=== PATIENT | male | born 1955 | race American Indian/Alaskan Native ===

== ENCOUNTER 2017-02-11 20:41 | Inpatient (IN) | payer OTHER ==
[2017-02-11 21:23] LABS: Basophils % (Auto) 0.5 % (0.0-1.8); Hematocrit 32.5 % (35.5-45.6); Mean Corpuscular HGB Conc 34 % (32-34); Mean Corpuscular Hemoglobin 23 pg (28-32); Mean Corpuscular Volume 69 fl (84-94); Platelet Count 227 K/mm3 (140-440); Red Blood Count 4.74 M/mm3 (3.65-5.03); Red Cell Distribution Width 16.5 % (13.2-15.2); White Blood Count 9.2 K/mm3 (4.5-11.0)
[2017-02-11 21:36] LABS: Anion Gap 17 mmol/L; BUN/Creatinine Ratio 19; Blood Urea Nitrogen 26 mg/dL (9-20); Calcium 9.1 mg/dL (8.4-10.2); Carbon Dioxide 25 mmol/L (22-30); Chloride 100.9 mmol/L (98-107); Glucose 249 mg/dL (75-100); Potassium 3.8 mmol/L (3.6-5.0); Sodium 139 mmol/L (137-145)
[2017-02-12] MEDS ORDERED: ZOFRAN IV ONE (01:38)
[2017-02-12] MEDS ORDERED: NITRO-BID 2% TP ONE (01:38)
[2017-02-12] MEDS ORDERED: MORPHINE IV ONE (01:38)
[2017-02-12] MEDS ORDERED: ASPIRIN PO ONE (01:38)
--- NOTE | 2017-02-12 01:43 | Emergency Department Report ---
HPI - General Chief Complaint: Chest Pain Time Seen by Provider: 02/12/17 01:30 - HPI HPI: Room 4 The patient is a 61-year-old male presenting with a chief complaint of chest pain. The patient states his symptoms began this afternoon at approximately 13: 00 all at rest. The patient states she developed substernal left-sided chest tightness that has been intermittent. Patient denies shortness of breath, nausea/vomiting or diaphoresis. The patient currently gets his chest tightness score of 5/10. The patient states his last cardiac catheterization occurred 4- 5 years ago when he had cardiac stents placed Location: Chest Duration: Intermittent since 13:00 Quality: Tightness Severity: 5/10 Modifying factors: [see above] Context: [see above] Mode of transportation: [not driving] ED Past Medical Hx - Past Medical History Hx Hypertension: Yes Hx Heart Attack/AMI: Yes (X2) Hx Diabetes: Yes - Surgical History Hx Coronary Stent: Yes Additional Surgical History: 2 cardiac stents - Family History Family history: no significant - Social History Smoking Status: Former Smoker (none 5 years) Substance Use Type: None (denies illicit drug use) - Medications Home Medications: Home Medications Medication Instructions Recorded Confirmed Last Taken Type Amlodipine Besylate [Norvasc] 10 mg PO QDAY 07/12/13 09/22/15 07/11/13 19:30 History 10 mg Aspirin [Aspirin Enteric Coated] 325 mg PO QDAY 07/12/13 09/22/15 07/11/13 06: 00 History 325 mg Doxazosin [Cardura] 2 mg PO QHS 07/12/13 09/22/15 07/11/13 19:30 History 1 mg Losartan [Cozaar] 100 mg PO QDAY 07/12/13 09/22/15 07/10/13 History 50 mg Metoprolol [Lopressor TAB] 25 mg PO BID 07/12/13 09/22/15 07/11/13 19:30 History 25 mg Prasugrel [Effient] 10 mg PO QDAY 07/12/13 09/22/15 07/11/13 06:00 History 10 mg Simvastatin 40 mg PO QHS 07/06/15 09/22/15 Unknown History Ciprofloxacin HCl [Ciprofloxacin 500 mg PO Q12HR #20 tab 09/22/15 Unknown Rx TAB] HYDROcodone/APAP 5-325 [[place] 1 each PO Q6HR PRN #20 tablet 09/22/15 Unknown Rx 5/325] ED Review of Systems ROS: Stated complaint: CHEST PAIN Other details as noted in HPI Comment: All other systems reviewed and negative Constitutional: denies: chills, fever Eyes: denies: eye pain, eye discharge, vision change ENT: denies: ear pain, throat pain Respiratory: denies: cough, shortness of breath, wheezing Cardiovascular: chest pain Endocrine: no symptoms reported Gastrointestinal: denies: abdominal pain, nausea, diarrhea Genitourinary: denies: urgency, dysuria Musculoskeletal: denies: back pain, joint swelling, arthralgia Skin: denies: rash, lesions Neurological: denies: headache, weakness, paresthesias Psychiatric: denies: anxiety, depression Hematological/Lymphatic: denies: easy bleeding, easy bruising Physical Exam - Physical Exam Vital Signs: Vital Signs 02/11/17 02/12/17 20:47 00:49 Temperature 98.3 F 98.2 F Pulse Rate 78 71 Respiratory 14 Rate Blood Pressure 168/70 Blood Pressure 168/81 [Left] O2 Sat by Pulse 98 99 Oximetry Physical Exam: GENERAL: The patient is well-developed well-nourished male lying on stretcher not appearing to be in acute distress. [] HEENT: Normocephalic. Atraumatic. Extraocular motions are intact. Patient has moist mucous membranes. NECK: Supple. Trachea midline CHEST/LUNGS: Clear to auscultation. There is no respiratory distress noted. HEART/CARDIOVASCULAR: Regular. There is no tachycardia. There is no gallop rub or murmur. ABDOMEN: Abdomen is soft, nontender. Patient has normal bowel sounds. There is no abdominal distention. SKIN: There is no rash. There is no diaphoresis. NEURO: The patient is awake, alert, and oriented. The patient is cooperative. The patient has normal speech MUSCULOSKELETAL:There is no evidence of acute injury. ED Course Vital Signs 02/11/17 02/12/17 20:47 00:49 Temperature 98.3 F 98.2 F Pulse Rate 78 71 Respiratory 14 Rate Blood Pressure 168/70 Blood Pressure 168/81 [Left] O2 Sat by Pulse 98 99 Oximetry ED Medical Decision Making - Lab Data Result diagrams: 02/11/17 21:11 02/11/17 21:11 Laboratory Tests 02/11/17 02/11/17 02/12/17 21:11 21:11 00:28 WBC 9.2 RBC 4.74 Hgb 11.0 L Hct 32.5 L MCV 69 L MCH 23 L MCHC 34 RDW 16.5 H Plt Count 227 Lymph % (Auto) 26.2 [place] % (Auto) 7.6 H Eos % (Auto) 1.0 Baso % (Auto) 0.5 Lymph # 2.4 [place] # 0.7 Eos # 0.1 Baso # 0.0 Seg Neutrophils % 64.7 Seg Neutrophils # 6.0 Sodium 139 Potassium 3.8 Chloride 100.9 Carbon Dioxide 25 Anion Gap 17 BUN 26 H Creatinine 1.4 Estimated GFR > 60 BUN/Creatinine Ratio 19 Glucose 249 H Calcium 9.1 Troponin T < 0.010 < 0.010 - EKG Data -: EKG Interpreted by Me EKG shows normal: sinus rhythm Rate: normal - EKG Data When compared to previous EKG there are: no significant change Interpretation: unchanged when compared t (09/22/2015) - Radiology Data Radiology results: image reviewed (chest x-ray) interpreted by me: Chest x-ray-no focal infiltrates, no pneumothorax - Differential Diagnosis ACS, GERD, pericarditis Critical care attestation.: If time is entered above; I have spent that time in minutes in the direct care of this critically ill patient, excluding procedure time. ED Disposition Clinical Impression: Chest pain Disposition: 09 OP ADMIT IP TO THIS HOSP Is pt being admited?: Yes Does the pt Need Aspirin: Yes Condition: Fair Instructions: Chest Pain (ED) Referrals: PRIMARY CARE, [Primary Care Provider] - 3-5 Days Time of Disposition: 02:02 (hospitalist paged)
[2017-02-12] MEDS ORDERED: ZOFRAN IV PRN (04:04)
[2017-02-12] MEDS ORDERED: TYLENOL PO PRN (04:04)
[2017-02-12] MEDS ORDERED: MORPHINE IV PRN (04:04)
[2017-02-12] MEDS ORDERED: MILK OF MAGNESIA PO PRN (04:04)
[2017-02-12] MEDS ORDERED: DULCOLAX PR PRN (04:04)
--- NOTE | 2017-02-12 04:33 | History and Physical Report ---
History of Present Illness Date of examination: 02/12/17 Date of admission: 02/12/17 04:04 History of present illness: 61 -year-old man with history of diabetes type 2, coronary artery disease complains of chest that was started today. Pain is in the left lateral chest and shoulder, which he is unable to describe, intermittent in nature lasting for 10 minutes, intensity 5/10, no radiation. He cannot identify exacerbating or relieving factors. He denies nausea vomiting, shortness of breath, diaphoresis and palpitation Review Of Systems: Constitutional: no weight loss Ears, eyes, nose, mouth and throat: no nasal congestion, no nasal discharge, no sinus pressure, blurry vision, diplopia Neck: No neck pain or rigidity. Cardiovascular: no orthopnea, palpitations Respiratory: No shortness of breath, cough Gastrointestinal: abdominal pain, hematochezia Genitourinary : no dysuria, frequency , hematuria Musculoskeletal: no muscle ache Integumentary: no rash, no pruritis Neurological: no parathesias, focal weakness Endocrine: no cold or heat intolerance, no polyuria or polydipsia Hematologic/Lymphatic: no easy bruising, no easy bleeding, no gland swelling Allergic/Immunologic: no urticaria, no angioedema. PAST MEDICAL HISTORY:diabetes type 2, coronary artery disease PAST SURGICAL HISTORY: None SOCIAL HISTORY: Denies alcohol, tobacco, drugs FAMILY HISTORY: Hypertension Medications and Allergies Allergies Allergy/AdvReac Type Severity Reaction Status Date / Time No Known Allergies Allergy Verified 07/11/13 22:02 Home Medications Medication Instructions Recorded Confirmed Last Taken Type Amlodipine Besylate [Norvasc] 10 mg PO QPM 07/12/13 02/12/17 07/11/13 19:30 History 10 mg Aspirin [Aspirin Enteric Coated] 81 mg PO QDAY 07/12/13 02/12/17 07/11/13 06:00 History 325 mg Doxazosin [Cardura] 2 mg PO QHS 07/12/13 02/12/17 07/11/13 19:30 History 1 mg Losartan [Cozaar] 100 mg PO QDAY 07/12/13 02/12/17 07/10/13 History 50 mg Metoprolol [Lopressor TAB] 25 mg PO BID 07/12/13 02/12/17 07/11/13 19:30 History 25 mg Prasugrel [Effient] 10 mg PO QDAY 07/12/13 02/12/17 07/11/13 06:00 History 10 mg Simvastatin 40 mg PO QHS 07/06/15 02/12/17 Unknown History Active Meds: Active Medications Acetaminophen (Tylenol) 650 mg PO Q4H PRN PRN Reason: Pain MILD(1-3)/Fever >100.5/CUEVA Bisacodyl (Dulcolax) 10 mg [place] QDAY PRN PRN Reason: Constipation unrelieved by MOM Enoxaparin Sodium (Lovenox) 40 mg SUB-Q QDAY SOL Magnesium Hydroxide (Milk Of Magnesia) 30 ml PO Q4H PRN PRN Reason: Constipation Morphine Sulfate (Morphine) 2 mg IV Q4H PRN PRN Reason: Pain, Moderate (4-6) Ondansetron HCl (Zofran) 4 mg IV Q8H PRN PRN Reason: N/V unrelieved by Reglan Exam - Physical Exam Narrative exam: Gen. appearance: Patient lying in bed in no acute distress HEENT: Normocephalic/atraumatic, pupils equal round reactive to light, extra alkaline movement intact, no scleral icterus, no JVD or thyromegaly or nodule, neck is supple, mucous membrane moist, no erythema or exudate Heart: S1-S2, regular rate and rhythm Lungs: Clear to auscultation bilateral breathing comfortable Abdomen: Positive bowel sounds, nontender, nondistended, no organomegaly Extremities: No edema, cyanosis, clubbing Neuro:: Oriented 3 , cranial nerves II-12 intact, speech, motor intact Skin: No rash, nodules, warm dry - Constitutional Vitals: Temp Pulse Resp BP Pulse Ox 98.5 F 70 16 167/83 100 02/12/17 04:15 02/12/17 04:15 02/12/17 04:15 02/12/17 04:15 02/12/17 04:15 Results - Labs CBC & Chem 7: 02/13/17 04:58 02/13/17 04:58 - Imaging and Cardiology EKG: image reviewed Chest x-ray: image reviewed Assessment and Plan Assessment Unstable angina Diabetes type 2 uncontrolled Coronary artery disease Admit to medicine Check cardiac enzymes, lipid profile and obtain stress test Check fingersticks initiated insulin scale continue appropriate outpatient medications Start DVT prophylaxis Plan
[2017-02-12] MEDS ORDERED: D50W (25GM) Syringe IV PRN (04:35)
[2017-02-12 04:59] LABS: Creatine Kinase MB 2.7 ng/mL (0.0-4.0)
[2017-02-12 05:01] LABS: Creatine Kinase 92 units/L (55-170)
--- NOTE | 2017-02-12 07:21 | XRay Report ---
Single view chest: History: Chest pain. Findings: Normal cardiomediastinal silhouette. Trachea is midline. No consolidation, pneumothorax or pleural effusion. Impression: No acute cardiopulmonary findings.
[2017-02-12 08:26] LABS: Creatine Kinase MB 2.6 ng/mL (0.0-4.0)
[2017-02-12] MEDS ORDERED: LEXISCAN IV ONE ×2 (10:54→10:57)
--- NOTE | 2017-02-12 13:08 | Consultation ---
History of Present Illness Consult date: 02/12/17 Consult reason: chest pain History of present illness: This is a 61yr old male with a history of multivessel coronary artery disease who presented with complaints of chest pain. There was no reports of shortness of breath, dizziness or palpitations. No acute ischemic changes on his ECG. His most recent cardiac workup was a negative exercise treadmill test done 2 years ago. Patient was admitted for rule out ACS with a persantine stress thallium test today. Cardiology consultation was requested. Medications and Allergies Allergies Allergy/AdvReac Type Severity Reaction Status Date / Time No Known Allergies Allergy Verified 07/11/13 22:02 Home Medications Medication Instructions Recorded Confirmed Last Taken Type Amlodipine Besylate [Norvasc] 10 mg PO QPM 07/12/13 02/12/17 07/11/13 19:30 History 10 mg Aspirin [Aspirin Enteric Coated] 81 mg PO QDAY 07/12/13 02/12/17 07/11/13 06:00 History 325 mg Doxazosin [Cardura] 2 mg PO QHS 07/12/13 02/12/17 07/11/13 19:30 History 1 mg Losartan [Cozaar] 100 mg PO QDAY 07/12/13 02/12/17 07/10/13 History 50 mg Metoprolol [Lopressor TAB] 25 mg PO BID 07/12/13 02/12/17 07/11/13 19:30 History 25 mg Prasugrel [Effient] 10 mg PO QDAY 07/12/13 02/12/17 07/11/13 06:00 History 10 mg Simvastatin 40 mg PO QHS 07/06/15 02/12/17 Unknown History Active Meds: Active Medications Acetaminophen (Tylenol) 650 mg PO Q4H PRN PRN Reason: Pain MILD(1-3)/Fever >100.5/CUEVA Bisacodyl (Dulcolax) 10 mg SD QDAY PRN PRN Reason: Constipation unrelieved by MOM Dextrose (D50w (25gm) Syringe) 50 ml IV PRN PRN PRN Reason: Hypoglycemia Enoxaparin Sodium (Lovenox) 40 mg SUB-Q QDAY SOL Insulin Aspart (Novolog) 0 units SUB-Q ACHS SOL PRN Reason: Protocol Magnesium Hydroxide (Milk Of Magnesia) 30 ml PO Q4H PRN PRN Reason: Constipation Morphine Sulfate (Morphine) 2 mg IV Q4H PRN PRN Reason: Pain, Moderate (4-6) Ondansetron HCl (Zofran) 4 mg IV Q8H PRN PRN Reason: N/V unrelieved by Reglan Physical Examination Vital Signs Temp Pulse BP Pulse Ox 98.3 F 78 168/70 98 02/11/17 20:47 02/11/17 20:47 02/11/17 20:47 02/11/17 20:47 General appearance: no acute distress HEENT: Positive: PERRL Neck: Positive: trachea midline Cardiac: Positive: Reg Rate and Rhythm Results 02/11/17 21:11 02/11/17 21:11 Cardiac Enzymes 02/12/17 02/12/17 Range/Units 04:13 06:31 CK-MB (CK-2) 2.7 2.6 (0.0-4.0) ng/mL Assessment and Plan Chest pain Hx of multivessel CAD Hypertension Diabetes mellitus
[2017-02-12] MEDS: NOVOLOG SUB-Q SCH ×5 (14:27→21:15)
[2017-02-12] MEDS: LOVENOX SUB-Q SCH ×2 (14:27→14:33)
--- NOTE | 2017-02-12 16:28 | Event Note ---
Date: 02/12/17 patient seen and examined, in no acute distress. Believes this could be secondary to Excessive PT. Will monitor.
--- NOTE | 2017-02-13 01:31 | Treadmill Report ---
THALIUM STRESS REPORT LEFT VENTRICLE: Left ventricular chamber size is within normal. Perfusion study demonstrates homogeneous uptake of the tracer in all segments. No significant perfusion defects identified. Mild diaphragmatic attenuation artifact is noted. Gated analysis demonstrates normal left ventricular systolic function, ejection fraction 64%. CONCLUSION: Normal myocardial perfusion study. JOB# [id number] CA/NTS
[2017-02-13] MEDS ORDERED: APRESOLINE IV PRN (04:47)
[2017-02-13 05:35] LABS: Basophils % (Auto) 0.4 % (0.0-1.8); Eosinophils % (Auto) 0.9 % (0.0-4.3); Hematocrit 31.2 % (35.5-45.6); Hemoglobin 10.6 gm/dl (11.8-15.2); Mean Corpuscular HGB Conc 34 % (32-34); Platelet Count 202 K/mm3 (140-440); Red Blood Count 4.54 M/mm3 (3.65-5.03); Red Cell Distribution Width 16.5 % (13.2-15.2); White Blood Count 7.9 K/mm3 (4.5-11.0)
[2017-02-13 05:36] LABS: Mean Corpuscular Hemoglobin 23 pg (28-32); Mean Corpuscular Volume 69 fl (84-94)
[2017-02-13 05:42] LABS: Anion Gap 16 mmol/L; BUN/Creatinine Ratio 13; Blood Urea Nitrogen 16 mg/dL (9-20); Calcium 8.8 mg/dL (8.4-10.2); Carbon Dioxide 26 mmol/L (22-30); Chloride 103.7 mmol/L (98-107); Glucose 110 mg/dL (75-100); Potassium 3.7 mmol/L (3.6-5.0); Sodium 142 mmol/L (137-145)
[2017-02-13 06:46] VITALS: BP 146/82
--- NOTE | 2017-02-13 09:50 | Discharge Summary ---
Providers - Providers Date of Admission: 02/12/17 04:04 Attending physician: ABDULLAHI MONET MD 02/12/17 08:43 Consult to Physician [CONS] Routine Consulting Provider: CHELA LOO Reason For Exam: CHEST PAIN, CAD Place consult to:: [place] Notified:: YES Primary care physician: [employer] Hospitalization Reason for admission: chest pain Condition: Stable Hospital course: 61 -year-old man with history of diabetes type 2, coronary artery disease complains of chest that was started today. Pain is in the left lateral chest and shoulder, which he is unable to describe, intermittent in nature lasting for 10 minutes, intensity 5/10, no radiation. He cannot identify exacerbating or relieving factors. He denies nausea vomiting, shortness of breath, diaphoresis and palpitation on admission after stress test which came back negative the patient reported that he had just finished physical therapy today prior to this pain. Was seen by cardiology and this was echoed as possibly musculoskeletal chest pain. Patient does not have any stable and generally stable at this time for discharge. Discharge diagnoses Atypical chest pain-costochondritis Diabetes type 2 uncontrolled Coronary artery disease Disposition: DC-01 TO HOME OR SELFCARE Time spent for discharge: 35 MINS Core Measure Documentation - Palliative Care Palliative Care/ Comfort Measures: Not Applicable - Core Measures Any of the following diagnoses?: none - VTE Discharge Requirements Deep Vein Thrombosis/Pulmonary Embolism Present on Admission: No Exam - Physical Exam Narrative exam: VITAL SIGNS: Reviewed. GENERAL: The patient appeared well nourished and normally developed. Vital signs as documented. HEAD: No signs of head trauma. EYES: Pupils are equal. Extraocular motions intact. EARS: Hearing grossly intact. MOUTH: Oropharynx is normal. NECK: No adenopathy, no JVD. CHEST: Chest with clear breath sounds bilaterally. No wheezes, rales, or rhonchi. CARDIAC: Regular rate and rhythm. S1 and S2, without murmurs, gallops, or rubs. VASCULAR: No Edema. Peripheral pulses normal and equal in all extremities. ABDOMEN: Soft, without detectable tenderness. No sign of distention. No rebound or guarding, and no masses palpated. Bowel Sounds normal. MUSCULOSKELETAL: Good range of motion of all major joints. Extremities without clubbing, cyanosis or edema. NEUROLOGIC EXAM: Alert and oriented x 3. No focal sensory or strength deficits. Speech normal. Follows commands. PSYCHIATRIC: Mood normal. SKIN: No rash or lesions. - Constitutional Vitals: Temp Pulse Resp BP Pulse Ox 98.5 F 67 18 146/82 100 02/13/17 03:56 02/13/17 05:14 02/13/17 03:56 02/13/17 06:45 02/13/17 03:56 Plan Activity: advance as tolerated, fall precautions Diet: low fat Follow up with: [facility] [Provider Group] - 7 Days CHELA LOO MD [Staff Physician] - 7 Days PRIMARY CAREMD [Primary Care Provider] - 3-5 Days
[2017-02-13] MEDS: LOVENOX SUB-Q SCH (11:00)
--- NOTE | 2017-02-13 11:04 | Progress Note ---
Assessment and Plan Chest pain persantine thallium stress test was normal, no ischemia noted on myocardial perfusion imaging. Hx of multivessel CAD Hypertension Diabetes mellitus Continue medical therapy and risk factor modification for coronary artery disease. Stable cardiac tesfaye. Patient will follow up with [facility] as previously scheduled. Subjective Date of service: 02/13/17 Interval history: Patient denies chest pain. Objective Vital Signs Temp Pulse Resp BP BP Pulse Ox 02/13/17 10:30 99 02/13/17 06:45 146/82 02/13/17 05:14 67 187/94 02/13/17 03:56 98.5 F 67 18 187/94 100 02/13/17 00:26 98.7 F 62 18 166/74 96 02/12/17 21:01 98.5 F 60 18 165/84 98 02/12/17 20:28 20 98 02/12/17 19:45 63 02/12/17 16:57 98.4 F 67 18 173/83 98 02/12/17 14:35 99 02/12/17 12:17 62 02/12/17 11:40 97.5 F L 71 18 177/78 100 - Physical Examination General: No Apparent Distress HEENT: Positive: PERRL Neck: Positive: trachea midline Cardiac: Positive: Reg Rate and Rhythm - Labs and Meds CBC 02/13/17 Range/Units 04:58 WBC 7.9 (4.5-11.0) K/mm3 RBC 4.54 (3.65-5.03) M/mm3 Hgb 10.6 L (11.8-15.2) gm/dl Hct 31.2 L (35.5-45.6) % Plt Count 202 (140-440) K/mm3 Lymph # 1.7 (1.2-5.4) K/mm3 [place] # 0.6 (0.0-0.8) K/mm3 Eos # 0.1 (0.0-0.4) K/mm3 Baso # 0.0 (0.0-0.1) K/mm3 Comprehensive Metabolic Panel 02/13/17 Range/Units 04:58 Sodium 142 (137-145) mmol/L Potassium 3.7 (3.6-5.0) mmol/L Chloride 103.7 (98-107) mmol/L Carbon Dioxide 26 (22-30) mmol/L BUN 16 (9-20) mg/dL Creatinine 1.2 (0.8-1.5) mg/dL Glucose 110 H (75-100) mg/dL Calcium 8.8 (8.4-10.2) mg/dL - Imaging and Cardiology EKG: image reviewed
[2017-02-13] MEDS ORDERED: Fluarix Quad 2017-2018(36 MOS+) IM ONE (12:00)
== END 2017-02-13 11:35 | disposition home or self-care (01) | DRG 206 ==
LOC: ED 20:41 → 4A 02-12 04:04
PROVIDERS: ADMIT Internal Medicine; ATTEND Internal Medicine
PROC: 3E0234Z Introduction of Serum, Toxoid and Vaccine into Muscle, Percutaneous Approach (ICD-10-PCS; principal; 2017-02-12)
DX: M94.0 Chondrocostal junction syndrome [Tietze] (principal); I25.110 Atherosclerotic heart disease of native coronary artery with unstable angina pectoris; E11.9 Type 2 diabetes mellitus without complications; Z98.61 Coronary angioplasty status; Z79.82 Long term (current) use of aspirin; Z79.899 Other long term (current) drug therapy; Z87.891 Personal history of nicotine dependence; Z82.49 Family history of ischemic heart disease and other diseases of the circulatory system; Z23 Encounter for immunization
CPT/HCPCS: 36415; 71010; 78452; 80048; 82550; 82553; 82962; 84484; 85025; 90686; 93005; 93010; 93017; 96374; 96375; A9502; J0360; J1650; J1815; J2270; J2405; J2785

== ENCOUNTER 2019-04-13 11:43 | Inpatient (IN) | payer MEDICARE, OTHER ==
--- NOTE | 2019-04-13 11:52 | Emergency Department Report ---
Blank Doc - Documentation Documentation: 63-year-old male that presents with bilateral leg pain and swelling. HX of ca rdiac with stents. This initial assessment/diagnostic orders/clinical plan/treatment(s) is/are subject to change based on patient's health status, clinical progression and re- assessment by fellow clinical providers in the ED. Further treatment and workup at subsequent clinical providers discretion. Patient/guardians urged not to elope from the ED as their condition may be serious if not clinically assessed and managed. Initial orders include: 1- Patient sent to MAIN ED for further evaluation and treatment 2- labs 3- EKG 4- CXR
[2019-04-13 12:12] LABS: Basophils % (Auto) 0.4 % (0.0-1.8); Eosinophils # (Auto) 0.1 K/mm3 (0.0-0.4); Eosinophils % (Auto) 0.8 % (0.0-4.3); Hematocrit 35.1 % (35.5-45.6); Hemoglobin 11.6 gm/dl (11.8-15.2); Lymphocytes # (Auto) 1.6 K/mm3 (1.2-5.4); Lymphocytes % (Auto) 22.3 % (13.4-35.0); Mean Corpuscular HGB Conc 33 % (32-34); Mean Corpuscular Volume 75 fl (84-94); Monocytes # (Auto) 0.5 K/mm3 (0.0-0.8); Monocytes % (Auto) 6.8 % (0.0-7.3); Platelet Count 217 K/mm3 (140-440); Red Blood Count 4.68 M/mm3 (3.65-5.03); Red Cell Distribution Width 16.2 % (13.2-15.2)
[2019-04-13 12:22] LABS: INR 1.04 (0.87-1.13)
[2019-04-13 12:23] LABS: Partial Thromboplastin Time 26.6 Sec. (24.2-36.6)
[2019-04-13 12:37] LABS: Albumin 3.5 g/dL (3.9-5); Calcium 9.3 mg/dL (8.4-10.2)
--- NOTE | 2019-04-13 12:42 | XRay Report ---
CHEST 2 VIEWS INDICATION / CLINICAL INFORMATION: Chest Pain. COMPARISON: Chest x-ray on 02/12/2017. FINDINGS: SUPPORT DEVICES: None. HEART / MEDIASTINUM: No significant abnormality. LUNGS / PLEURA: No acute pulmonary or pleural abnormality. Small calcified granuloma in the left uppe r lobe. No pneumothorax. ADDITIONAL FINDINGS: No significant additional findings. IMPRESSION: 1. No acute findings. Signer Name: Issac Francis MD Signed: 04/13/2019 12:38 PM Workstation Name: [id number]
[2019-04-13] MEDS ORDERED: hydrALAZINE 20 MG/1 ML INJ IV ONE ×3 (12:45→15:29)
--- NOTE | 2019-04-13 13:45 | Emergency Department Report ---
HPI - General Chief Complaint: Extremity Problem,Nontraumatic Time Seen by Provider: 04/13/19 11:49 - HPI HPI: 63-year-old -[place] male presents to the emergency department with complaint of bilateral lower extremity swelling and uncontrolled blood pressure. Patient says that the swelling worsens or the day and his legs will get firm. He denies any chest pain, shortness of breath. He has a past medical history of diabetes, coronary artery disease with previous FL and cardiac stents 2, elevated cholesterol. 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 Huber hart, about 2 months ago, and had some blood pressure medications changed. Otherwise he says he has been compliant with the medications. He is a former smoker, having quit about 4-5 years ago. No recent travel, recent surgery or immobility. ED Past Medical Hx - Past Medical History Previous Medical History?: Yes Hx Hypertension: Yes Hx Heart Attack/AMI: Yes (X2) Hx Congestive Heart Failure: No Hx Diabetes: Yes Hx Deep Vein Thrombosis: No Hx Pulmonary Embolism: No Hx Liver Disease: No Hx Renal Disease: No Hx Sickle Cell Disease: No Hx Arthritis: No Hx Seizures: No Hx Kidney Stones: No Hx Asthma: No Hx COPD: No Hx Tuberculosis: No Hx Dementia: No Hx HIV: No Additional medical history: elevated cholesterol - Surgical History Past Surgical History?: Yes Hx Coronary Stent: Yes Hx Open Heart Surgery: No Hx Pacemaker: No Hx Internal Defibrillator: No Hx Cholecystectomy: No Hx Appendectomy: No Hx Breast Surgery: No Additional Surgical History: 2 cardiac stents - Social History Smoking Status: Never Smoker Substance Use Type: None - Medications Home Medications: Home Medications Medication Instructions Recorded Confirmed Last Taken Type Amlodipine Besylate [Norvasc] 10 mg PO QPM 07/12/13 02/12/17 07/11/13 19:30 History 10 mg Aspirin [Aspirin Enteric Coated] 81 mg PO QDAY 07/12/13 02/12/17 07/11/13 06:00 History 325 mg Doxazosin [Cardura] 2 mg PO QHS 07/12/13 02/12/17 07/11/13 19:30 History 1 mg Losartan [Cozaar] 100 mg PO QDAY 07/12/13 02/12/17 07/10/13 History 50 mg Metoprolol [Lopressor TAB] 25 mg PO BID 03/08/2202/12/17 07/11/13 19:30 History 25 mg Prasugrel [Effient] 10 mg PO QDAY 07/12/13 02/12/17 07/11/13 06:00 History 10 mg Simvastatin 40 mg PO QHS 07/06/15 02/12/17 Unknown History ED Review of Systems ROS: Stated complaint: BACK PAIN/LEGS SWOLLEN Other details as noted in HPI Comment: All other systems reviewed and negative Constitutional: denies: chills, fever Eyes: denies: eye pain, vision change ENT: denies: ear pain, throat pain Respiratory: denies: cough, shortness of breath Cardiovascular: edema. denies: chest pain, palpitations Gastrointestinal: denies: abdominal pain, vomiting Genitourinary: denies: dysuria, discharge Musculoskeletal: denies: joint swelling, arthralgia Skin: denies: rash, lesions Neurological: denies: headache, numbness, paresthesias Physical Exam - Physical Exam Vital Signs: Vital Signs 04/13/19 04/13/19 04/13/19 11:51 12:26 12:30 Temperature 97.6 F Pulse Rate 86 79 98 H Respiratory 18 17 17 Rate Blood Pressure 215/106 226/92 Blood Pressure [Left] O2 Sat by Pulse 100 99 99 Oximetry 04/13/19 04/13/19 04/13/19 12:34 12:46 12:51 Temperature Pulse Rate 78 70 69 Respiratory 20 21 Rate Blood Pressure 222/102 222/102 Blood Pressure 226/92 [Left] O2 Sat by Pulse 99 99 Oximetry 04/13/19 04/13/19 04/13/19 13:00 13:16 13:30 Temperature Pulse Rate 73 76 76 Respiratory 19 16 17 Rate Blood Pressure 200/79 191/80 191/80 Blood Pressure [Left] O2 Sat by Pulse 100 100 100 Oximetry Physical Exam: GENERAL: The patient is well-developed well-nourished. HENT: Normocephalic. Atraumatic. Patient has moist mucous membranes. EYES: Extraocular motions are intact. NECK: Supple. Trachea is midline. CHEST/LUNGS: Clear to auscultation. There is no respiratory distress noted. HEART/CARDIOVASCULAR: Regular. There is no tachycardia. There is no murmur. ABDOMEN: Abdomen is soft, nontender. Patient has normal bowel sounds. There is no abdominal distention. SKIN: Skin is warm and dry. There is some mild swelling to the bilateral feet and ankles. NEURO: The patient is awake, alert, and oriented. The patient is cooperative. The patient has no focal neurologic deficits. Normal speech. MUSCULOSKELETAL: There is no tenderness or deformity. There is no evidence of acute injury. ED Course Vital Signs 04/13/19 04/13/19 04/13/19 11:51 12:26 12:30 Temperature 97.6 F Pulse Rate 86 79 98 H Respiratory 18 17 17 Rate Blood Pressure 215/106 226/92 Blood Pressure [Left] O2 Sat by Pulse 100 99 99 Oximetry 04/13/19 04/13/19 04/13/19 12:34 12:46 12:51 Temperature Pulse Rate 78 70 69 Respiratory 20 21 Rate Blood Pressure 222/102 222/102 Blood Pressure 226/92 [Left] O2 Sat by Pulse 99 99 Oximetry 04/13/19 04/13/19 04/13/19 13:00 13:16 13:30 Temperature Pulse Rate 73 76 76 Respiratory 19 16 17 Rate Blood Pressure 200/79 191/80 191/80 Blood Pressure [Left] O2 Sat by Pulse 100 100 100 Oximetry ED Medical Decision Making - Lab Data Result diagrams: 04/13/19 12:00 04/13/19 12:00 - EKG Data -: EKG Interpreted by Me EKG shows normal: sinus rhythm (PACs), axis, intervals, QRS complexes (LVH), ST- T waves Rate: normal - EKG Data When compared to previous EKG there are: previous EKG unavailable Interpretation: LVH - Radiology Data Radiology results: image reviewed interpreted by me: Chest x-ray does not show any acute process. There are no pleural effusions, obvious pneumonia and there is no pneumothorax. - Medical Decision Making This patient presents to the emergency department with a complaint of uncontrolled blood pressure despite compliance, as well as bilateral lower extremity swelling. An EKG was done that does not show any signs of ST elevation FL or dysrhythmia. Chest x-ray does not show any pleural effusions or any other acute process. Patient's labs show acute renal failure with a GFR of 29. The last set of labs that we have here to compare with are from 2017 and he had normal kidney function at that time. Patient also has a slightly elevated and equivocal troponin level of 0.039. This may be related to his renal insufficiency as the patient is not currently having any chest or back pain, shortness of breath. A renal ultrasound has been ordered but not yet completed. The patient will be admitted to the hospital for further evaluation and treatment and was accepted for admission by the hospitalist, Dr. King. - Differential Diagnosis CHF, venous stasis, FL Critical Care Time: No Critical care attestation.: If time is entered above; I have spent that time in minutes in the direct care of this critically ill patient, excluding procedure time. ED Disposition Clinical Impression: Hypertensive urgency, Lower extremity edema, Elevated troponin Acute renal failure Qualifiers: Acute renal failure type: unspecified Qualified Code(s): N17.9 - Acute kidney failure, unspecified Disposition: DC-09 OP ADMIT IP TO THIS HOSP Is pt being admited?: Yes Condition: Fair Time of Disposition: 14:25
[2019-04-13 13:47] LABS: Chol/HDL Ratio 3.06 %
--- NOTE | 2019-04-13 15:08 | History and Physical Report ---
History of Present Illness Date of examination: 04/13/19 Date of admission: 04/13/2019 Chief complaint: bilateral leg edema History of present illness: Patient is 63-year-old male with past medical history of acute SD, diabetes and hypertension. He presents to with complaints of bilateral leg edema with painful gait and elevated blood pressure 3 days. Patient states he has had leg edema intermittently 1 year, but he was concerned about the discoloration to his right foot. Patient states that he is followed by medical records auditor Dr. Ngo and he was last seen in office 2 months ago with changes made to his antihypertensive medications. He denies chest pain or shortness of breath on assessment. Past History Past Medical History: acute SD, CAD, diabetes, hypertension Past Surgical History: PTCA (w/ 2 stents) Social history: smoking (quit 6 years ago), full code Family history: CAD, diabetes Medications and Allergies Allergies Allergy/AdvReac Type Severity Reaction Status Date / Time No Known Allergies Allergy Verified 07/11/13 22:02 Home Medications Medication Instructions Recorded Confirmed Last Taken Type Amlodipine Besylate [Norvasc] 10 mg PO QPM 07/12/13 04/13/19 07/11/13 19:30 History 10 mg Doxazosin [Cardura] 2 mg PO QHS 07/12/13 04/13/19 07/11/13 19:30 History 1 mg Losartan [Cozaar] 100 mg PO QDAY 07/12/13 04/13/19 07/10/13 History 50 mg Metoprolol [Lopressor TAB] 25 mg PO BID 07/12/13 04/13/19 07/11/13 19:30 History 25 mg Simvastatin 40 mg PO QHS 07/06/15 04/13/19 Unknown History Clopidogrel [Plavix] 75 mg PO QDAY 04/13/19 04/13/19 Unknown History NIFEdipine [Nifedipine ER] 90 mg PO QDAY 04/13/19 04/13/19 Unknown History Review of Systems Constitutional: no fever, no chills, no sweats Exam - Constitutional Vitals: Temp Pulse Resp BP Pulse Ox 97.6 F 76 17 191/80 100 04/13/19 11:51 04/13/19 13:30 04/13/19 13:30 04/13/19 13:30 04/13/19 13:30 Results - Labs CBC & Chem 7: 04/13/19 12:00 04/13/19 12:00 Labs: Laboratory Last Values WBC 7.0 K/mm3 (4.5-11.0) 04/13/19 12:00 RBC 4.68 M/mm3 (3.65-5.03) 04/13/19 12:00 Hgb 11.6 gm/dl (11.8-15.2) L 04/13/19 12:00 Hct 35.1 % (35.5-45.6) L 04/13/19 12:00 MCV 75 fl (84-94) L 04/13/19 12:00 MCH 25 pg (28-32) L 04/13/19 12:00 MCHC 33 % (32-34) 04/13/19 12:00 RDW 16.2 % (13.2-15.2) H 04/13/19 12:00 Plt Count 217 K/mm3 (140-440) 04/13/19 12:00 Lymph % (Auto) 22.3 % (13.4-35.0) 04/13/19 12:00 [place] % (Auto) 6.8 % (0.0-7.3) 04/13/19 12:00 Eos % (Auto) 0.8 % (0.0-4.3) 04/13/19 12:00 Baso % (Auto) 0.4 % (0.0-1.8) 04/13/19 12:00 Lymph # 1.6 K/mm3 (1.2-5.4) 04/13/19 12:00 [place] # 0.5 K/mm3 (0.0-0.8) 04/13/19 12:00 Eos # 0.1 K/mm3 (0.0-0.4) 04/13/19 12:00 Baso # 0.0 K/mm3 (0.0-0.1) 04/13/19 12:00 Seg Neutrophils % 69.7 % (40.0-70.0) 04/13/19 12:00 Seg Neutrophils # 4.9 K/mm3 (1.8-7.7) 04/13/19 12:00 PT 13.5 Sec. (12.2-14.9) 04/13/19 12:00 INR 1.04 (0.87-1.13) 04/13/19 12:00 APTT 26.6 Sec. (24.2-36.6) 04/13/19 12:00 Sodium 143 mmol/L (137-145) 04/13/19 12:00 Potassium 4.9 mmol/L (3.6-5.0) 04/13/19 12:00 Chloride 106.1 mmol/L (98-107) 04/13/19 12:00 Carbon Dioxide 23 mmol/L (22-30) 04/13/19 12:00 Anion Gap 19 mmol/L 04/13/19 12:00 BUN 36 mg/dL (9-20) H 04/13/19 12:00 Creatinine 2.7 mg/dL (0.8-1.5) H 04/13/19 12:00 Estimated GFR 29 ml/min 04/13/19 12:00 BUN/Creatinine Ratio 13 % 04/13/19 12:00 Glucose 292 mg/dL (75-100) H 04/13/19 12:00 Calcium 9.3 mg/dL (8.4-10.2) 04/13/19 12:00 Total Bilirubin 0.40 mg/dL (0.1-1.2) 04/13/19 12:00 AST 12 units/L (5-40) 04/13/19 12:00 ALT 8 units/L (7-56) 04/13/19 12:00 Alkaline Phosphatase 101 units/L (35-129) 04/13/19 12:00 Troponin T 0.039 ng/mL (0.00-0.029) H 04/13/19 12:00 NT-Pro-B Natriuret Pep 1384 pg/mL (0-900) H 04/13/19 12:00 Total Protein 6.9 g/dL (6.3-8.2) 04/13/19 12:00 Albumin 3.5 g/dL (3.9-5) L 04/13/19 12:00 Albumin/Globulin Ratio 1.0 % 04/13/19 12:00 Triglycerides 108 mg/dL (2-149) 04/13/19 12:00 Cholesterol 199 mg/dL (50-199) 04/13/19 12:00 LDL Cholesterol Direct 125 mg/dL (50-130) 04/13/19 12:00 HDL Cholesterol 65 mg/dL (40-59) H 04/13/19 12:00 Cholesterol/HDL Ratio 3.06 % 04/13/19 12:00 - Imaging and Cardiology EKG: report reviewed (sinus rhythm (PACs), QRS complexes (LVH), ) Chest x-ray: report reviewed (No acute findings.) Assessment and Plan Assessment and plan: LUIS -Monitor BMP -Consult nephrology -IVF Hypertensive urgency -Monitor BP -Resume home meds, BB increased Lower extremity edema -- diuretic -Strict I/O -daily weight Elevated troponin possibly rt to acute kidney injury - troponin x2 Diabetes type 2 uncontrolled -Blood sugar checks -Sliding scale adjustment -A1c Anemia secondary to chronic kidney disease -monitor cbc DVT Prophylaxis -SCDs while patient in bed -Lovenox Advance Directives: Yes VTE prophylaxis?: Chemical Plan of care discussed with patient/family: Yes
[2019-04-13] MEDS ORDERED: ACETAMINOPHEN 325 MG TAB PO PRN ×2 (16:12→16:16)
[2019-04-13] MEDS ORDERED: ONDANSETRON 4 MG/2 ML INJ IV PRN ×2 (16:12→16:16)
[2019-04-13] MEDS ORDERED: oxyCODONE /ACETAMINOPHEN 5-325MG TAB PO PRN (16:13)
[2019-04-13] MEDS ORDERED: NON-FORMULARY EACH (Nifedipine [Nifedipine Er] 90 MG) PO SCH (16:15)
[2019-04-13] MEDS ORDERED: HYDROmorphone 1 MG/1 ML INJ IV PRN (16:16)
[2019-04-13] MEDS ORDERED: D5W/0.9% NACL 1,000 ML IV SCH (17:00)
--- NOTE | 2019-04-13 17:39 | Ultrasound Report ---
ULTRASOUND RENAL INDICATION: Acute renal failure. COMPARISON: CT scan dated 09/22/2015. FINDINGS: RIGHT KIDNEY: Size: 11.7 cm. Echogenicity: Normal. Cortical thickness: Normal. Stones: Calcifications are noted. Some of these likely represent stones. Some may be vascular.. Hydronephrosis: None. Cyst or mass: None. LEFT KIDNEY: Size: 11.5 cm. Echogenicity: Normal. Cortical thickness: Normal. Stones: Nephrolithiasis and vascular calcifications are noted.. Hydronephrosis: None. Cyst or mass: Small cyst are noted in the left kidney. The largest measures approximately 1.4 cm.. Urinary Bladder: No significant abnormality. Free Fluid: None. Additional Findings: None. IMPRESSION 1. No acute sonographic abnormality of the kidneys. Nephrolithiasis and vascular calcifications are n oted bilaterally. Signer Name: Mamadou Reese MD Signed: 04/13/2019 5:35 PM Workstation Name: [id number]
[2019-04-13] MEDS: LOSARTAN 50 MG TAB PO SCH (19:39)
[2019-04-13] MEDS: NIFEdipine XL 90 MG TAB PO SCH (19:39)
[2019-04-13] MEDS: CLOPIDOGREL 75 MG TAB PO SCH (19:39)
[2019-04-13] MEDS ORDERED: NON-FORMULARY EACH (Simvastatin [Simvastatin] 40 MG) PO SCH (22:00)
[2019-04-13] MEDS ORDERED: METOPROLOL TARTRATE 25 MG TAB PO SCH (22:00)
[2019-04-13] MEDS: PRAVASTATIN 80 MG TAB PO SCH (22:36)
[2019-04-13] MEDS: DOXAZOSIN 1 MG TAB PO SCH (22:36)
[2019-04-13] MEDS: METOPROLOL TARTRATE 50 MG TAB PO SCH (22:36)
[2019-04-13] MEDS: FAMOTIDINE 20 MG TAB PO SCH (22:39)
[2019-04-13] MEDS: hydrALAZINE 20 MG/1 ML INJ IV PRN (23:45)
[2019-04-14] MEDS ORDERED: DEXTROSE 50% IN WATER (25GM) 50 ML SYRINGE IV PRN (01:26)
[2019-04-14 05:28] LABS: Basophils % (Auto) 0.5 % (0.0-1.8); Eosinophils # (Auto) 0.1 K/mm3 (0.0-0.4); Eosinophils % (Auto) 1.3 % (0.0-4.3); Hematocrit 32.9 % (35.5-45.6); Hemoglobin 11.1 gm/dl (11.8-15.2); Lymphocytes # (Auto) 1.5 K/mm3 (1.2-5.4); Lymphocytes % (Auto) 23.7 % (13.4-35.0); Mean Corpuscular HGB Conc 34 % (32-34); Mean Corpuscular Volume 75 fl (84-94); Monocytes # (Auto) 0.6 K/mm3 (0.0-0.8); Platelet Count 200 K/mm3 (140-440)
[2019-04-14 05:48] LABS: Calcium 8.7 mg/dL (8.4-10.2)
[2019-04-14] MEDS: INSULIN LISPRO 100 UNIT/ML SUB-Q SCH ×4 (07:30→22:39)
[2019-04-14] MEDS ORDERED: ASPIRIN 325 MG TAB PO ONE (08:00)
--- NOTE | 2019-04-14 08:11 | Cat Scan Report ---
CT HEAD WITHOUT CONTRAST INDICATION / CLINICAL INFORMATION: STROKE PROTOCOL, Altered Mental Status. TECHNIQUE: Axial imaging performed from the skull apex through the skull base without the use of cont rast. Sagittal and coronal reformatted images. All CT scans at this location are performed using CT dose reduction for ALARA by means of automated exposure control. COMPARISON: None available. FINDINGS: CEREBRAL PARENCHYMA: Moderate hypoattenuation is identified throughout the white matter of the cerebr al hemispheres and miesha consistent with chronic microvascular ischemic disease. No large acute territ orial infarct is detected on noncontrast CT. No mass, mass effect or large chronic infarct. HEMORRHAGE: None. EXTRA-AXIAL SPACES: Normal in size and morphology for the patient's age. VENTRICULAR SYSTEM: Normal in size and morphology for the patient's age. MIDLINE SHIFT OR HERNIATION: None. CEREBELLUM / BRAINSTEM: No significant abnormality. CALVARIUM: No significant abnormality. ORBITS: Normal as visualized. PARANASAL SINUSES / MASTOID AIR CELLS: 1 cm polyp versus mucous retention cyst is noted in the inferi or right maxillary sinus. The remaining sinuses are clear. SOFT TISSUES of HEAD: No significant abnormality. ADDITIONAL FINDINGS: None. IMPRESSION: No acute intracranial abnormality is detected on noncontrast CT. Nonspecific chronic white matter florence nges as described. These findings were relayed to the patient's nurse, Kenia Weston, at 0759 hours EST. A read back was performed. Signer Name: Juan Carlos Jacobo Jr, MD Signed: 04/14/2019 8:06 AM Workstation Name: [id number]
--- NOTE | 2019-04-14 08:11 | Consultation ---
History of Present Illness Consult date: 04/14/19 Past History Past Medical History: acute NC, CAD, diabetes, hypertension Past Surgical History: PTCA (w/ 2 stents) Social history: smoking (quit 6 years ago), full code Family history: CAD, diabetes Medications and Allergies Allergies Allergy/AdvReac Type Severity Reaction Status Date / Time No Known Allergies Allergy Verified 07/11/13 22:02 Home Medications Medication Instructions Recorded Confirmed Last Taken Type Amlodipine Besylate [Norvasc] 10 mg PO QPM 07/12/13 04/13/19 07/11/13 19:30 History 10 mg Doxazosin [Cardura] 2 mg PO QHS 07/12/13 04/13/19 07/11/13 19:30 History 1 mg Losartan [Cozaar] 100 mg PO QDAY 07/12/13 04/13/19 07/10/13 History 50 mg Metoprolol [Lopressor TAB] 25 mg PO BID 07/12/13 04/13/19 07/11/13 19:30 History 25 mg Simvastatin 40 mg PO QHS 07/06/15 04/13/19 Unknown History Clopidogrel [Plavix] 75 mg PO QDAY 04/13/19 04/13/19 Unknown History NIFEdipine [Nifedipine ER] 90 mg PO QDAY 04/13/19 04/13/19 Unknown History Active Meds: Active Medications Acetaminophen (Tylenol) 650 mg PO Q4H PRN PRN Reason: Pain MILD(1-3)/Fever >100.5/CUEVA Clopidogrel Bisulfate (Plavix) 75 mg PO QDAY [facility] Last Admin: 04/13/19 19:39 Dose: 75 mg Documented by: Dextrose (D50w (25gm) Syringe) 0 ml IV Q30MIN PRN; Protocol PRN Reason: Hypoglycemia Doxazosin Mesylate (Cardura) 2 mg PO QHS [facility] Last Admin: 04/13/19 22:36 Dose: 2 mg Documented by: Famotidine (Pepcid) 20 mg PO DAILY [facility] Last Admin: 04/13/19 22:39 Dose: 20 mg Documented by: Hydralazine HCl (Apresoline) 10 mg IV Q3HR PRN PRN Reason: Hypertension Last Admin: 04/13/19 23:45 Dose: 10 mg Documented by: Hydromorphone HCl (Dilaudid) 0.5 mg IV Q3H PRN PRN Reason: Pain , Severe (7-10) Sodium Chloride (Nacl 0.45% 1000 Ml) 1,000 mls @ 100 mls/hr IV DIRECT [facility] Insulin Glargine (Lantus) 10 units SUB-Q BID [facility] Insulin Human Lispro (Humalog) 0 unit SUB-Q ACHS [facility]; Protocol Losartan Potassium (Cozaar) 100 mg PO QDAY [facility] Last Admin: 04/13/19 19:39 Dose: 100 mg Documented by: Metoprolol Tartrate (Metoprolol) 50 mg PO BID [facility] Last Admin: 04/13/19 22:36 Dose: 50 mg Documented by: Nifedipine (Procardia Xl) 90 mg PO QDAY [facility] Last Admin: 04/13/19 19:39 Dose: 90 mg Documented by: Ondansetron HCl (Zofran) 4 mg IV Q8H PRN PRN Reason: Nausea And Vomiting Oxycodone/Acetaminophen (Percocet 5/325) 1 tab PO Q6H PRN PRN Reason: Pain, Moderate (4-6) Pravastatin Sodium (Pravachol) 80 mg PO QHS [facility] Last Admin: 04/13/19 22:36 Dose: 80 mg Documented by: Sodium Chloride (Sodium Chloride Flush Syringe 10 Ml) 10 ml IV BID [facility] Last Admin: 04/13/19 22:37 Dose: 10 ml Documented by: Sodium Chloride (Sodium Chloride Flush Syringe 10 Ml) 10 ml IV PRN PRN PRN Reason: LINE FLUSH Physical Examination - Vital Signs Vital Signs: Vital Signs Temp Pulse Resp BP Pulse Ox 97.6 F 86 18 215/106 100 04/13/19 11:51 04/13/19 11:51 04/13/19 11:51 04/13/19 11:51 04/13/19 11:51 - Assessment Assessment Interval: Baseline - Level of Consciousness 1a. Level of Consciousness: alert/keenly responsive - LOC Questions 1b. LOC Questions: aphasic - LOC Command 1c. LOC Commands: performs no tasks correctly - Best Gaze 2. Best Gaze: normal - Visual 3. Visual: no visual loss - Facial Palsy 4. Facial Palsy: normal symmetrical movement - Motor Arm 5a. Motor Arm Left: no drift 5b. Motor Arm Right: no drift - Motor Leg 6a. Motor Leg Left: some gravity effort 6b. Motor Leg Right: some gravity effort - Limb Ataxia 7. Limb Ataxia: absent - Sensory 8. Sensory: normal - Best Language 9. Best Language: severe aphasia - Dysarthria 10. Dysarthria: severe dysarthria - Extinction and Inattention 11. Extinction/Inattention: no abnormality - Scoring Total Score: 12 Stroke Severity: Moderate Stroke Results - Laboratory Findings CBC and BMP: 04/14/19 04:09 04/14/19 04:09 Abnormal Lab Findings: Abnormal Labs 04/13/19 04/13/19 04/13/19 12:00 12:00 19:07 Hgb 11.6 L Hct 35.1 L MCV 75 L MCH 25 L RDW 16.2 H [place] % (Auto) Chloride BUN 36 H Creatinine 2.7 H Glucose 292 H POC Glucose Hemoglobin A1c Troponin T 0.039 H 0.042 H NT-Pro-B Natriuret Pep 1384 H Total Protein Albumin 3.5 L HDL Cholesterol 65 H 04/13/19 04/13/19 04/13/19 19:07 19:07 22:36 Hgb Hct MCV MCH RDW [place] % (Auto) Chloride BUN Creatinine Glucose POC Glucose Hemoglobin A1c 10.1 H Troponin T 0.044 H 0.040 H NT-Pro-B Natriuret Pep Total Protein Albumin HDL Cholesterol 04/14/19 04/14/19 04/14/19 01:20 04:09 04:09 Hgb 11.1 L Hct 32.9 L MCV 75 L MCH 25 L RDW 16.0 H [place] % (Auto) 9.0 H Chloride 109.7 H BUN 33 H Creatinine 2.5 H Glucose 269 H POC Glucose 238 H Hemoglobin A1c Troponin T NT-Pro-B Natriuret Pep Total Protein 5.8 L Albumin 3.0 L HDL Cholesterol 04/14/19 07:05 Hgb Hct MCV MCH RDW [place] % (Auto) Chloride BUN Creatinine Glucose POC Glucose 314 H Hemoglobin A1c Troponin T NT-Pro-B Natriuret Pep Total Protein Albumin HDL Cholesterol Assessment and Plan [facility] Date of Service: 04/14/2019 07:51:38 Impression: RO Acute Ischemic Stroke Comments: 63 year old male with altered mental status. Concern for possible stroke given acute change vs worsening of a metabolic encephalopathy. Mechanism of Stroke: Not Clear Metrics: Last Known Well: 04/14/2019 03:00:00 [employer] Notification Time: 04/14/2019 07:50:31 Stamp Time: 04/14/2019 07:51:38 Time First Login Attempt: 04/14/2019 07:53:00 Video Start Time: 04/14/2019 07:53:00 Symptoms: Altered mental status NIHSS Start Assessment Time: 04/14/2019 07:56:38 Patient is not a candidate for tPA. Patient was not deemed candidate for tPA thrombolytics because of Last Well Known Above 4.5 Hours. Video End Time: 04/14/2019 08:05:28 CT head showed no acute hemorrhage or acute core infarct. Advanced imaging was not obtained as the presentation was not suggestive of Large Vessel Occlusive Disease. Our recommendations are outlined below. Recommendations: Activate Stroke Protocol Admission/Order Set Stroke/Telemetry Floor Neuro Checks Bedside Swallow Eval DVT Prophylaxis IV Fluids, Normal Saline Head of Bed Below 30 Degrees Euglycemia and Avoid Hyperthermia (PRN Acetaminophen) Antiplatelet Therapy Recommended Recommended Scan: MRI Head Without Contrast MRA Head and Neck Without Contrast When Available - Stroke Protocol Echocardiogram - Transthoracic Echocardiogram Lipid Panel to Be Obtained, if Not Done in the Last Three Months Therapies: Physical Therapy, Occupational Therapy, Speech Therapy Assessment When A pplicable Dysphaghia Screen: Swallow Evaluation, Bedside NPO Until Swallow Evaluation DVT prophylaxis: Choice of Primary Team Disposition: Follow up with Teleneurology Follow up Sign Out: Discussed with Rapid Response Team History of Present Illness: Patient is a 63 year old Male. Inpatient stroke alert was called for symptoms of Altered mental status 63 year old male who is admitted to the hospital because of lower extremity swelling and hypertension. He was last seen normal at 3am and was awake and alert and oriented. Then around 7am when staff checked on him he was not in bed. They found him in the bathroom with stool all over and confused. Patient was awake and alert but unable to answer any questions. All his responses were garbled. There was no obvious focal weakness on exam. CT head showed no acute hemorrhage or acute core infarct. Examination: BP(134/74), Blood Glucose(314) 1A: Level of Consciousness - Alert; keenly responsive + 0 1B: Ask Month and Age - Aphasic + 2 1C: Blink Eyes & Squeeze Hands - Performs 0 Tasks + 2 2: Test Horizontal Extraocular Movements - Normal + 0 3: Test Visual Cardona - No Visual Loss + 0 4: Test Facial Palsy (Use Grimace if Obtunded) - Normal symmetry + 0 5A: Test Left Arm Motor Drift - No Drift for 10 Seconds + 0 5B: Test Right Arm Motor Drift - No Drift for 10 Seconds + 0 6A: Test Left Leg Motor Drift - Drift, hits bed + 2 6B: Test Right Leg Motor Drift - Drift, hits bed + 2 7: Test Limb Ataxia (FNF/Heel-García) - No Ataxia + 0 8: Test Sensation - Normal; No sensory loss + 0 9: Test Language/Aphasia - Severe aphasia +2 10: Test Dysarthria - Mute/Anarthric + 2 11: Test Extinction/Inattention - No abnormality + 0 NIHSS Score: 12 Patient was informed the Neurology Consult would happen via TeleHealth consult b y way of interactive audio and video telecommunications and consented to receiving care in this manner. Due to the immediate potential for life-threatening deterioration due to underlying acute neurologic illness, I spent 35 minutes providing critical care. This time includes time for face to face visit via telemedicine, review of medical records, imaging studies and discussion of findings with providers, the patient and/or family. Dr Ebony Rios [facility] Case [id number]
[2019-04-14] MEDS ORDERED: SODIUM CHLORIDE 0.9% 500 ML 500 ML IV ONE (09:00)
[2019-04-14] MEDS ORDERED: ASPIRIN 325 MG TAB PO SCH (10:00)
[2019-04-14] MEDS: NIFEdipine XL 90 MG TAB PO SCH (11:00)
[2019-04-14] MEDS: CLOPIDOGREL 75 MG TAB PO SCH (11:00)
[2019-04-14] MEDS: LOSARTAN 50 MG TAB PO SCH (11:00)
[2019-04-14] MEDS: METOPROLOL TARTRATE 50 MG TAB PO SCH ×2 (11:00→22:43)
[2019-04-14] MEDS: FAMOTIDINE 20 MG TAB PO SCH (11:00)
[2019-04-14] MEDS: INSULIN GLARGINE 100 UNITS/ML SUB-Q SCH ×2 (11:30→23:09)
--- NOTE | 2019-04-14 11:38 | Progress Note ---
Assessment and Plan Assessment and plan: Aphasia, r/o acute stroke -on stroke protocol -CT head aneg -MRI head, MRA head/neck, echo pending -Neurology consulted LUIS, probably vasomotor nephropathy -On IVF, will monitor cr level -Renal US neg for hydronephrosis -nephrology consulted Hypertensive urgency -BP improved -on PRN IV hydralazine Elevated troponin -probably demand ischemia due to acute kidney injury -troponin levels trended down -echo pending Diabetes type 2 with hyperglycemia -Insulin regimen adjusted, will monitor BG -A1c: 10.1 AOCD -H/H stable HLD -cont statin DVT Prophylaxis -SCDs while patient in bed -Lovenox Disposition: For discharge when medically stable Time spent: 40 mins History Interval history: I was notified by the patient's nurse that early this morning the patient became nonverbal and was unable to follow commands. Hospitalist Physical - Constitutional Vitals: Temp Pulse Resp BP Pulse Ox 97.6 F 67 16 132/62 97 04/14/19 04:33 04/14/19 04:33 04/14/19 04:33 04/14/19 04:33 04/14/19 04:33 General appearance: Present: no acute distress - EENT Eyes: Present: PERRL, EOM intact ENT: hearing intact, clear oral mucosa - Neck Neck: Present: supple - Respiratory Respiratory effort: normal Respiratory: bilateral: CTA - Cardiovascular Rhythm: regular Heart Sounds: Present: S1 & S2 - Extremities Extremities: No edema - Abdominal General gastrointestinal: soft, non-tender, normal bowel sounds - Integumentary Integumentary: Present: warm, dry - Psychiatric Psychiatric: other (unable to assess due to AMS) - Neurologic Neurologic: moves all extremities (with generalized weakness), other (unable to verbalized and follow commands) Results - Labs CBC & Chem 7: 04/14/19 04:09 04/14/19 04:09 Labs: Laboratory Last Values WBC 6.5 K/mm3 (4.5-11.0) 04/14/19 04:09 RBC 4.40 M/mm3 (3.65-5.03) 04/14/19 04:09 Hgb 11.1 gm/dl (11.8-15.2) L 04/14/19 04:09 Hct 32.9 % (35.5-45.6) L 04/14/19 04:09 MCV 75 fl (84-94) L 04/14/19 04:09 MCH 25 pg (28-32) L 04/14/19 04:09 MCHC 34 % (32-34) 04/14/19 04:09 RDW 16.0 % (13.2-15.2) H 04/14/19 04:09 Plt Count 200 K/mm3 (140-440) 04/14/19 04:09 Lymph % (Auto) 23.7 % (13.4-35.0) 04/14/19 04:09 [place] % (Auto) 9.0 % (0.0-7.3) H 04/14/19 04:09 Eos % (Auto) 1.3 % (0.0-4.3) 04/14/19 04:09 Baso % (Auto) 0.5 % (0.0-1.8) 04/14/19 04:09 Lymph # 1.5 K/mm3 (1.2-5.4) 04/14/19 04:09 [place] # 0.6 K/mm3 (0.0-0.8) 04/14/19 04:09 Eos # 0.1 K/mm3 (0.0-0.4) 04/14/19 04:09 Baso # 0.0 K/mm3 (0.0-0.1) 04/14/19 04:09 Seg Neutrophils % 65.5 % (40.0-70.0) 04/14/19 04:09 Seg Neutrophils # 4.2 K/mm3 (1.8-7.7) 04/14/19 04:09 PT 13.5 Sec. (12.2-14.9) 04/13/19 12:00 INR 1.04 (0.87-1.13) 04/13/19 12:00 APTT 26.6 Sec. (24.2-36.6) 04/13/19 12:00 Sodium 143 mmol/L (137-145) 04/14/19 04:09 Potassium 4.0 mmol/L (3.6-5.0) 04/14/19 04:09 Chloride 109.7 mmol/L (98-107) H 04/14/19 04:09 Carbon Dioxide 24 mmol/L (22-30) 04/14/19 04:09 Anion Gap 13 mmol/L 04/14/19 04:09 BUN 33 mg/dL (9-20) H 04/14/19 04:09 Creatinine 2.5 mg/dL (0.8-1.5) H 04/14/19 04:09 Estimated GFR 32 ml/min 04/14/19 04:09 BUN/Creatinine Ratio 13 % 04/14/19 04:09 Glucose 269 mg/dL (75-100) H 04/14/19 04:09 POC Glucose 320 (70-105) H 04/14/19 08:17 Hemoglobin A1c 10.1 % (4-6) H 04/13/19 19:07 Calcium 8.7 mg/dL (8.4-10.2) 04/14/19 04:09 Total Bilirubin 0.30 mg/dL (0.1-1.2) 04/14/19 04:09 AST 11 units/L (5-40) 04/14/19 04:09 ALT 7 units/L (7-56) 04/14/19 04:09 Alkaline Phosphatase 88 units/L (35-129) 04/14/19 04:09 Troponin T 0.035 ng/mL (0.00-0.029) H 04/14/19 09:21 NT-Pro-B Natriuret Pep 1384 pg/mL (0-900) H 04/13/19 12:00 Total Protein 5.8 g/dL (6.3-8.2) L 04/14/19 04:09 Albumin 3.0 g/dL (3.9-5) L 04/14/19 04:09 Albumin/Globulin Ratio 1.1 % 04/14/19 04:09 Triglycerides 108 mg/dL (2-149) 04/13/19 12:00 Cholesterol 199 mg/dL (50-199) 04/13/19 12:00 LDL Cholesterol Direct 125 mg/dL (50-130) 04/13/19 12:00 HDL Cholesterol 65 mg/dL (40-59) H 04/13/19 12:00 Cholesterol/HDL Ratio 3.06 % 04/13/19 12:00 Active Medications - Current Medications Current Medications: Generic Name Dose Route Start Last Admin Trade Name Freq PRN Reason Stop Dose Admin Acetaminophen 650 mg 04/13/19 16:16 Tylenol PO Q4H PRN Pain MILD(1-3)/Fever >100.5/CUEVA Aspirin 81 mg 04/15/19 10:00 Baby Aspirin PO QDAY SOL Clopidogrel Bisulfate 75 mg 04/13/19 17:00 04/13/19 19:39 Plavix PO 75 mg QDAY SOL Administration Dextrose 0 ml 04/14/19 01:26 D50w (25gm) Syringe IV Q30MIN PRN Hypoglycemia Protocol Doxazosin Mesylate 2 mg 04/13/19 22:00 04/13/19 22:36 Cardura PO 2 mg QHS SOL Administration Famotidine 20 mg 04/13/19 22:00 04/13/19 22:39 Pepcid PO 20 mg DAILY SOL Administration Hydralazine HCl 10 mg 04/13/19 15:40 04/13/19 23:45 Apresoline IV 10 mg Q3HR PRN Administration Hypertension Hydromorphone HCl 0.5 mg 04/13/19 16:16 Dilaudid IV Q3H PRN Pain , Severe (7-10) Sodium Chloride 1,000 mls @ 100 mls/hr 04/14/19 02:00 Nacl 0.45% 1000 Ml IV DIRECT [facility] Insulin Glargine 10 units 04/14/19 10:00 Lantus SUB-Q BID [facility] Insulin Human Lispro 0 unit 04/14/19 07:30 Humalog SUB-Q ACHS [facility] Protocol Losartan Potassium 100 mg 04/13/19 17:00 04/13/19 19:39 Cozaar PO 100 mg QDAY [facility] Administration Metoprolol Tartrate 50 mg 04/13/19 22:00 04/13/19 22:36 Metoprolol PO 50 mg BID SOL Administration Nifedipine 90 mg 04/13/19 17:00 04/13/19 19:39 Procardia Xl PO 90 mg QDAY [facility] Administration Ondansetron HCl 4 mg 04/13/19 16:16 Zofran IV Q8H PRN Nausea And Vomiting Oxycodone/Acetaminophen 1 tab 04/13/19 16:13 Percocet 5/325 PO Q6H PRN Pain, Moderate (4-6) Pravastatin Sodium 80 mg 04/13/19 22:00 04/13/19 22:36 Pravachol PO 80 mg QHS SOL Administration Sodium Chloride 10 ml 04/13/19 22:00 04/13/19 22:37 Sodium Chloride Flush Syringe 10 Ml IV 10 ml BID SOL Administration Sodium Chloride 10 ml 04/14/19 09:00 Sodium Chloride Flush Syringe 10 Ml IV PRN PRN LINE FLUSH
[2019-04-14] MEDS ORDERED: FLU VACC QUAD 2019-20 (3 YR UP)/PF 60 MCG/0.5 ML SYRINGE IM ONE (12:00)
--- NOTE | 2019-04-14 14:48 | Consultation ---
History of Present Illness Consult date: 04/14/19 Reason for Consult: confusion? aphasia History of present illness: Pt. is 63 ys old male admitted yesterday afternoon due to legs swelling and un steady gait as per son , early this am when nurses camre to check on him they found him in the bathroom locked him self in seems to be confused and with urinary and stool on the floor ??? his blood pressure was up to 201/62 I called his son who lives with him according to him dad is getting more con fused over the last months he mumbles and is slightly unsteady with slow walking and tendency to fall actually he fell several times at home with no LOCs , he takes his medications by him self In hospital Ct brain is unremarkable Bun/Cr. 33/2.5 he is with hx of HTN,[place],legs swelling, s/p PICA X 2 stent , Hx of DM A1C #10.1 LDL#pending Troponin#0.035 Past History Past Medical History: acute [place], CAD, diabetes, hypertension Past Surgical History: PTCA (w/ 2 stents) Social history: smoking (quit 6 years ago), full code Family history: CAD, diabetes Medications and Allergies Allergies Allergy/AdvReac Type Severity Reaction Status Date / Time No Known Allergies Allergy Verified 07/11/13 22:02 Home Medications Medication Instructions Recorded Confirmed Last Taken Type Amlodipine Besylate [Norvasc] 10 mg PO QPM 07/12/13 04/13/19 07/11/13 19:30 History 10 mg Doxazosin [Cardura] 2 mg PO QHS 07/12/13 04/13/19 07/11/13 19:30 History 1 mg Losartan [Cozaar] 100 mg PO QDAY 07/12/13 04/13/19 07/10/13 History 50 mg Metoprolol [Lopressor TAB] 25 mg PO BID 07/12/13 04/13/19 07/11/13 19:30 History 25 mg Simvastatin 40 mg PO QHS 07/06/15 04/13/19 Unknown History Clopidogrel [Plavix] 75 mg PO QDAY 04/13/19 04/13/19 Unknown History NIFEdipine [Nifedipine ER] 90 mg PO QDAY 04/13/19 04/13/19 Unknown History Active Meds: Active Medications Acetaminophen (Tylenol) 650 mg PO Q4H PRN PRN Reason: Pain MILD(1-3)/Fever >100.5/CUEVA Aspirin (Baby Aspirin) 81 mg PO QDAY [facility] Clopidogrel Bisulfate (Plavix) 75 mg PO QDAY [facility] Last Admin: 04/13/19 19:39 Dose: 75 mg Documented by: Dextrose (D50w (25gm) Syringe) 0 ml IV Q30MIN PRN; Protocol PRN Reason: Hypoglycemia Doxazosin Mesylate (Cardura) 2 mg PO QHS [facility] Last Admin: 04/13/19 22:36 Dose: 2 mg Documented by: Famotidine (Pepcid) 20 mg PO DAILY [facility] Last Admin: 04/13/19 22:39 Dose: 20 mg Documented by: Hydralazine HCl (Apresoline) 10 mg IV Q3HR PRN PRN Reason: Hypertension Last Admin: 04/13/19 23:45 Dose: 10 mg Documented by: Hydromorphone HCl (Dilaudid) 0.5 mg IV Q3H PRN PRN Reason: Pain , Severe (7-10) Sodium Chloride (Nacl 0.45% 1000 Ml) 1,000 mls @ 100 mls/hr IV DIRECT [facility] Insulin Glargine (Lantus) 10 units SUB-Q BID [facility] Insulin Human Lispro (Humalog) 0 unit SUB-Q ACHS [facility]; Protocol Last Admin: 04/14/19 11:45 Dose: 8 unit Documented by: Losartan Potassium (Cozaar) 100 mg PO QDAY [facility] Last Admin: 04/13/19 19:39 Dose: 100 mg Documented by: Metoprolol Tartrate (Metoprolol) 50 mg PO BID [facility] Last Admin: 04/13/19 22:36 Dose: 50 mg Documented by: Nifedipine (Procardia Xl) 90 mg PO QDAY [facility] Last Admin: 04/13/19 19:39 Dose: 90 mg Documented by: Ondansetron HCl (Zofran) 4 mg IV Q8H PRN PRN Reason: Nausea And Vomiting Oxycodone/Acetaminophen (Percocet 5/325) 1 tab PO Q6H PRN PRN Reason: Pain, Moderate (4-6) Pravastatin Sodium (Pravachol) 80 mg PO QHS [facility] Last Admin: 04/13/19 22:36 Dose: 80 mg Documented by: Sodium Chloride (Sodium Chloride Flush Syringe 10 Ml) 10 ml IV BID [facility] Last Admin: 04/13/19 22:37 Dose: 10 ml Documented by: Sodium Chloride (Sodium Chloride Flush Syringe 10 Ml) 10 ml IV PRN PRN PRN Reason: LINE FLUSH Review of Systems ROS unobtainable: due to endotracheal tube, due to mental status Physical Examination - Vital Signs Vital Signs: Vital Signs Temp Pulse Resp BP Pulse Ox 97.6 F 86 18 215/106 100 04/13/19 11:51 04/13/19 11:51 04/13/19 11:51 04/13/19 11:51 04/13/19 11:51 - Constitutional General appearance: uncomfortable - Respiratory Respiratory: Present: chest non-tender, lungs clear, normal breath sounds, rhonchi - Cardiovascular Cardiovascular: Present: regular rate, normal S1, normal S2 Extremities: Present: non-pitting edema - Gastrointestinal Gastrointestinal: Present: normoactive bowel sounds - Integumentary Integumentary: Present: normal - Neurologic Cranial nerve examination: PERRL, EOMI Speech examination: other (mumble he seems to understand able to answear simple questions only) Sensorimotor examination: intact Detailed motor examination: other (move all limbs with increse rigidity more in lower ext. with brisk reflexes in Knees ) Reflex and gait examination: intact Reflexes: 3+: ankle, knee - Psychiatric Psychiatric: Present: agitated - Level of Consciousness 1a. Level of Consciousness: alert/keenly responsive - LOC Questions 1b. LOC Questions: aphasic - LOC Command 1c. LOC Commands: performs tasks correctly - Best Gaze 2. Best Gaze: normal - Visual 3. Visual: no visual loss - Facial Palsy 4. Facial Palsy: normal symmetrical movement - Motor Arm 5a. Motor Arm Left: no drift - Motor Leg 6a. Motor Leg Left: no drift 6b. Motor Leg Right: no drift - Limb Ataxia 7. Limb Ataxia: absent - Sensory 8. Sensory: normal - Best Language 9. Best Language: no aphasia - Dysarthria 10. Dysarthria: normal - Extinction and Inattention 11. Extinction/Inattention: no abnormality Results - Laboratory Findings CBC and BMP: 04/14/19 04:09 04/14/19 04:09 Abnormal Lab Findings: Abnormal Labs 04/13/19 04/13/19 04/13/19 12:00 12:00 19:07 Hgb 11.6 L Hct 35.1 L MCV 75 L MCH 25 L RDW 16.2 H [place] % (Auto) Chloride BUN 36 H Creatinine 2.7 H Glucose 292 H POC Glucose Hemoglobin A1c Troponin T 0.039 H 0.042 H NT-Pro-B Natriuret Pep 1384 H Total Protein Albumin 3.5 L HDL Cholesterol 65 H 04/13/19 04/13/19 04/13/19 19:07 19:07 22:36 Hgb Hct MCV MCH RDW [place] % (Auto) Chloride BUN Creatinine Glucose POC Glucose Hemoglobin A1c 10.1 H Troponin T 0.044 H 0.040 H NT-Pro-B Natriuret Pep Total Protein Albumin HDL Cholesterol 04/14/19 04/14/19 04/14/19 01:20 04:09 04:09 Hgb 11.1 L Hct 32.9 L MCV 75 L MCH 25 L RDW 16.0 H [place] % (Auto) 9.0 H Chloride 109.7 H BUN 33 H Creatinine 2.5 H Glucose 269 H POC Glucose 238 H Hemoglobin A1c Troponin T NT-Pro-B Natriuret Pep Total Protein 5.8 L Albumin 3.0 L HDL Cholesterol 04/14/19 04/14/19 04/14/19 07:05 08:17 09:21 Hgb Hct MCV MCH RDW [place] % (Auto) Chloride BUN Creatinine Glucose POC Glucose 314 H 320 H Hemoglobin A1c Troponin T 0.035 H NT-Pro-B Natriuret Pep Total Protein Albumin HDL Cholesterol 04/14/19 11:48 Hgb Hct MCV MCH RDW [place] % (Auto) Chloride BUN Creatinine Glucose POC Glucose 362 H Hemoglobin A1c Troponin T NT-Pro-B Natriuret Pep Total Protein Albumin HDL Cholesterol Assessment and Plan Impression 1- This is 63 ys old male admitted for evaluation of legs swelling and unsteady gait and difficulty walking noted by son according to family pt. is mumbling and unsteady with increase fall over the last few months with at time difficulty in bowel and bladder control , he is with shuffling/ slow gait and or memory difficulty ?? with the possibilty of underlying dementia ? NPH(normal pressure hydrocephalus ) can not be excluded 2- Renal insuff. bun/cr. 33/2.5 3- Hx of [place],CVD,HTN,DM PICAX 2 stent 4- poorly controlled HTN , and DM 5- Brisk reflexes on exam with the possibility od underlying cervical mylopathy can not be excluded, or b12 def. 6- elevated cardiac enzymes 7- Confusion possibly multifactorial ? dehydration ? infection ? toxi metabolic etiology. PLAN 1- Iv hydration cautiously with follow up on cardiac enzymes and BUN/Cr. 2- Check B12 and folate 3- [id number] mg Iv daily X 3 days 4- Need MRI brain and Cervical spine mostly will need sedation for the procedure 5- Moniter Bp. 6- Speech /Pt therapy evaluation 7- DVT precaution will follow along
[2019-04-14 15:03] LABS: Hepatitis B Surface Antigen Non-Reactive (Negative); Hepatitis C Virus Antibody Non-Reactive (NonReactive)
[2019-04-14] MEDS ORDERED: LORazepam 2 MG/ML VIAL IV SCH (16:41)
--- NOTE | 2019-04-14 17:26 | Consultation ---
History of Present Illness - Reason for Consult Consult date: 04/14/19 acute renal failure Requesting physician: MELISSA PALM - History of Present Illness This is a 63 yo M with past medical history of hypertension, T2DM, MD, who presents to [facility] with c/o b/l leg edema causing pain upon walking along with uncontrolled HTN. In ER patient was found to have altered mental status, code stroke was called. Neurology was consulted, initial CT head showed no acute findings, awaiting MRI/A. Labs showed elevated BUN/Cr at 36/2.7mg/dl for which renal consult is requested. Renal US showed no acute sonographic abnormality of b/l kidneys. Previous Cr was 1.2-1.4mg/dl in 2017. Past History Past Medical History: acute MD, CAD, diabetes, hypertension Past Surgical History: PTCA (w/ 2 stents) Social history: smoking (quit 6 years ago), full code Family history: CAD, diabetes Medications and Allergies Allergies Allergy/AdvReac Type Severity Reaction Status Date / Time No Known Allergies Allergy Verified 07/11/13 22:02 Home Medications Medication Instructions Recorded Confirmed Last Taken Type Amlodipine Besylate [Norvasc] 10 mg PO QPM 07/12/13 04/13/19 07/11/13 19:30 History 10 mg Doxazosin [Cardura] 2 mg PO QHS 07/12/13 04/13/19 07/11/13 19:30 History 1 mg Losartan [Cozaar] 100 mg PO QDAY 07/12/13 04/13/19 07/10/13 History 50 mg Metoprolol [Lopressor TAB] 25 mg PO BID 07/12/13 04/13/19 07/11/13 19:30 History 25 mg Simvastatin 40 mg PO QHS 07/06/15 04/13/19 Unknown History Clopidogrel [Plavix] 75 mg PO QDAY 04/13/19 04/13/19 Unknown History NIFEdipine [Nifedipine ER] 90 mg PO QDAY 04/13/19 04/13/19 Unknown History Active Meds: Active Medications Acetaminophen (Tylenol) 650 mg PO Q4H PRN PRN Reason: Pain MILD(1-3)/Fever >100.5/CUEVA Aspirin (Baby Aspirin) 81 mg PO QDAY [facility] Clopidogrel Bisulfate (Plavix) 75 mg PO QDAY [facility] Last Admin: 04/13/19 19:39 Dose: 75 mg Documented by: Dextrose (D50w (25gm) Syringe) 0 ml IV Q30MIN PRN; Protocol PRN Reason: Hypoglycemia Doxazosin Mesylate (Cardura) 2 mg PO QHS [facility] Last Admin: 04/13/19 22:36 Dose: 2 mg Documented by: Famotidine (Pepcid) 20 mg PO DAILY [facility] Last Admin: 04/13/19 22:39 Dose: 20 mg Documented by: Hydralazine HCl (Apresoline) 10 mg IV Q3HR PRN PRN Reason: Hypertension Last Admin: 04/13/19 23:45 Dose: 10 mg Documented by: Hydromorphone HCl (Dilaudid) 0.5 mg IV Q3H PRN PRN Reason: Pain , Severe (7-10) Sodium Chloride (Nacl 0.45% 1000 Ml) 1,000 mls @ 100 mls/hr IV DIRECT [facility] Thiamine HCl 100 mg/ Sodium (Chloride) 51 mls @ 100 mls/hr IV QDAY [facility] Stop: 04/16/19 23:59 Insulin Glargine (Lantus) 10 units SUB-Q BID [facility] Insulin Human Lispro (Humalog) 0 unit SUB-Q ACHS [facility]; Protocol Last Admin: 04/14/19 11:45 Dose: 8 unit Documented by: Lorazepam (Ativan) 1 mg IV [employer] [facility] Stop: 04/15/19 16:40 Losartan Potassium (Cozaar) 100 mg PO QDAY [facility] Last Admin: 04/13/19 19:39 Dose: 100 mg Documented by: Metoprolol Tartrate (Metoprolol) 50 mg PO BID [facility] Last Admin: 04/13/19 22:36 Dose: 50 mg Documented by: Nifedipine (Procardia Xl) 90 mg PO QDAY [facility] Last Admin: 04/13/19 19:39 Dose: 90 mg Documented by: Ondansetron HCl (Zofran) 4 mg IV Q8H PRN PRN Reason: Nausea And Vomiting Oxycodone/Acetaminophen (Percocet 5/325) 1 tab PO Q6H PRN PRN Reason: Pain, Moderate (4-6) Pravastatin Sodium (Pravachol) 80 mg PO QHS [facility] Last Admin: 04/13/19 22:36 Dose: 80 mg Documented by: Sodium Chloride (Sodium Chloride Flush Syringe 10 Ml) 10 ml IV BID [facility] Last Admin: 04/13/19 22:37 Dose: 10 ml Documented by: Sodium Chloride (Sodium Chloride Flush Syringe 10 Ml) 10 ml IV PRN PRN PRN Reason: LINE FLUSH Review of Systems ROS unobtainable: due to mental status Exam - Vital Signs Vital signs: Vital Signs Temp Pulse Resp BP Pulse Ox 97.6 F 86 18 215/106 100 04/13/19 11:51 04/13/19 11:51 04/13/19 11:51 04/13/19 11:51 04/13/19 11:51 - General Appearance General appearance: well-developed, well-nourished, appears stated age EENT: ATNC, PERRL, mucous membranes moist Neck: Present: neck supple Respiratory: Clear to Ascultation Heart: regular, S1S2 Gastrointestinal: Present: normoactive bowel sounds Integumentary: no rash, other (no edema ) Neurologic: confused, disoriented, aphasia Results - Lab Results 04/14/19 04:09 04/14/19 04:09 Most recent lab results Calcium 8.7 mg/dL (8.4-10.2) 04/14/19 04:09 Assessment and Plan - Patient Problems (1) Acute renal failure Current Visit: Yes Status: Acute Qualifiers: Acute renal failure type: unspecified Qualified Code(s): N17.9 - Acute kidney failure, unspecified Plan to address problem: LUIS is likely secondary to malignant hypertension , superimposed on CKD/hypertensive nephrosclerosis. check UA, urine lytes, urine protein/cr ratio. Renal US reviewed. BP control with IV hydralazine to target BP around 160s/80s. Avoid nephrotoxins, NSAIDS, IV contrast. will monitor lytes/renal parameters and make further recommendations. (2) Hypertensive urgency Current Visit: Yes Status: Acute Plan to address problem: BP control with IV hydralazine to target BP 160/80s within 24hrs (3) Hypertensive chronic kidney disease with stage 1 through stage 4 chronic kidney disease, or unspecified chronic kidney disease Current Visit: Yes Status: Acute Plan to address problem: (4) Type 2 diabetes mellitus with hyperglycemia Current Visit: Yes Status: Acute Plan to address problem: Diabetes management as per primary attending (5) Altered mental status Current Visit: Yes Status: Acute Plan to address problem: follow neurology recommendations
[2019-04-14] MEDS: SODIUM CHLORIDE 0.45% 1000 ML 1,000 ML IV SCH (18:55)
[2019-04-14] MEDS: THIAMINE 100 MG in SODIUM CHLORIDE 0.9% 50 ML IV SCH (18:55)
[2019-04-14] MEDS ORDERED: INSULIN GLARGINE 100 UNITS/ML SUB-Q SCH (22:00)
[2019-04-14] MEDS: PRAVASTATIN 80 MG TAB PO SCH (22:37)
[2019-04-14] MEDS: DOXAZOSIN 1 MG TAB PO SCH (22:38)
[2019-04-15 02:33] LABS: Creatinine,Urine 94.7 mg/dL (0.1-20.0)
[2019-04-15 05:13] LABS: Calcium 8.9 mg/dL (8.4-10.2)
[2019-04-15] MEDS: SODIUM CHLORIDE 0.45% 1000 ML 1,000 ML IV SCH (05:27)
[2019-04-15] MEDS: hydrALAZINE 20 MG/1 ML INJ IV PRN ×2 (08:07→16:23)
[2019-04-15] MEDS: INSULIN LISPRO 100 UNIT/ML SUB-Q SCH ×4 (08:08→21:55)
[2019-04-15] MEDS ORDERED: SODIUM CHLORIDE 0.45% 500 ML IV SCH (09:00)
[2019-04-15] MEDS ORDERED: ASPIRIN 325 MG TAB PO SCH (10:00)
--- NOTE | 2019-04-15 10:16 | Progress Note ---
Assessment and Plan Impression 1- This is 63 ys old male admitted for evaluation of legs swelling and unsteady gait and difficulty walking noted by son according to family pt. is mumbling and unsteady with increase fall over the last few months with at time difficulty in bowel and bladder control , he is with shuffling/ slow gait and or memory difficulty ?? with the possibilty of underlying dementia ? NPH(normal pressure hydrocephalus ) can not be excluded 2- Renal insuff. bun/cr. 33/2.5 today 36/2.6 3- Hx of MN,CVD,HTN,DM PICAX 2 stent 4- poorly controlled HTN , and DM 5- Brisk reflexes on exam with the possibility od underlying cervical mylopathy can not be excluded, or b12 def. 6- elevated cardiac enzymes 7- Confusion possibly multifactorial ? dehydration ? infection ? toxi metabolic etiology. PLAN 1- Iv hydration cautiously with follow up on cardiac enzymes and BUN/Cr. 2- Check B12 and folate 3- [id number] mg Iv daily X 3 days 4- Need MRI brain and Cervical spine mostly will need sedation for the procedure 5- Monitor Bp. 6- Speech /Pt therapy evaluation 7- DVT precaution will follow along Subjective Date of service: 04/15/19 Principal diagnosis: confusion and shuffling gait X 2-3 months ? Objective - Vital Sign Vital Signs - 12hr 04/14/19 04/14/19 04/14/19 22:38 22:43 23:00 Temperature Pulse Rate 111 H 111 H 114 H Pulse Rate [ Apical] Respiratory 15 Rate Blood Pressure 160/85 160/85 160/85 O2 Sat by Pulse 99 Oximetry 04/14/19 04/14/19 04/14/19 23:10 23:20 23:30 Temperature Pulse Rate 108 H 105 H 104 H Pulse Rate [ Apical] Respiratory 16 18 14 Rate Blood Pressure 209/170 209/170 209/170 O2 Sat by Pulse 99 100 100 Oximetry 04/14/19 04/14/19 04/15/19 23:40 23:50 00:00 Temperature 100.0 F H Pulse Rate 96 H 94 H 90 Pulse Rate [ 84 Apical] Respiratory 19 15 21 Rate Blood Pressure 209/170 179/79 179/79 O2 Sat by Pulse 100 100 100 Oximetry 04/15/19 04/15/19 04/15/19 00:10 00:20 00:30 Temperature Pulse Rate 84 80 77 Pulse Rate [ Apical] Respiratory 21 21 21 Rate Blood Pressure 209/170 178/78 178/78 O2 Sat by Pulse 100 100 100 Oximetry 04/15/19 04/15/19 04/15/19 00:40 00:50 01:00 Temperature Pulse Rate 74 75 74 Pulse Rate [ Apical] Respiratory 20 23 22 Rate Blood Pressure 178/78 178/78 161/76 O2 Sat by Pulse 100 100 100 Oximetry 04/15/19 04/15/19 04/15/19 01:10 01:20 01:30 Temperature Pulse Rate 74 74 73 Pulse Rate [ Apical] Respiratory 21 24 22 Rate Blood Pressure 161/76 161/76 161/76 O2 Sat by Pulse 100 100 100 Oximetry 04/15/19 04/15/19 04/15/19 01:40 01:50 02:00 Temperature Pulse Rate 73 73 72 Pulse Rate [ Apical] Respiratory 18 18 19 Rate Blood Pressure 161/76 161/76 165/74 O2 Sat by Pulse 100 100 98 Oximetry 04/15/19 04/15/19 04/15/19 02:10 02:20 02:30 Temperature Pulse Rate 73 73 73 Pulse Rate [ Apical] Respiratory 25 H 21 18 Rate Blood Pressure 165/74 165/74 161/76 O2 Sat by Pulse 100 98 99 Oximetry 04/15/19 04/15/19 04/15/19 02:40 02:50 03:00 Temperature Pulse Rate 72 75 76 Pulse Rate [ Apical] Respiratory 24 17 22 Rate Blood Pressure 161/76 161/76 161/76 O2 Sat by Pulse 92 86 Oximetry 04/15/19 04/15/19 04/15/19 03:10 03:20 03:30 Temperature Pulse Rate 77 77 79 Pulse Rate [ Apical] Respiratory 22 18 12 Rate Blood Pressure 156/69 156/69 156/69 O2 Sat by Pulse 69 L 98 97 Oximetry 04/15/19 04/15/19 04/15/19 03:40 03:50 04:00 Temperature 99.0 F 99.0 F Pulse Rate 77 80 76 Pulse Rate [ 75 Apical] Respiratory 15 16 18 Rate Blood Pressure 156/69 156/69 156/69 O2 Sat by Pulse 98 97 98 Oximetry 04/15/19 04/15/19 04/15/19 04:10 04:20 04:30 Temperature Pulse Rate 74 82 87 Pulse Rate [ Apical] Respiratory 20 19 29 H Rate Blood Pressure 167/72 167/72 167/72 O2 Sat by Pulse 97 98 100 Oximetry 04/15/19 04/15/19 04/15/19 04:40 04:50 05:00 Temperature Pulse Rate 81 73 76 Pulse Rate [ Apical] Respiratory 18 17 18 Rate Blood Pressure 167/72 167/72 167/72 O2 Sat by Pulse 98 99 98 Oximetry 04/15/19 04/15/19 04/15/19 05:10 05:20 05:30 Temperature Pulse Rate 75 75 77 Pulse Rate [ Apical] Respiratory 16 17 17 Rate Blood Pressure 167/72 167/72 167/72 O2 Sat by Pulse 99 98 98 Oximetry 04/15/19 04/15/19 04/15/19 05:40 05:50 06:00 Temperature Pulse Rate 77 76 77 Pulse Rate [ Apical] Respiratory 17 17 16 Rate Blood Pressure 167/72 167/72 167/72 O2 Sat by Pulse 98 98 98 Oximetry 04/15/19 04/15/19 04/15/19 06:10 06:20 06:30 Temperature Pulse Rate 76 76 76 Pulse Rate [ Apical] Respiratory 17 17 18 Rate Blood Pressure 148/72 148/72 148/72 O2 Sat by Pulse 98 98 99 Oximetry 04/15/19 04/15/19 04/15/19 06:40 06:50 07:00 Temperature Pulse Rate 77 77 77 Pulse Rate [ Apical] Respiratory 17 18 18 Rate Blood Pressure 148/72 148/72 171/80 O2 Sat by Pulse 98 98 96 Oximetry 04/15/19 04/15/19 07:10 08:07 Temperature Pulse Rate 78 74 Pulse Rate [ Apical] Respiratory 18 Rate Blood Pressure 148/72 174/76 O2 Sat by Pulse 98 Oximetry - General Apperance Constitutional: other (asleep was given ativan this am for MRI ) - EENT EENT: PERRL - Respiratory Respiratory: chest non-tender, lungs clear, rhonchi - Cardiovascular Cardiovascular: regular rate, normal S1, normal S2 Extremities: no peripheral edema bilat - Gastrointestinal Gastrointestinal: normoactive bowel sounds - Integumentary Integumentary: normal - Neurologic Cranial nerve examination: PERRL, EOMI, other (pupils constricted reactive to light , possible left facial droop slight ) Detailed motor examination: other (move limbs , reflexes are brisk L>R , no clonus , planter is down.) - Laboratory Findings CBC and BMP: 04/14/19 04:09 04/15/19 04:03 Abnormal Lab Findings: Abnormal Labs 04/13/19 04/13/19 04/13/19 12:00 12:00 19:07 Hgb 11.6 L Hct 35.1 L MCV 75 L MCH 25 L RDW 16.2 H [place] % (Auto) Sodium Chloride Carbon Dioxide BUN 36 H Creatinine 2.7 H Glucose 292 H POC Glucose Hemoglobin A1c Troponin T 0.039 H 0.042 H NT-Pro-B Natriuret Pep 1384 H Total Protein Albumin 3.5 L HDL Cholesterol 65 H Urine Creatinine Urine Total Protein 04/13/19 04/13/19 04/13/19 19:07 19:07 22:36 Hgb Hct MCV MCH RDW [place] % (Auto) Sodium Chloride Carbon Dioxide BUN Creatinine Glucose POC Glucose Hemoglobin A1c 10.1 H Troponin T 0.044 H 0.040 H NT-Pro-B Natriuret Pep Total Protein Albumin HDL Cholesterol Urine Creatinine Urine Total Protein 04/14/19 04/14/19 04/14/19 01:20 04:09 04:09 Hgb 11.1 L Hct 32.9 L MCV 75 L MCH 25 L RDW 16.0 H [place] % (Auto) 9.0 H Sodium Chloride 109.7 H Carbon Dioxide BUN 33 H Creatinine 2.5 H Glucose 269 H POC Glucose 238 H Hemoglobin A1c Troponin T NT-Pro-B Natriuret Pep Total Protein 5.8 L Albumin 3.0 L HDL Cholesterol Urine Creatinine Urine Total Protein 04/14/19 04/14/19 04/14/19 07:05 08:17 09:21 Hgb Hct MCV MCH RDW [place] % (Auto) Sodium Chloride Carbon Dioxide BUN Creatinine Glucose POC Glucose 314 H 320 H Hemoglobin A1c Troponin T 0.035 H NT-Pro-B Natriuret Pep Total Protein Albumin HDL Cholesterol Urine Creatinine Urine Total Protein 04/14/19 04/14/19 04/14/19 11:48 17:13 18:41 Hgb Hct MCV MCH RDW [place] % (Auto) Sodium Chloride Carbon Dioxide BUN Creatinine Glucose POC Glucose 362 H 182 H 157 H Hemoglobin A1c Troponin T NT-Pro-B Natriuret Pep Total Protein Albumin HDL Cholesterol Urine Creatinine Urine Total Protein 04/14/19 04/15/19 04/15/19 22:46 01:40 04:03 Hgb Hct MCV MCH RDW [place] % (Auto) Sodium 146 H Chloride 108.8 H Carbon Dioxide 20 L BUN 36 H Creatinine 2.6 H Glucose 184 H POC Glucose 147 H Hemoglobin A1c Troponin T NT-Pro-B Natriuret Pep Total Protein Albumin HDL Cholesterol Urine Creatinine 94.7 H Urine Total Protein 374 H 04/15/19 08:13 Hgb Hct MCV MCH RDW [place] % (Auto) Sodium Chloride Carbon Dioxide BUN Creatinine Glucose POC Glucose 148 H Hemoglobin A1c Troponin T NT-Pro-B Natriuret Pep Total Protein Albumin HDL Cholesterol Urine Creatinine Urine Total Protein
[2019-04-15] MEDS: INSULIN GLARGINE 100 UNITS/ML SUB-Q SCH ×2 (10:43→21:55)
[2019-04-15] MEDS: ASPIRIN 81 MG TAB CHEW PO SCH (10:44)
[2019-04-15] MEDS: FAMOTIDINE 20 MG TAB PO SCH (10:45)
[2019-04-15] MEDS: LOSARTAN 50 MG TAB PO SCH (10:45)
[2019-04-15] MEDS: METOPROLOL TARTRATE 50 MG TAB PO SCH (10:45)
[2019-04-15] MEDS: NIFEdipine XL 90 MG TAB PO SCH (10:45)
[2019-04-15] MEDS: THIAMINE 100 MG in SODIUM CHLORIDE 0.9% 50 ML IV SCH (10:45)
[2019-04-15] MEDS: CLOPIDOGREL 75 MG TAB PO SCH (10:45)
--- NOTE | 2019-04-15 13:17 | Progress Note ---
Assessment and Plan - Patient Problems (1) Acute renal failure Current Visit: Yes Status: Acute Qualifiers: Acute renal failure type: unspecified Qualified Code(s): N17.9 - Acute kidney failure, unspecified Plan to address problem: LUIS is likely secondary to malignant hypertension , superimposed on CKD/hypertensive nephrosclerosis. check UA, urine lytes; urine protein/cr ratio was measured to b 3.9g/g raising suspicion for chronic diabetic nephropathy . Renal US reviewed. BP control with IV hydralazine to target normotension. Avoid nephrotoxins, NSAIDS, IV contrast. will monitor lytes/renal parameters and make further recommendations. (2) Hypertensive urgency Current Visit: Yes Status: Acute Plan to address problem: BP control with IV hydralazine to target normotension (3) Hypertensive chronic kidney disease with stage 1 through stage 4 chronic kidney disease, or unspecified chronic kidney disease Current Visit: Yes Status: Acute Plan to address problem: (4) Type 2 diabetes mellitus with hyperglycemia Current Visit: Yes Status: Acute Plan to address problem: Diabetes management as per primary attending (5) Altered mental status Current Visit: Yes Status: Acute Plan to address problem: follow neurology recommendations Subjective Date of service: 04/15/19 Principal diagnosis: confusion and shuffling gait X 2-3 months ? Interval history: pt somnolent, confused, disoriented Objective - Vital Signs Vital signs: Vital Signs - 12hr 04/15/19 04/15/19 04/15/19 01:20 01:30 01:40 Temperature Pulse Rate 74 73 73 Pulse Rate [ Apical] Respiratory 24 22 18 Rate Blood Pressure 161/76 161/76 161/76 O2 Sat by Pulse 100 100 100 Oximetry 04/15/19 04/15/19 04/15/19 01:50 02:00 02:10 Temperature Pulse Rate 73 72 73 Pulse Rate [ Apical] Respiratory 18 19 25 H Rate Blood Pressure 161/76 165/74 165/74 O2 Sat by Pulse 100 98 100 Oximetry 04/15/19 04/15/19 04/15/19 02:20 02:30 02:40 Temperature Pulse Rate 73 73 72 Pulse Rate [ Apical] Respiratory 21 18 24 Rate Blood Pressure 165/74 161/76 161/76 O2 Sat by Pulse 98 99 Oximetry 04/15/19 04/15/19 04/15/19 02:50 03:00 03:10 Temperature Pulse Rate 75 76 77 Pulse Rate [ Apical] Respiratory 17 22 22 Rate Blood Pressure 161/76 161/76 156/69 O2 Sat by Pulse 92 86 69 L Oximetry 04/15/19 04/15/19 04/15/19 03:20 03:30 03:40 Temperature Pulse Rate 77 79 77 Pulse Rate [ Apical] Respiratory 18 12 15 Rate Blood Pressure 156/69 156/69 156/69 O2 Sat by Pulse 98 97 98 Oximetry 04/15/19 04/15/19 04/15/19 03:50 04:00 04:10 Temperature 99.0 F 99.0 F Pulse Rate 80 76 74 Pulse Rate [ 75 Apical] Respiratory 16 18 20 Rate Blood Pressure 156/69 156/69 167/72 O2 Sat by Pulse 97 98 97 Oximetry 04/15/19 04/15/19 04/15/19 04:20 04:30 04:40 Temperature Pulse Rate 82 87 81 Pulse Rate [ Apical] Respiratory 19 29 H 18 Rate Blood Pressure 167/72 167/72 167/72 O2 Sat by Pulse 98 100 98 Oximetry 04/15/19 04/15/19 04/15/19 04:50 05:00 05:10 Temperature Pulse Rate 73 76 75 Pulse Rate [ Apical] Respiratory 17 18 16 Rate Blood Pressure 167/72 167/72 167/72 O2 Sat by Pulse 99 98 99 Oximetry 04/15/19 04/15/19 04/15/19 05:20 05:30 05:40 Temperature Pulse Rate 75 77 77 Pulse Rate [ Apical] Respiratory 17 17 17 Rate Blood Pressure 167/72 167/72 167/72 O2 Sat by Pulse 98 98 98 Oximetry 04/15/19 04/15/19 04/15/19 05:50 06:00 06:10 Temperature Pulse Rate 76 77 76 Pulse Rate [ Apical] Respiratory 17 16 17 Rate Blood Pressure 167/72 167/72 148/72 O2 Sat by Pulse 98 98 98 Oximetry 04/15/19 04/15/19 04/15/19 06:20 06:30 06:40 Temperature Pulse Rate 76 76 77 Pulse Rate [ Apical] Respiratory 17 18 17 Rate Blood Pressure 148/72 148/72 148/72 O2 Sat by Pulse 98 99 98 Oximetry 04/15/19 04/15/19 04/15/19 06:50 07:00 07:10 Temperature Pulse Rate 77 77 78 Pulse Rate [ Apical] Respiratory 18 18 18 Rate Blood Pressure 148/72 171/80 148/72 O2 Sat by Pulse 98 96 98 Oximetry 04/15/19 04/15/19 04/15/19 07:20 07:31 07:41 Temperature Pulse Rate 78 78 77 Pulse Rate [ Apical] Respiratory 17 17 17 Rate Blood Pressure 171/80 171/80 O2 Sat by Pulse 98 98 98 Oximetry 04/15/19 04/15/19 04/15/19 07:50 08:00 08:07 Temperature 98.7 F Pulse Rate 82 75 74 Pulse Rate [ Apical] Respiratory 17 11 L Rate Blood Pressure 181/76 174/76 174/76 O2 Sat by Pulse 96 98 Oximetry 04/15/19 04/15/19 04/15/19 08:11 08:21 08:31 Temperature Pulse Rate 86 76 81 Pulse Rate [ Apical] Respiratory 18 17 Rate Blood Pressure 174/76 153/66 153/66 O2 Sat by Pulse 98 99 99 Oximetry 04/15/19 04/15/19 04/15/19 08:41 08:51 09:00 Temperature Pulse Rate 82 80 83 Pulse Rate [ Apical] Respiratory 20 19 19 Rate Blood Pressure 153/66 153/66 150/64 O2 Sat by Pulse 99 99 98 Oximetry 04/15/19 04/15/19 04/15/19 09:11 09:39 09:41 Temperature Pulse Rate 82 86 91 H Pulse Rate [ Apical] Respiratory 18 14 18 Rate Blood Pressure 150/64 150/64 150/64 O2 Sat by Pulse 99 99 99 Oximetry 04/15/19 04/15/19 04/15/19 09:51 10:00 10:11 Temperature Pulse Rate 85 82 87 Pulse Rate [ Apical] Respiratory 20 20 19 Rate Blood Pressure 156/62 151/65 151/65 O2 Sat by Pulse 99 97 99 Oximetry 04/15/19 04/15/19 04/15/19 10:21 10:31 10:41 Temperature Pulse Rate 83 85 80 Pulse Rate [ Apical] Respiratory 20 22 19 Rate Blood Pressure 150/64 150/64 150/64 O2 Sat by Pulse 99 98 99 Oximetry 04/15/19 04/15/19 04/15/19 10:45 10:51 11:01 Temperature Pulse Rate 82 85 91 H Pulse Rate [ Apical] Respiratory 17 20 Rate Blood Pressure 151/65 150/64 165/66 O2 Sat by Pulse 99 98 Oximetry 04/15/19 04/15/19 04/15/19 11:11 11:20 11:31 Temperature Pulse Rate 86 88 86 Pulse Rate [ Apical] Respiratory 18 19 18 Rate Blood Pressure 165/66 167/91 167/91 O2 Sat by Pulse 98 96 99 Oximetry 04/15/19 11:41 Temperature Pulse Rate 84 Pulse Rate [ Apical] Respiratory 18 Rate Blood Pressure 167/91 O2 Sat by Pulse 99 Oximetry - General Appearance General appearance: well-developed, well-nourished, appears stated age EENT: ATNC, PERRL, mucous membranes moist Neck: no JVD Respiratory: Present: Clear to Ascultation Cardiology: regular, S1S2 Gastrointestinal: normoactive bowel sounds Integumentary: no rash, other (no edema ) Neurologic: no focal deficit, CN 3-12 intact - Lab 04/14/19 04:09 04/15/19 04:03 Most recent lab results Calcium 8.9 mg/dL (8.4-10.2) 04/15/19 04:03 Urine Creatinine 94.7 mg/dL (0.1-20.0) H 04/15/19 01:40 Urine Sodium 72 mmol/L 04/15/19 01:40 Urine Total Protein 374 mg/dL (5-11.8) H 04/15/19 01:40 Medications & Allergies - Medications Allergies/Adverse Reactions: Allergies No Known Allergies Allergy (Verified 07/11/13 22:02) Home Medications: Home Medications Medication Instructions Recorded Confirmed Last Taken Type Amlodipine Besylate [Norvasc] 10 mg PO QPM 07/12/13 04/13/19 07/11/13 19:30 History 10 mg Doxazosin [Cardura] 2 mg PO QHS 07/12/13 04/13/19 07/11/13 19:30 History 1 mg Losartan [Cozaar] 100 mg PO QDAY 07/12/13 04/13/19 07/10/13 History 50 mg Metoprolol [Lopressor TAB] 25 mg PO BID 07/12/13 04/13/19 07/11/13 19:30 History 25 mg Simvastatin 40 mg PO QHS 07/06/15 04/13/19 Unknown History Clopidogrel [Plavix] 75 mg PO QDAY 04/13/19 04/13/19 Unknown History NIFEdipine [Nifedipine ER] 90 mg PO QDAY 04/13/19 04/13/19 Unknown History Active Medications: Generic Name Dose Route Start Last Admin Trade Name Freq PRN Reason Stop Dose Admin Acetaminophen 650 mg 04/13/19 16:16 Tylenol PO Q4H PRN Pain MILD(1-3)/Fever >100.5/CUEVA Aspirin 81 mg 04/15/19 10:00 04/15/19 10:44 Baby Aspirin PO Not Given QDAY [facility] Clopidogrel Bisulfate 75 mg 04/13/19 17:00 04/15/19 10:45 Plavix PO Not Given QDAY [facility] Dextrose 0 ml 04/14/19 01:26 D50w (25gm) Syringe IV Q30MIN PRN Hypoglycemia Protocol Doxazosin Mesylate 2 mg 04/13/19 22:00 04/14/19 22:38 Cardura PO 2 mg QHS SOL Administration Famotidine 20 mg 04/13/19 22:00 04/15/19 10:45 Pepcid PO Not Given DAILY [facility] Hydralazine HCl 10 mg 04/13/19 15:40 04/15/19 08:07 Apresoline IV 10 mg Q3HR PRN Administration Hypertension Hydromorphone HCl 0.5 mg 04/13/19 16:16 Dilaudid IV Q3H PRN Pain , Severe (7-10) Thiamine HCl 100 mg/ Sodium 51 mls @ 100 mls/hr 04/14/19 16:00 04/15/19 10:45 Chloride IV 04/16/19 23:59 100 mls/hr QDAY SOL Administration Sodium Chloride 500 mls @ 100 mls/hr 04/15/19 09:00 Nacl 0.45% IV DIRECT [facility] Insulin Glargine 10 units 04/14/19 10:00 04/15/19 10:43 Lantus SUB-Q 10 units BID SOL Administration Insulin Human Lispro 0 unit 04/14/19 07:30 04/15/19 08:08 Humalog SUB-Q Not Given ACHS [facility] Protocol Lorazepam 1 mg 04/14/19 16:41 04/15/19 09:17 Ativan IV 04/15/19 16:40 1 mg [facility] SOL Administration Losartan Potassium 100 mg 04/13/19 17:00 04/15/19 10:45 Cozaar PO Not Given QDAY SOL Metoprolol Tartrate 50 mg 04/13/19 22:00 04/15/19 10:45 Metoprolol PO Not Given BID SOL Nifedipine 90 mg 04/13/19 17:00 04/15/19 10:45 Procardia Xl PO Not Given QDAY SOL Ondansetron HCl 4 mg 04/13/19 16:16 Zofran IV Q8H PRN Nausea And Vomiting Oxycodone/Acetaminophen 1 tab 04/13/19 16:13 Percocet 5/325 PO Q6H PRN Pain, Moderate (4-6) Pravastatin Sodium 80 mg 04/13/19 22:00 04/14/19 22:37 Pravachol PO 80 mg QHS SOL Administration Sodium Chloride 10 ml 04/13/19 22:00 04/15/19 10:44 Sodium Chloride Flush Syringe 10 Ml IV 10 ml BID SOL Administration Sodium Chloride 10 ml 04/14/19 09:00 Sodium Chloride Flush Syringe 10 Ml IV PRN PRN LINE FLUSH
--- NOTE | 2019-04-15 14:09 | Progress Note ---
Assessment and Plan Assessment and plan: Aphasia, r/o acute stroke -on stroke protocol -CT head neg -MRI head and cervical spine pending -Echo showed EF of 55-60% with patent foramen ovale -Neurology following LUIS -probably vasomotor nephropathy due to hypertensive urgency -On IVF, will monitor cr level -Renal US neg for hydronephrosis -nephrology following Hypertensive urgency -BP uncontrolled -Continue Cardura, nifedipine and Cozaar. Will increase metoprolol dose to 100 mg twice a day -on PRN IV hydralazine -Monitor blood pressure and adjust meds as needed Hypernatremia -IV fluid changed to half normal saline -We'll monitor sodium level Elevated troponin -probably demand ischemia due to acute kidney injury -troponin levels trended down -echo showed EF of 55-60% without wall motion abnormalities DM type 2 with hyperglycemia -BG improved -Continue current insulin regimen, will monitor BG -A1c: 10.1 AOCD -H/H stable HLD -cont statin DVT Prophylaxis -SCDs while patient in bed -Lovenox Disposition: For discharge when medically stable Time spent: 35 mins History Interval history: Patient more awake today and responsive. He is oriented 1 to person only. No overnight issues reported Hospitalist Physical - Constitutional Vitals: Temp Pulse Resp BP Pulse Ox 98.7 F 84 18 167/91 99 04/15/19 08:00 04/15/19 11:41 04/15/19 11:41 04/15/19 11:41 04/15/19 11:41 General appearance: Present: no acute distress - EENT Eyes: Present: PERRL, EOM intact ENT: hearing intact, clear oral mucosa - Neck Neck: Present: supple - Respiratory Respiratory effort: normal Respiratory: bilateral: CTA - Cardiovascular Rhythm: regular Heart Sounds: Present: S1 & S2 - Extremities Extremities: No edema - Abdominal General gastrointestinal: soft, non-tender, normal bowel sounds - Integumentary Integumentary: Present: warm, dry - Psychiatric Psychiatric: other (unable to assess due to AMS) - Neurologic Neurologic: moves all extremities Results - Labs CBC & Chem 7: 04/14/19 04:09 04/15/19 04:03 Labs: Laboratory Last Values WBC 6.5 K/mm3 (4.5-11.0) 04/14/19 04:09 RBC 4.40 M/mm3 (3.65-5.03) 04/14/19 04:09 Hgb 11.1 gm/dl (11.8-15.2) L 04/14/19 04:09 Hct 32.9 % (35.5-45.6) L 04/14/19 04:09 MCV 75 fl (84-94) L 04/14/19 04:09 MCH 25 pg (28-32) L 04/14/19 04:09 MCHC 34 % (32-34) 04/14/19 04:09 RDW 16.0 % (13.2-15.2) H 04/14/19 04:09 Plt Count 200 K/mm3 (140-440) 04/14/19 04:09 Lymph % (Auto) 23.7 % (13.4-35.0) 04/14/19 04:09 [place] % (Auto) 9.0 % (0.0-7.3) H 04/14/19 04:09 Eos % (Auto) 1.3 % (0.0-4.3) 04/14/19 04:09 Baso % (Auto) 0.5 % (0.0-1.8) 04/14/19 04:09 Lymph # 1.5 K/mm3 (1.2-5.4) 04/14/19 04:09 [place] # 0.6 K/mm3 (0.0-0.8) 04/14/19 04:09 Eos # 0.1 K/mm3 (0.0-0.4) 04/14/19 04:09 Baso # 0.0 K/mm3 (0.0-0.1) 04/14/19 04:09 Seg Neutrophils % 65.5 % (40.0-70.0) 04/14/19 04:09 Seg Neutrophils # 4.2 K/mm3 (1.8-7.7) 04/14/19 04:09 PT 13.5 Sec. (12.2-14.9) 04/13/19 12:00 INR 1.04 (0.87-1.13) 04/13/19 12:00 APTT 26.6 Sec. (24.2-36.6) 04/13/19 12:00 Sodium 146 mmol/L (137-145) H 04/15/19 04:03 Potassium 4.0 mmol/L (3.6-5.0) 04/15/19 04:03 Chloride 108.8 mmol/L (98-107) H 04/15/19 04:03 Carbon Dioxide 20 mmol/L (22-30) L 04/15/19 04:03 Anion Gap 21 mmol/L 04/15/19 04:03 BUN 36 mg/dL (9-20) H 04/15/19 04:03 Creatinine 2.6 mg/dL (0.8-1.5) H 04/15/19 04:03 Estimated GFR 30 ml/min 04/15/19 04:03 BUN/Creatinine Ratio 14 % 04/15/19 04:03 Glucose 184 mg/dL (75-100) H 04/15/19 04:03 POC Glucose 148 (70-105) H 04/15/19 08:13 Hemoglobin A1c 10.1 % (4-6) H 04/13/19 19:07 Calcium 8.9 mg/dL (8.4-10.2) 04/15/19 04:03 Total Bilirubin 0.30 mg/dL (0.1-1.2) 04/14/19 04:09 AST 11 units/L (5-40) 04/14/19 04:09 ALT 7 units/L (7-56) 04/14/19 04:09 Alkaline Phosphatase 88 units/L (35-129) 04/14/19 04:09 Troponin T 0.035 ng/mL (0.00-0.029) H 04/14/19 09:21 NT-Pro-B Natriuret Pep 1384 pg/mL (0-900) H 04/13/19 12:00 Total Protein 5.8 g/dL (6.3-8.2) L 04/14/19 04:09 Albumin 3.0 g/dL (3.9-5) L 04/14/19 04:09 Albumin/Globulin Ratio 1.1 % 04/14/19 04:09 Triglycerides 108 mg/dL (2-149) 04/13/19 12:00 Cholesterol 199 mg/dL (50-199) 04/13/19 12:00 LDL Cholesterol Direct 125 mg/dL (50-130) 04/13/19 12:00 HDL Cholesterol 65 mg/dL (40-59) H 04/13/19 12:00 Cholesterol/HDL Ratio 3.06 % 04/13/19 12:00 Vitamin B12 804.1 pg/mL (211-911) 04/14/19 15:52 Folate 10.73 ng/mL (7.3-26.0) 04/14/19 15:52 Urine Creatinine 94.7 mg/dL (0.1-20.0) H 04/15/19 01:40 Urine Sodium 72 mmol/L 04/15/19 01:40 Urine Total Protein 374 mg/dL (5-11.8) H 04/15/19 01:40 Hepatitis A IgM Ab Non-reactive (NonReactive) 04/14/19 12:52 Hep Bs Antigen Non-reactive (Negative) 04/14/19 12:52 Hep B Core IgM Ab Non-reactive (NonReactive) 04/14/19 12:52 Hepatitis C Antibody Non-reactive (NonReactive) 04/14/19 12:52 Active Medications - Current Medications Current Medications: Generic Name Dose Route Start Last Admin Trade Name Freq PRN Reason Stop Dose Admin Acetaminophen 650 mg 04/13/19 16:16 Tylenol PO Q4H PRN Pain MILD(1-3)/Fever >100.5/CUEVA Aspirin 81 mg 04/15/19 10:00 04/15/19 10:44 Baby Aspirin PO Not Given QDAY [facility] Clopidogrel Bisulfate 75 mg 04/13/19 17:00 04/15/19 10:45 Plavix PO Not Given QDAY [facility] Dextrose 0 ml 04/14/19 01:26 D50w (25gm) Syringe IV Q30MIN PRN Hypoglycemia Protocol Doxazosin Mesylate 2 mg 04/13/19 22:00 04/14/19 22:38 Cardura PO 2 mg QHS SOL Administration Famotidine 20 mg 04/13/19 22:00 04/15/19 10:45 Pepcid PO Not Given DAILY SOL Hydralazine HCl 10 mg 04/13/19 15:40 04/15/19 08:07 Apresoline IV 10 mg Q3HR PRN Administration Hypertension Hydromorphone HCl 0.5 mg 04/13/19 16:16 Dilaudid IV Q3H PRN Pain , Severe (7-10) Thiamine HCl 100 mg/ Sodium 51 mls @ 100 mls/hr 04/14/19 16:00 04/15/19 10:45 Chloride IV 04/16/19 23:59 100 mls/hr QDAY SOL Administration Sodium Chloride 500 mls @ 100 mls/hr 04/15/19 09:00 Nacl 0.45% IV DIRECT SOL Insulin Glargine 10 units 04/14/19 10:00 04/15/19 10:43 Lantus SUB-Q 10 units BID SOL Administration Insulin Human Lispro 0 unit 04/14/19 07:30 04/15/19 08:08 Humalog SUB-Q Not Given ACHS [facility] Protocol Lorazepam 1 mg 04/14/19 16:41 04/15/19 09:17 Ativan IV 04/15/19 16:40 1 mg [employer] [facility] Administration Losartan Potassium 100 mg 04/13/19 17:00 04/15/19 10:45 Cozaar PO Not Given QDAY [facility] Metoprolol Tartrate 50 mg 04/13/19 22:00 04/15/19 10:45 Metoprolol PO Not Given BID [facility] Nifedipine 90 mg 04/13/19 17:00 04/15/19 10:45 Procardia Xl PO Not Given QDAY [facility] Ondansetron HCl 4 mg 04/13/19 16:16 Zofran IV Q8H PRN Nausea And Vomiting Oxycodone/Acetaminophen 1 tab 04/13/19 16:13 Percocet 5/325 PO Q6H PRN Pain, Moderate (4-6) Pravastatin Sodium 80 mg 04/13/19 22:00 04/14/19 22:37 Pravachol PO 80 mg QHS SOL Administration Sodium Chloride 10 ml 04/13/19 22:00 04/15/19 10:44 Sodium Chloride Flush Syringe 10 Ml IV 10 ml BID SOL Administration Sodium Chloride 10 ml 04/14/19 09:00 Sodium Chloride Flush Syringe 10 Ml IV PRN PRN LINE FLUSH
[2019-04-15] MEDS ORDERED: METOPROLOL TARTRATE 50 MG TAB PO SCH (14:11)
[2019-04-15] MEDS: PRAVASTATIN 80 MG TAB PO SCH (21:50)
[2019-04-15] MEDS: DOXAZOSIN 1 MG TAB PO SCH (21:50)
[2019-04-15] MEDS: METOPROLOL TARTRATE 100 MG TAB PO SCH (21:51)
[2019-04-16 06:07] LABS: Calcium 8.8 mg/dL (8.4-10.2)
[2019-04-16] MEDS: METOPROLOL TARTRATE 100 MG TAB PO SCH ×3 (07:49→22:04)
[2019-04-16] MEDS: INSULIN LISPRO 100 UNIT/ML SUB-Q SCH ×4 (08:00→22:03)
[2019-04-16] MEDS ORDERED: D5W/0.45% NACL/KCL 20 MEQ 20 MEQ/1,000 ML BAG IV SCH (10:00)
[2019-04-16] MEDS: LOSARTAN 50 MG TAB PO SCH (10:51)
[2019-04-16] MEDS: NIFEdipine XL 90 MG TAB PO SCH (10:51)
[2019-04-16] MEDS: ASPIRIN 81 MG TAB CHEW PO SCH (10:51)
[2019-04-16] MEDS: FAMOTIDINE 20 MG TAB PO SCH (10:51)
[2019-04-16] MEDS: CLOPIDOGREL 75 MG TAB PO SCH (10:51)
[2019-04-16] MEDS ORDERED: POTASSIUM CHLORIDE ER 20 MEQ TAB PO ONE (14:20)
--- NOTE | 2019-04-16 14:26 | Progress Note ---
Assessment and Plan Assessment and plan: Pt is a 63 y/o AAM admitted for LUIS and hypertensive urgency. On 04/14, code stroke was called bs he was noted to be non-verbal and confused. Head CT scan done was neg. Speech impediment/Aphasia, r/o acute stroke -cont asa, plavix and statin -CT head neg -MRI head and cervical spine cancelled per radiology bs nurse unavailable, may re-order on Thursday -Echo showed EF of 55-60% with patent foramen ovale -Neurology following LUIS -probably vasomotor nephropathy due to hypertensive urgency -On IVF, will monitor cr level -Renal US neg for hydronephrosis -nephrology following Acute metabolic encephalopathy -improving -head CT scan neg Hypertensive urgency -BP still uncontrolled -Continue Cozaar and metoprolol. will change nifedipine to amlodipine 10 mg and increase dose of cardura to 4 mg. -on PRN IV hydralazine and labetalol -Monitor blood pressure and adjust meds as needed Hypernatremia -probably 2/2 dehydration -cont IVF (1/2NS) -We'll monitor sodium level Elevated troponin -probably demand ischemia due to acute kidney injury -troponin levels trended down -echo showed EF of 55-60% without wall motion abnormalities DM type 2 with hyperglycemia, now hypoglycemia -BG stable -Continue SSI and hypoglycemic protocol -will monitor BG -A1c: 10.1 Hypokalemia -repleted, will monitor level -will check mg level AOCD -H/H stable HLD -cont statin DVT Prophylaxis -[facility]: For discharge when medically stable History Interval history: Pt is more awake today and oriented x3. He denied chest pain or sob Hospitalist Physical - Constitutional Vitals: Temp Pulse Resp BP Pulse Ox 98.4 F 101 H 20 191/68 95 04/16/19 04:41 04/15/19 23:46 04/15/19 23:46 04/15/19 23:46 04/15/19 23:46 General appearance: Present: no acute distress - EENT Eyes: Present: PERRL, EOM intact ENT: hearing intact, clear oral mucosa - Neck Neck: Present: supple - Respiratory Respiratory effort: normal Respiratory: bilateral: CTA - Cardiovascular Rhythm: regular Heart Sounds: Present: S1 & S2 - Extremities Extremities: No edema - Abdominal General gastrointestinal: soft, non-tender, normal bowel sounds - Integumentary Integumentary: Present: warm, dry - Psychiatric Psychiatric: cooperative - Neurologic Neurologic: moves all extremities Results - Labs CBC & Chem 7: 04/14/19 04:09 04/16/19 05:31 Labs: Laboratory Last Values WBC 6.5 K/mm3 (4.5-11.0) 04/14/19 04:09 RBC 4.40 M/mm3 (3.65-5.03) 04/14/19 04:09 Hgb 11.1 gm/dl (11.8-15.2) L 04/14/19 04:09 Hct 32.9 % (35.5-45.6) L 04/14/19 04:09 MCV 75 fl (84-94) L 04/14/19 04:09 MCH 25 pg (28-32) L 04/14/19 04:09 MCHC 34 % (32-34) 04/14/19 04:09 RDW 16.0 % (13.2-15.2) H 04/14/19 04:09 Plt Count 200 K/mm3 (140-440) 04/14/19 04:09 Lymph % (Auto) 23.7 % (13.4-35.0) 04/14/19 04:09 [place] % (Auto) 9.0 % (0.0-7.3) H 04/14/19 04:09 Eos % (Auto) 1.3 % (0.0-4.3) 04/14/19 04:09 Baso % (Auto) 0.5 % (0.0-1.8) 04/14/19 04:09 Lymph # 1.5 K/mm3 (1.2-5.4) 04/14/19 04:09 [place] # 0.6 K/mm3 (0.0-0.8) 04/14/19 04:09 Eos # 0.1 K/mm3 (0.0-0.4) 04/14/19 04:09 Baso # 0.0 K/mm3 (0.0-0.1) 04/14/19 04:09 Seg Neutrophils % 65.5 % (40.0-70.0) 04/14/19 04:09 Seg Neutrophils # 4.2 K/mm3 (1.8-7.7) 04/14/19 04:09 PT 13.5 Sec. (12.2-14.9) 04/13/19 12:00 INR 1.04 (0.87-1.13) 04/13/19 12:00 APTT 26.6 Sec. (24.2-36.6) 04/13/19 12:00 Sodium 147 mmol/L (137-145) H 04/16/19 05:31 Potassium 3.5 mmol/L (3.6-5.0) L 04/16/19 05:31 Chloride 113.4 mmol/L (98-107) H 04/16/19 05:31 Carbon Dioxide 22 mmol/L (22-30) 04/16/19 05:31 Anion Gap 15 mmol/L 04/16/19 05:31 BUN 35 mg/dL (9-20) H 04/16/19 05:31 Creatinine 2.8 mg/dL (0.8-1.5) H 04/16/19 05:31 Estimated GFR 28 ml/min 04/16/19 05:31 BUN/Creatinine Ratio 13 % 04/16/19 05:31 Glucose 66 mg/dL (75-100) L 04/16/19 05:31 POC Glucose 123 (70-105) H 04/16/19 12:49 Hemoglobin A1c 10.1 % (4-6) H 04/13/19 19:07 Calcium 8.8 mg/dL (8.4-10.2) 04/16/19 05:31 Total Bilirubin 0.30 mg/dL (0.1-1.2) 04/14/19 04:09 AST 11 units/L (5-40) 04/14/19 04:09 ALT 7 units/L (7-56) 04/14/19 04:09 Alkaline Phosphatase 88 units/L (35-129) 04/14/19 04:09 Troponin T 0.035 ng/mL (0.00-0.029) H 04/14/19 09:21 NT-Pro-B Natriuret Pep 1384 pg/mL (0-900) H 04/13/19 12:00 Total Protein 5.8 g/dL (6.3-8.2) L 04/14/19 04:09 Albumin 3.0 g/dL (3.9-5) L 04/14/19 04:09 Albumin/Globulin Ratio 1.1 % 04/14/19 04:09 Triglycerides 108 mg/dL (2-149) 04/13/19 12:00 Cholesterol 199 mg/dL (50-199) 04/13/19 12:00 LDL Cholesterol Direct 125 mg/dL (50-130) 04/13/19 12:00 HDL Cholesterol 65 mg/dL (40-59) H 04/13/19 12:00 Cholesterol/HDL Ratio 3.06 % 04/13/19 12:00 Vitamin B12 804.1 pg/mL (211-911) 04/14/19 15:52 Folate 10.73 ng/mL (7.3-26.0) 04/14/19 15:52 Urine Creatinine 94.7 mg/dL (0.1-20.0) H 04/15/19 01:40 Urine Sodium 72 mmol/L 04/15/19 01:40 Urine Total Protein 374 mg/dL (5-11.8) H 04/15/19 01:40 Hepatitis A IgM Ab Non-reactive (NonReactive) 04/14/19 12:52 Hep Bs Antigen Non-reactive (Negative) 04/14/19 12:52 Hep B Core IgM Ab Non-reactive (NonReactive) 04/14/19 12:52 Hepatitis C Antibody Non-reactive (NonReactive) 04/14/19 12:52 Active Medications - Current Medications Current Medications: Generic Name Dose Route Start Last Admin Trade Name Freq PRN Reason Stop Dose Admin Acetaminophen 650 mg 04/13/19 16:16 Tylenol PO Q4H PRN Pain MILD(1-3)/Fever >100.5/CUEVA Aspirin 81 mg 04/15/19 10:00 04/16/19 10:51 Baby Aspirin PO 81 mg QDAY SOL Administration Clopidogrel Bisulfate 75 mg 04/13/19 17:00 04/16/19 10:51 Plavix PO 75 mg QDAY SOL Administration Dextrose 0 ml 04/14/19 01:26 04/15/19 16:23 D50w (25gm) Syringe IV 10 ml Q30MIN PRN Administration Hypoglycemia Protocol Doxazosin Mesylate 2 mg 04/13/19 22:00 04/15/19 21:50 Cardura PO 2 mg QHS SOL Administration Famotidine 20 mg 04/13/19 22:00 04/16/19 10:51 Pepcid PO 20 mg DAILY SOL Administration Hydralazine HCl 10 mg 04/13/19 15:40 04/15/19 16:23 Apresoline IV 10 mg Q3HR PRN Administration Hypertension Hydromorphone HCl 0.5 mg 04/13/19 16:16 Dilaudid IV Q3H PRN Pain , Severe (7-10) Thiamine HCl 100 mg/ Sodium 51 mls @ 100 mls/hr 04/14/19 16:00 04/15/19 10:45 Chloride IV 04/16/19 23:59 100 mls/hr QDAY SOL Administration Sodium Chloride 500 mls @ 125 mls/hr 04/16/19 15:00 Nacl 0.45% IV DIRECT SOL Insulin Human Lispro 0 unit 04/14/19 07:30 04/16/19 13:05 Humalog SUB-Q Not Given ACHS [facility] Protocol Labetalol HCl 10 mg 04/16/19 09:23 Labetalol IV Q4H PRN Blood Pressure Losartan Potassium 100 mg 04/13/19 17:00 04/16/19 10:51 Cozaar PO 100 mg QDAY SOL Administration Metoprolol Tartrate 100 mg 04/15/19 15:00 04/16/19 10:51 Metoprolol PO 100 mg BID SOL Administration Nifedipine 90 mg 04/13/19 17:00 04/16/19 10:51 Procardia Xl PO 90 mg QDAY SOL Administration Ondansetron HCl 4 mg 04/13/19 16:16 Zofran IV Q8H PRN Nausea And Vomiting Oxycodone/Acetaminophen 1 tab 04/13/19 16:13 Percocet 5/325 PO Q6H PRN Pain, Moderate (4-6) Potassium Chloride 40 meq 04/16/19 14:20 K-Dur PO 04/16/19 14:21 ONCE ONE Pravastatin Sodium 80 mg 04/13/19 22:00 04/15/19 21:50 Pravachol PO 80 mg QHS SOL Administration Sodium Chloride 10 ml 04/13/19 22:00 04/16/19 10:51 Sodium Chloride Flush Syringe 10 Ml IV 10 ml BID SOL Administration Sodium Chloride 10 ml 04/14/19 09:00 Sodium Chloride Flush Syringe 10 Ml IV PRN PRN LINE FLUSH
[2019-04-16] MEDS ORDERED: hydrALAZINE 100 MG TAB PO SCH (14:31)
[2019-04-16] MEDS: hydrALAZINE 20 MG/1 ML INJ IV PRN (14:49)
[2019-04-16] MEDS ORDERED: SODIUM CHLORIDE 0.45% 500 ML IV SCH (15:00)
[2019-04-16] MEDS: amLODIPine 10 MG TAB PO SCH (15:05)
[2019-04-16] MEDS: DOXAZOSIN 1 MG TAB PO SCH (15:08)
[2019-04-16] MEDS: THIAMINE 100 MG in SODIUM CHLORIDE 0.9% 50 ML IV SCH (15:14)
--- NOTE | 2019-04-16 15:42 | Progress Note ---
Assessment and Plan - Patient Problems (1) Acute renal failure Current Visit: Yes Status: Acute Qualifiers: Acute renal failure type: unspecified Qualified Code(s): N17.9 - Acute kidney failure, unspecified Plan to address problem: LUIS is likely secondary to malignant hypertension , superimposed on CKD/hypertensive nephrosclerosis. check UA, urine lytes; urine protein/cr ratio was measured to b 3.9g/g raising suspicion for chronic diabetic nephropathy . Renal US reviewed. BP control with IV hydralazine to target normotension. Avoid nephrotoxins, NSAIDS, IV contrast. will monitor lytes/renal parameters and make further recommendations. (2) Hypertensive urgency Current Visit: Yes Status: Acute Plan to address problem: BP control with IV hydralazine to target normotension (3) Hypertensive chronic kidney disease with stage 1 through stage 4 chronic kidney disease, or unspecified chronic kidney disease Current Visit: Yes Status: Acute Plan to address problem: (4) Type 2 diabetes mellitus with hyperglycemia Current Visit: Yes Status: Acute Plan to address problem: Diabetes management as per primary attending (5) Altered mental status Current Visit: Yes Status: Acute Plan to address problem: follow neurology recommendations (6) Hypernatremia Current Visit: Yes Status: Acute Plan to address problem: cont IVF with 1/2 NS Subjective Date of service: 04/16/19 Principal diagnosis: confusion and shuffling gait X 2-3 months ? Interval history: pt awake, alert, in no acute distress Objective - Vital Signs Vital signs: Vital Signs - 12hr 04/16/19 04/16/19 04/16/19 04:36 04:41 08:52 Temperature 98.4 F 98.2 F Pulse Rate 88 Respiratory 18 18 Rate Blood Pressure 167/71 187/75 O2 Sat by Pulse 99 Oximetry 04/16/19 13:51 Temperature Pulse Rate 70 Respiratory Rate Blood Pressure 190/88 O2 Sat by Pulse 96 Oximetry - General Appearance General appearance: well-developed, well-nourished, appears stated age EENT: ATNC, PERRL, mucous membranes moist Neck: no JVD Respiratory: Present: Clear to Ascultation Cardiology: regular, S1S2 Gastrointestinal: normal Integumentary: no rash Neurologic: no focal deficit, alert and oriented x3, CN 3-12 intact Psychiatric: mood/affect appropriate, cooperative - Lab 04/14/19 04:09 04/16/19 05:31 Most recent lab results Calcium 8.8 mg/dL (8.4-10.2) 04/16/19 05:31 Urine Creatinine 94.7 mg/dL (0.1-20.0) H 04/15/19 01:40 Urine Sodium 72 mmol/L 04/15/19 01:40 Urine Total Protein 374 mg/dL (5-11.8) H 04/15/19 01:40 Medications & Allergies - Medications Allergies/Adverse Reactions: Allergies No Known Allergies Allergy (Verified 07/11/13 22:02) Home Medications: Home Medications Medication Instructions Recorded Confirmed Last Taken Type Amlodipine Besylate [Norvasc] 10 mg PO QPM 07/12/13 04/13/19 07/11/13 19:30 H istory 10 mg Doxazosin [Cardura] 2 mg PO QHS 07/12/13 04/13/19 07/11/13 19:30 History 1 mg Losartan [Cozaar] 100 mg PO QDAY 07/12/13 04/13/19 07/10/13 History 50 mg Metoprolol [Lopressor TAB] 25 mg PO BID 07/12/13 04/13/19 07/11/13 19:30 History 25 mg Simvastatin 40 mg PO QHS 07/06/15 04/13/19 Unknown History Clopidogrel [Plavix] 75 mg PO QDAY 04/13/19 04/13/19 Unknown History NIFEdipine [Nifedipine ER] 90 mg PO QDAY 04/13/19 04/13/19 Unknown History Active Medications: Generic Name Dose Route Start Last Admin Trade Name Freq PRN Reason Stop Dose Admin Acetaminophen 650 mg 04/13/19 16:16 Tylenol PO Q4H PRN Pain MILD(1-3)/Fever >100.5/CUEVA Amlodipine Besylate 10 mg 04/16/19 15:00 04/16/19 15:05 Amlodipine PO 10 mg QDAY SOL Administration Aspirin 81 mg 04/15/19 10:00 04/16/19 10:51 Baby Aspirin PO 81 mg QDAY SOL Administration Clopidogrel Bisulfate 75 mg 04/13/19 17:00 04/16/19 10:51 Plavix PO 75 mg QDAY SOL Administration Dextrose 0 ml 04/14/19 01:26 04/15/19 16:23 D50w (25gm) Syringe IV 10 ml Q30MIN PRN Administration Hypoglycemia Protocol Doxazosin Mesylate 4 mg 04/16/19 15:00 04/16/19 15:08 Cardura PO 4 mg DAILY SOL Administration Famotidine 20 mg 04/13/19 22:00 04/16/19 10:51 Pepcid PO 20 mg DAILY SOL Administration Hydralazine HCl 10 mg 04/13/19 15:40 04/16/19 14:49 Apresoline IV 10 mg Q3HR PRN Administration Hypertension Thiamine HCl 100 mg/ Sodium 51 mls @ 100 mls/hr 04/14/19 16:00 04/16/19 15:14 Chloride IV 04/16/19 23:59 100 mls/hr QDAY SOL Administration Sodium Chloride 500 mls @ 125 mls/hr 04/16/19 15:00 04/16/19 15:05 Nacl 0.45% IV 125 mls/hr DIRECT SOL Administration Insulin Human Lispro 0 unit 04/14/19 07:30 04/16/19 13:05 Humalog SUB-Q Not Given ACHS SOL Protocol Labetalol HCl 10 mg 04/16/19 09:23 Labetalol IV Q4H PRN Blood Pressure Losartan Potassium 100 mg 04/13/19 17:00 04/16/19 10:51 Cozaar PO 100 mg QDAY SOL Administration Metoprolol Tartrate 100 mg 04/15/19 15:00 04/16/19 10:51 Metoprolol PO 100 mg BID SOL Administration Ondansetron HCl 4 mg 04/13/19 16:16 Zofran IV Q8H PRN Nausea And Vomiting Oxycodone/Acetaminophen 1 tab 04/13/19 16:13 Percocet 5/325 PO Q6H PRN Pain, Moderate (4-6) Pravastatin Sodium 80 mg 04/13/19 22:00 04/15/19 21:50 Pravachol PO 80 mg QHS SOL Administration Sodium Chloride 10 ml 04/13/19 22:00 04/16/19 10:51 Sodium Chloride Flush Syringe 10 Ml IV 10 ml BID SOL Administration Sodium Chloride 10 ml 04/14/19 09:00 Sodium Chloride Flush Syringe 10 Ml IV PRN PRN LINE FLUSH
[2019-04-16] MEDS ORDERED: SODIUM CHLORIDE 0.45% 1000 ML IV SOLN IV SCH (16:00)
[2019-04-16] MEDS: SODIUM CHLORIDE 0.45% 1000 ML 1,000 ML IV SCH (17:23)
[2019-04-16] MEDS: PRAVASTATIN 80 MG TAB PO SCH (22:03)
[2019-04-17] MEDS: SODIUM CHLORIDE 0.45% 1000 ML 1,000 ML IV SCH ×4 (02:14→23:09)
--- NOTE | 2019-04-17 09:25 | Progress Note ---
Assessment and Plan Assessment and plan: Pt is a 63 y/o AAM admitted for LUIS and hypertensive urgency. On 04/14, code stroke was called bs he was noted to be non-verbal and confused. Head CT scan done was neg. Speech impediment/Aphasia, r/o acute stroke -cont asa, plavix and statin -CT head neg -MRI head and cervical spine cancelled per radiology bs nurse unavailable, may re-order on Thursday -Echo showed EF of 55-60% with patent foramen ovale -Neurology following LUIS -probably vasomotor nephropathy due to hypertensive urgency -On IVF, will monitor cr level -Renal US neg for hydronephrosis -nephrology following Acute metabolic encephalopathy -improving -head CT scan neg Hypertensive urgency -BP still uncontrolled -Continue Cozaar and metoprolol. will change nifedipine to amlodipine 10 mg and increase dose of cardura to 4 mg. -on PRN IV hydralazine and labetalol -Monitor blood pressure and adjust meds as needed Hypernatremia -probably 2/2 dehydration -cont IVF (1/2NS) -We'll monitor sodium level Elevated troponin -probably demand ischemia due to acute kidney injury -troponin levels trended down -echo showed EF of 55-60% without wall motion abnormalities DM type 2 with hyperglycemia, now hypoglycemia -BG stable -Continue SSI and hypoglycemic protocol -will monitor BG -A1c: 10.1 Hypokalemia -repleted, will monitor level -will check mg level AOCD -H/H stable HLD -cont statin DVT Prophylaxis -SCDs while patient in bed -Lovenox Unable to contact his children/family members to discuss disposition. Appar ently the patient lives alone, and cannot take care of himself. Hospitalist Physical - Constitutional Vitals: Temp Pulse Resp BP Pulse Ox 98.5 F 75 18 130/61 97 04/17/19 05:18 04/17/19 05:16 04/17/19 05:16 04/17/19 05:16 04/17/19 05:16 General appearance: Present: no acute distress Results - Labs CBC & Chem 7: 04/14/19 04:09 04/18/19 03:40 Labs: Laboratory Last Values WBC 6.5 K/mm3 (4.5-11.0) 04/14/19 04:09 RBC 4.40 M/mm3 (3.65-5.03) 04/14/19 04:09 Hgb 11.1 gm/dl (11.8-15.2) L 04/14/19 04:09 Hct 32.9 % (35.5-45.6) L 04/14/19 04:09 MCV 75 fl (84-94) L 04/14/19 04:09 MCH 25 pg (28-32) L 04/14/19 04:09 MCHC 34 % (32-34) 04/14/19 04:09 RDW 16.0 % (13.2-15.2) H 04/14/19 04:09 Plt Count 200 K/mm3 (140-440) 04/14/19 04:09 Lymph % (Auto) 23.7 % (13.4-35.0) 04/14/19 04:09 [place] % (Auto) 9.0 % (0.0-7.3) H 04/14/19 04:09 Eos % (Auto) 1.3 % (0.0-4.3) 04/14/19 04:09 Baso % (Auto) 0.5 % (0.0-1.8) 04/14/19 04:09 Lymph # 1.5 K/mm3 (1.2-5.4) 04/14/19 04:09 [place] # 0.6 K/mm3 (0.0-0.8) 04/14/19 04:09 Eos # 0.1 K/mm3 (0.0-0.4) 04/14/19 04:09 Baso # 0.0 K/mm3 (0.0-0.1) 04/14/19 04:09 Seg Neutrophils % 65.5 % (40.0-70.0) 04/14/19 04:09 Seg Neutrophils # 4.2 K/mm3 (1.8-7.7) 04/14/19 04:09 PT 13.5 Sec. (12.2-14.9) 04/13/19 12:00 INR 1.04 (0.87-1.13) 04/13/19 12:00 APTT 26.6 Sec. (24.2-36.6) 04/13/19 12:00 Sodium 147 mmol/L (137-145) H 04/16/19 05:31 Potassium 3.5 mmol/L (3.6-5.0) L 04/16/19 05:31 Chloride 113.4 mmol/L (98-107) H 04/16/19 05:31 Carbon Dioxide 22 mmol/L (22-30) 04/16/19 05:31 Anion Gap 15 mmol/L 04/16/19 05:31 BUN 35 mg/dL (9-20) H 04/16/19 05:31 Creatinine 2.8 mg/dL (0.8-1.5) H 04/16/19 05:31 Estimated GFR 28 ml/min 04/16/19 05:31 BUN/Creatinine Ratio 13 % 04/16/19 05:31 Glucose 66 mg/dL (75-100) L 04/16/19 05:31 POC Glucose 128 (70-105) H 04/17/19 08:29 Hemoglobin A1c 10.1 % (4-6) H 04/13/19 19:07 Calcium 8.8 mg/dL (8.4-10.2) 04/16/19 05:31 Total Bilirubin 0.30 mg/dL (0.1-1.2) 04/14/19 04:09 AST 11 units/L (5-40) 04/14/19 04:09 ALT 7 units/L (7-56) 04/14/19 04:09 Alkaline Phosphatase 88 units/L (35-129) 04/14/19 04:09 Troponin T 0.035 ng/mL (0.00-0.029) H 04/14/19 09:21 NT-Pro-B Natriuret Pep 1384 pg/mL (0-900) H 04/13/19 12:00 Total Protein 5.8 g/dL (6.3-8.2) L 04/14/19 04:09 Albumin 3.0 g/dL (3.9-5) L 04/14/19 04:09 Albumin/Globulin Ratio 1.1 % 04/14/19 04:09 Triglycerides 108 mg/dL (2-149) 04/13/19 12:00 Cholesterol 199 mg/dL (50-199) 04/13/19 12:00 LDL Cholesterol Direct 125 mg/dL (50-130) 04/13/19 12:00 HDL Cholesterol 65 mg/dL (40-59) H 04/13/19 12:00 Cholesterol/HDL Ratio 3.06 % 04/13/19 12:00 Vitamin B12 804.1 pg/mL (211-911) 04/14/19 15:52 Folate 10.73 ng/mL (7.3-26.0) 04/14/19 15:52 Urine Creatinine 94.7 mg/dL (0.1-20.0) H 04/15/19 01:40 Urine Sodium 72 mmol/L 04/15/19 01:40 Urine Total Protein 374 mg/dL (5-11.8) H 04/15/19 01:40 Hepatitis A IgM Ab Non-reactive (NonReactive) 04/14/19 12:52 Hep Bs Antigen Non-reactive (Negative) 04/14/19 12:52 Hep B Core IgM Ab Non-reactive (NonReactive) 04/14/19 12:52 Hepatitis C Antibody Non-reactive (NonReactive) 04/14/19 12:52 Active Medications - Current Medications Current Medications: Generic Name Dose Route Start Last Admin Trade Name Freq PRN Reason Stop Dose Admin Acetaminophen 650 mg 04/13/19 16:16 Tylenol PO Q4H PRN Pain MILD(1-3)/Fever >100.5/CUEVA Amlodipine Besylate 10 mg 04/16/19 15:00 04/16/19 15:05 Amlodipine PO 10 mg QDAY SOL Administration Aspirin 81 mg 04/15/19 10:00 04/16/19 10:51 Baby Aspirin PO 81 mg QDAY SOL Administration Clopidogrel Bisulfate 75 mg 04/13/19 17:00 04/16/19 10:51 Plavix PO 75 mg QDAY SOL Administration Dextrose 0 ml 04/14/19 01:26 04/15/19 16:23 D50w (25gm) Syringe IV 10 ml Q30MIN PRN Administration Hypoglycemia Protocol Doxazosin Mesylate 4 mg 04/16/19 15:00 04/16/19 15:08 Cardura PO 4 mg DAILY SOL Administration Famotidine 20 mg 04/13/19 22:00 04/16/19 10:51 Pepcid PO 20 mg DAILY SOL Administration Hydralazine HCl 10 mg 04/13/19 15:40 04/16/19 14:49 Apresoline IV 10 mg Q3HR PRN Administration Hypertension Sodium Chloride 1,000 mls @ 125 mls/hr 04/16/19 16:00 04/17/19 02:14 Nacl 0.45% 1000 Ml IV 125 mls/hr DIRECT SOL Administration Insulin Human Lispro 0 unit 04/14/19 07:30 04/16/19 22:03 Humalog SUB-Q 4 unit ACHS SOL Administration Protocol Labetalol HCl 10 mg 04/16/19 09:23 Labetalol IV Q4H PRN Blood Pressure Losartan Potassium 100 mg 04/13/19 17:00 04/16/19 10:51 Cozaar PO 100 mg QDAY SOL Administration Metoprolol Tartrate 100 mg 04/15/19 15:00 04/16/19 22:04 Metoprolol PO 100 mg BID SOL Administration Ondansetron HCl 4 mg 04/13/19 16:16 Zofran IV Q8H PRN Nausea And Vomiting Oxycodone/Acetaminophen 1 tab 04/13/19 16:13 Percocet 5/325 PO Q6H PRN Pain, Moderate (4-6) Pravastatin Sodium 80 mg 04/13/19 22:00 04/16/19 22:03 Pravachol PO 80 mg QHS SOL Administration Sodium Chloride 10 ml 04/13/19 22:00 04/16/19 22:04 Sodium Chloride Flush Syringe 10 Ml IV 10 ml BID SOL Administration Sodium Chloride 10 ml 04/14/19 09:00 Sodium Chloride Flush Syringe 10 Ml IV PRN PRN LINE FLUSH
[2019-04-17 09:47] LABS: Calcium 8.3 mg/dL (8.4-10.2)
[2019-04-17] MEDS: METOPROLOL TARTRATE 100 MG TAB PO SCH ×2 (10:17→23:10)
[2019-04-17] MEDS: ASPIRIN 81 MG TAB CHEW PO SCH (10:17)
[2019-04-17] MEDS: CLOPIDOGREL 75 MG TAB PO SCH (10:17)
[2019-04-17] MEDS: amLODIPine 10 MG TAB PO SCH (10:18)
[2019-04-17] MEDS: DOXAZOSIN 1 MG TAB PO SCH (10:23)
[2019-04-17] MEDS: FOLIC ACID 1 MG TAB PO SCH (10:23)
[2019-04-17] MEDS: LOSARTAN 50 MG TAB PO SCH (10:23)
[2019-04-17] MEDS: FAMOTIDINE 20 MG TAB PO SCH (10:24)
[2019-04-17] MEDS: THIAMINE 100 MG TAB PO SCH (10:25)
[2019-04-17] MEDS: INSULIN LISPRO 100 UNIT/ML SUB-Q SCH ×4 (10:31→23:14)
--- NOTE | 2019-04-17 16:10 | Progress Note ---
Assessment and Plan - Patient Problems (1) Acute renal failure Current Visit: Yes Status: Acute Qualifiers: Acute renal failure type: unspecified Qualified Code(s): N17.9 - Acute kidney failure, unspecified Plan to address problem: LUIS is likely secondary to malignant hypertension , superimposed on CKD/hypertensive nephrosclerosis. urine protein/cr ratio was measured to b 3.9g/g raising suspicion for chronic diabetic nephropathy in the setting of uncontrolled T2DM (A1C > 10). check UA, if significant hematuria seen will consider further acute GN w/u. Renal US reviewed no e/o hydro or other sonographic abnormalities seen. BP control with IV hydralazine to target normotension. Avoid nephrotoxins, NSAIDS, IV contrast. will monitor lytes/renal parameters and make further recommendations. (2) Hypertensive urgency Current Visit: Yes Status: Acute Plan to address problem: BP improved, monitor on current meds (3) Hypertensive chronic kidney disease with stage 1 through stage 4 chronic kidney disease, or unspecified chronic kidney disease Current Visit: Yes Status: Acute Plan to address problem: (4) Type 2 diabetes mellitus with hyperglycemia Current Visit: Yes Status: Acute Plan to address problem: Diabetes management as per primary attending (5) Altered mental status Current Visit: Yes Status: Acute (6) Hypernatremia Current Visit: Yes Status: Acute Plan to address problem: improved on IVF with 1/2 NS Subjective Date of service: 04/17/19 Principal diagnosis: confusion and shuffling gait X 2-3 months ? Interval history: pt awake, alert, denies CP, SOB, palpitations, n/v/d, in no acute respiratory distress Objective - Vital Signs Vital signs: Vital Signs - 12hr 04/17/19 04/17/19 04/17/19 05:16 05:18 08:20 Temperature 98.5 F 97.8 F Pulse Rate 75 72 Respiratory 18 18 Rate Blood Pressure 130/61 159/116 O2 Sat by Pulse 97 96 Oximetry 04/17/19 10:00 Temperature Pulse Rate 79 Respiratory Rate Blood Pressure O2 Sat by Pulse Oximetry - General Appearance General appearance: well-developed, well-nourished, appears stated age EENT: ATNC, PERRL, mucous membranes moist Neck: no JVD Respiratory: Present: Clear to Ascultation Cardiology: regular, S1S2 Gastrointestinal: normoactive bowel sounds Integumentary: no rash, other (no edema ) Neurologic: no focal deficit, alert and oriented x3, strength 5/5, CN 3-12 intact Psychiatric: mood/affect appropriate, cooperative - Lab 04/14/19 04:09 04/17/19 08:36 Most recent lab results Calcium 8.3 mg/dL (8.4-10.2) L 04/17/19 08:36 Magnesium 1.80 mg/dL (1.7-2.3) 04/17/19 08:36 Urine Creatinine 94.7 mg/dL (0.1-20.0) H 04/15/19 01:40 Urine Sodium 72 mmol/L 04/15/19 01:40 Urine Total Protein 374 mg/dL (5-11.8) H 04/15/19 01:40 Medications & Allergies - Medications Allergies/Adverse Reactions: Allergies No Known Allergies Allergy (Verified 07/11/13 22:02) Home Medications: Home Medications Medication Instructions Recorded Confirmed Last Taken Type Amlodipine Besylate [Norvasc] 10 mg PO QPM 07/12/13 04/13/19 07/11/13 19:30 History 10 mg Doxazosin [Cardura] 2 mg PO QHS 07/12/13 04/13/19 07/11/13 19:30 History 1 mg Losartan [Cozaar] 100 mg PO QDAY 07/12/13 04/13/19 07/10/13 History 50 mg Metoprolol [Lopressor TAB] 25 mg PO BID 07/12/13 04/13/19 07/11/13 19:30 History 25 mg Simvastatin 40 mg PO QHS 07/06/15 04/13/19 Unknown History Clopidogrel [Plavix] 75 mg PO QDAY 04/13/19 04/13/19 Unknown History NIFEdipine [Nifedipine ER] 90 mg PO QDAY 04/13/19 04/13/19 Unknown History Active Medications: Generic Name Dose Route Start Last Admin Trade Name Freq PRN Reason Stop Dose Admin Acetaminophen 650 mg 04/13/19 16:16 Tylenol PO Q4H PRN Pain MILD(1-3)/Fever >100.5/CUEVA Amlodipine Besylate 10 mg 04/16/19 15:00 04/17/19 10:18 Amlodipine PO 10 mg QDAY SOL Administration Aspirin 81 mg 04/15/19 10:00 04/17/19 10:17 Baby Aspirin PO 81 mg QDAY SOL Administration Clopidogrel Bisulfate 75 mg 04/13/19 17:00 04/17/19 10:17 Plavix PO 75 mg QDAY SOL Administration Dextrose 0 ml 04/14/19 01:26 04/15/19 16:23 D50w (25gm) Syringe IV 10 ml Q30MIN PRN Administration Hypoglycemia Protocol Doxazosin Mesylate 4 mg 04/16/19 15:00 04/17/19 10:23 Cardura PO 4 mg DAILY SOL Administration Famotidine 20 mg 04/13/19 22:00 04/17/19 10:24 Pepcid PO 20 mg DAILY SOL Administration Folic Acid 1 mg 04/17/19 10:00 04/17/19 10:23 Folvite PO 1 mg QDAY SOL Administration Hydralazine HCl 10 mg 04/13/19 15:40 04/16/19 14:49 Apresoline IV 10 mg Q3HR PRN Administration Hypertension Sodium Chloride 1,000 mls @ 125 mls/hr 04/16/19 16:00 04/17/19 10:30 Nacl 0.45% 1000 Ml IV 125 mls/hr DIRECT SOL Administration Insulin Human Lispro 0 unit 04/14/19 07:30 04/17/19 12:25 Humalog SUB-Q Not Given ACHS SOL Protocol Labetalol HCl 10 mg 04/16/19 09:23 Labetalol IV Q4H PRN Blood Pressure Losartan Potassium 100 mg 04/13/19 17:00 04/17/19 10:23 Cozaar PO 100 mg QDAY SOL Administration Metoprolol Tartrate 100 mg 04/15/19 15:00 04/17/19 10:17 Metoprolol PO 100 mg BID SOL Administration Ondansetron HCl 4 mg 04/13/19 16:16 Zofran IV Q8H PRN Nausea And Vomiting Oxycodone/Acetaminophen 1 tab 04/13/19 16:13 Percocet 5/325 PO Q6H PRN Pain, Moderate (4-6) Pravastatin Sodium 80 mg 04/13/19 22:00 04/16/19 22:03 Pravachol PO 80 mg QHS SOL Administration Sodium Chloride 10 ml 04/13/19 22:00 04/17/19 10:24 Sodium Chloride Flush Syringe 10 Ml IV 10 ml BID SOL Administration Sodium Chloride 10 ml 04/14/19 09:00 Sodium Chloride Flush Syringe 10 Ml IV PRN PRN LINE FLUSH Thiamine HCl 100 mg 04/17/19 10:00 04/17/19 10:25 Vitamin B-1 PO 100 mg QDAY SOL Administration
[2019-04-17 18:50] LABS: Bacteria,Urine 1+ /HPF (Negative); Bilirubin,Urine NEG (Negative); Blood,Urine SM (Negative); Color,Urine Yellow (Yellow); Mucus,Urine FEW /HPF; Urobilinogen,Urine < 2.0 mg/dL (<2.0)
[2019-04-17] MEDS: PRAVASTATIN 80 MG TAB PO SCH (23:10)
[2019-04-18 04:36] LABS: Calcium 8.1 mg/dL (8.4-10.2)
[2019-04-18] MEDS: SODIUM CHLORIDE 0.45% 1000 ML 1,000 ML IV SCH ×2 (06:37→22:03)
[2019-04-18] MEDS: INSULIN LISPRO 100 UNIT/ML SUB-Q SCH ×4 (08:25→22:10)
--- NOTE | 2019-04-18 08:34 | Progress Note ---
Assessment and Plan - Patient Problems (1) Acute renal failure Current Visit: Yes Status: Acute Qualifiers: Acute renal failure type: unspecified Qualified Code(s): N17.9 - Acute kidney failure, unspecified Plan to address problem: UA noted with microscopic hematuria. Will also had workup for GN etiologies including complement levels and ANCA vasculitis studies. However is likely that he has chronic kidney disease secondary likely to hypertension diabetes. Overall renal function remains stable at this time. We'll continue to monitor closely (2) Hypertensive chronic kidney disease with stage 1 through stage 4 chronic kidney disease, or unspecified chronic kidney disease Current Visit: Yes Status: Chronic Plan to address problem: Blood pressure is becoming better managed. Would consider to wean down on his half normal saline to avoid extra sodium loading in this patient with signifi cant hypertensive kidney disease. (3) Hypernatremia Current Visit: Yes Status: Acute Plan to address problem: Improved with current hydration. Would suggest to decrease rate of IV fluids given his hypertension. (4) Type 2 diabetes mellitus with hyperglycemia Current Visit: Yes Status: Acute Plan to address problem: Management per primary team. (5) Altered mental status Current Visit: Yes Status: Acute Plan to address problem: Patient is alert this morning and answering questions. We'll continue to monitor closely Subjective Principal diagnosis: confusion and shuffling gait X 2-3 months ? Interval history: No acute issues or changes overnight. Labs reviewed and renal function remain stable. Blood pressure is better controlled then initial admission. Objective - Vital Signs Vital signs: Vital Signs - 12hr 04/17/19 04/18/19 04/18/19 23:10 01:17 01:36 Temperature 98.3 F Pulse Rate 75 73 Respiratory 20 Rate Blood Pressure 134/71 149/61 O2 Sat by Pulse 93 Oximetry 04/18/19 04/18/19 07:45 07:46 Temperature Pulse Rate 75 72 Respiratory 18 Rate Blood Pressure 154/87 O2 Sat by Pulse 100 97 Oximetry - General Appearance General appearance: well-developed, well-nourished, appears stated age EENT: ATNC, PERRL Neck: no JVD, no thyromegaly Respiratory: Present: Clear to Ascultation, Normal Exam Cardiology: regular, S1S2 Gastrointestinal: normal, normoactive bowel sounds Integumentary: no rash, warm and dry Neurologic: no focal deficit Musculoskeletal: deferred Psychiatric: cooperative - Lab 04/14/19 04:09 04/18/19 03:40 Most recent lab results Calcium 8.1 mg/dL (8.4-10.2) L 04/18/19 03:40 Magnesium 1.80 mg/dL (1.7-2.3) 04/17/19 08:36 Urine Creatinine 94.7 mg/dL (0.1-20.0) H 04/15/19 01:40 Urine Sodium 72 mmol/L 04/15/19 01:40 Urine Total Protein 374 mg/dL (5-11.8) H 04/15/19 01:40 - Allied health notes Allied health notes reviewed: nursing Medications & Allergies - Medications Allergies/Adverse Reactions: Allergies No Known Allergies Allergy (Verified 07/11/13 22:02) Home Medications: Home Medications Medication Instructions Recorded Confirmed Last Taken Type Amlodipine Besylate [Norvasc] 10 mg PO QPM 07/12/13 04/13/19 07/11/13 19:30 History 10 mg Doxazosin [Cardura] 2 mg PO QHS 07/12/13 04/13/19 07/11/13 19:30 History 1 mg Losartan [Cozaar] 100 mg PO QDAY 07/12/13 04/13/19 07/10/13 History 50 mg Metoprolol [Lopressor TAB] 25 mg PO BID 07/12/13 04/13/19 07/11/13 19:30 History 25 mg Simvastatin 40 mg PO QHS 07/06/15 04/13/19 Unknown History Clopidogrel [Plavix] 75 mg PO QDAY 04/13/19 04/13/19 Unknown History NIFEdipine [Nifedipine ER] 90 mg PO QDAY 04/13/19 04/13/19 Unknown History Active Medications: Generic Name Dose Route Start Last Admin Trade Name Freq PRN Reason Stop Dose Admin Acetaminophen 650 mg 04/13/19 16:16 Tylenol PO Q4H PRN Pain MILD(1-3)/Fever >100.5/CUEVA Amlodipine Besylate 10 mg 04/16/19 15:00 04/17/19 10:18 Amlodipine PO 10 mg QDAY SOL Administration Aspirin 81 mg 04/15/19 10:00 04/17/19 10:17 Baby Aspirin PO 81 mg QDAY SOL Administration Clopidogrel Bisulfate 75 mg 04/13/19 17:00 04/17/19 10:17 Plavix PO 75 mg QDAY SOL Administration Dextrose 0 ml 04/14/19 01:26 04/15/19 16:23 D50w (25gm) Syringe IV 10 ml Q30MIN PRN Administration Hypoglycemia Protocol Doxazosin Mesylate 4 mg 04/16/19 15:00 04/17/19 10:23 Cardura PO 4 mg DAILY SOL Administration Famotidine 20 mg 04/13/19 22:00 04/17/19 10:24 Pepcid PO 20 mg DAILY SOL Administration Folic Acid 1 mg 04/17/19 10:00 04/17/19 10:23 Folvite PO 1 mg QDAY SOL Administration Hydralazine HCl 10 mg 04/13/19 15:40 04/16/19 14:49 Apresoline IV 10 mg Q3HR PRN Administration Hypertension Sodium Chloride 1,000 mls @ 125 mls/hr 04/16/19 16:00 04/18/19 06:37 Nacl 0.45% 1000 Ml IV 125 mls/hr DIRECT SOL Administration Insulin Human Lispro 0 unit 04/14/19 07:30 04/17/19 23:14 Humalog SUB-Q Not Given ACHS SOL Protocol Labetalol HCl 10 mg 04/16/19 09:23 Labetalol IV Q4H PRN Blood Pressure Losartan Potassium 100 mg 04/13/19 17:00 04/17/19 10:23 Cozaar PO 100 mg QDAY SOL Administration Metoprolol Tartrate 100 mg 04/15/19 15:00 04/17/19 23:10 Metoprolol PO 100 mg BID SOL Administration Ondansetron HCl 4 mg 04/13/19 16:16 Zofran IV Q8H PRN Nausea And Vomiting Oxycodone/Acetaminophen 1 tab 04/13/19 16:13 Percocet 5/325 PO Q6H PRN Pain, Moderate (4-6) Pravastatin Sodium 80 mg 04/13/19 22:00 04/17/19 23:10 Pravachol PO 80 mg QHS SOL Administration Sodium Chloride 10 ml 04/13/19 22:00 04/17/19 23:13 Sodium Chloride Flush Syringe 10 Ml IV 10 ml BID SOL Administration Sodium Chloride 10 ml 04/14/19 09:00 Sodium Chloride Flush Syringe 10 Ml IV PRN PRN LINE FLUSH Thiamine HCl 100 mg 04/17/19 10:00 04/17/19 10:25 Vitamin B-1 PO 100 mg QDAY SOL Administration
[2019-04-18] MEDS: CLOPIDOGREL 75 MG TAB PO SCH ×2 (09:28→09:30)
[2019-04-18] MEDS: FAMOTIDINE 20 MG TAB PO SCH ×2 (09:28→09:30)
[2019-04-18] MEDS: DOXAZOSIN 1 MG TAB PO SCH ×2 (09:28→09:30)
[2019-04-18] MEDS: LOSARTAN 50 MG TAB PO SCH ×2 (09:28→09:30)
[2019-04-18] MEDS: THIAMINE 100 MG TAB PO SCH ×2 (09:28→09:30)
[2019-04-18] MEDS: METOPROLOL TARTRATE 100 MG TAB PO SCH ×3 (09:29→22:03)
[2019-04-18] MEDS: ASPIRIN 81 MG TAB CHEW PO SCH ×2 (09:29→09:30)
[2019-04-18] MEDS: FOLIC ACID 1 MG TAB PO SCH ×2 (09:29→09:30)
[2019-04-18] MEDS: amLODIPine 10 MG TAB PO SCH ×2 (09:29→09:30)
--- NOTE | 2019-04-18 10:52 | Progress Note ---
Assessment and Plan Assessment and plan: Pt is a 63 y/o AAM admitted for LUIS and hypertensive urgency. On 04/14, code stroke was called bs he was noted to be non-verbal and confused. Head CT scan done was neg. ataxia/Aphasia, r/o acute stroke -cont asa, plavix and statin -CT head neg -MRI head and cervical spine pending r/o cva or NPH per neurology -Echo neg for foramen ovale contratry to what was previously documented -Neurology following LUIS vs ckd -probably vasomotor nephropathy upon ckd -On IVF -Renal US neg for hydronephrosis -nephrology following, cr stable Acute metabolic encephalopathy -improving -head CT scan neg, still need to r/o NPH Hypertensive urgency improving cont BP meds Hypernatremia resolved w IVF Elevated troponin -probably demand ischemia due to acute kidney injury -troponin levels trended down -echo showed EF of 55-60% without wall motion abnormalities, neg for PFO DM type 2 with hyperglycemia, now hypoglycemia -Continue SSI and hypoglycemic protocol -A1c: 10.1 Hypokalemia -repleted, will monitor level -will check mg level AOCD -H/H stable HLD -cont statin DVT Prophylaxis -SCDs while patient in bed -[facility] The Previously listed phone number for his children was incorrect. Staff have now reached his children. Unfortunately the children do not know the father's full medical history, and we are unable to fill out the MRI safety sheets. Neurology consulted, to see if other modalities would be as effective Hospitalist Physical - Constitutional Vitals: Temp Pulse Resp BP Pulse Ox 98.3 F 75 18 154/87 97 04/18/19 01:17 04/18/19 09:29 04/18/19 07:45 04/18/19 09:29 04/18/19 07:46 General appearance: Present: no acute distress Results - Labs CBC & Chem 7: 04/14/19 04:09 04/18/19 03:40 Labs: Laboratory Last Values WBC 6.5 K/mm3 (4.5-11.0) 04/14/19 04:09 RBC 4.40 M/mm3 (3.65-5.03) 04/14/19 04:09 Hgb 11.1 gm/dl (11.8-15.2) L 04/14/19 04:09 Hct 32.9 % (35.5-45.6) L 04/14/19 04:09 MCV 75 fl (84-94) L 04/14/19 04:09 MCH 25 pg (28-32) L 04/14/19 04:09 MCHC 34 % (32-34) 04/14/19 04:09 RDW 16.0 % (13.2-15.2) H 04/14/19 04:09 Plt Count 200 K/mm3 (140-440) 04/14/19 04:09 Lymph % (Auto) 23.7 % (13.4-35.0) 04/14/19 04:09 [place] % (Auto) 9.0 % (0.0-7.3) H 04/14/19 04:09 Eos % (Auto) 1.3 % (0.0-4.3) 04/14/19 04:09 Baso % (Auto) 0.5 % (0.0-1.8) 04/14/19 04:09 Lymph # 1.5 K/mm3 (1.2-5.4) 04/14/19 04:09 [place] # 0.6 K/mm3 (0.0-0.8) 04/14/19 04:09 Eos # 0.1 K/mm3 (0.0-0.4) 04/14/19 04:09 Baso # 0.0 K/mm3 (0.0-0.1) 04/14/19 04:09 Seg Neutrophils % 65.5 % (40.0-70.0) 04/14/19 04:09 Seg Neutrophils # 4.2 K/mm3 (1.8-7.7) 04/14/19 04:09 PT 13.5 Sec. (12.2-14.9) 04/13/19 12:00 INR 1.04 (0.87-1.13) 04/13/19 12:00 APTT 26.6 Sec. (24.2-36.6) 04/13/19 12:00 Sodium 140 mmol/L (137-145) 04/18/19 03:40 Potassium 3.9 mmol/L (3.6-5.0) 04/18/19 03:40 Chloride 110.5 mmol/L (98-107) H 04/18/19 03:40 Carbon Dioxide 18 mmol/L (22-30) L 04/18/19 03:40 Anion Gap 15 mmol/L 04/18/19 03:40 BUN 41 mg/dL (9-20) H 04/18/19 03:40 Creatinine 2.8 mg/dL (0.8-1.5) H 04/18/19 03:40 Estimated GFR 28 ml/min 04/18/19 03:40 BUN/Creatinine Ratio 15 % 04/18/19 03:40 Glucose 119 mg/dL (75-100) H 04/18/19 03:40 POC Glucose 139 (70-105) H 04/18/19 07:56 Hemoglobin A1c 10.1 % (4-6) H 04/13/19 19:07 Calcium 8.1 mg/dL (8.4-10.2) L 04/18/19 03:40 Magnesium 1.80 mg/dL (1.7-2.3) 04/17/19 08:36 Total Bilirubin 0.30 mg/dL (0.1-1.2) 04/14/19 04:09 AST 11 units/L (5-40) 04/14/19 04:09 ALT 7 units/L (7-56) 04/14/19 04:09 Alkaline Phosphatase 88 units/L (35-129) 04/14/19 04:09 Troponin T 0.035 ng/mL (0.00-0.029) H 04/14/19 09:21 NT-Pro-B Natriuret Pep 1384 pg/mL (0-900) H 04/13/19 12:00 Total Protein 5.8 g/dL (6.3-8.2) L 04/14/19 04:09 Albumin 3.0 g/dL (3.9-5) L 04/14/19 04:09 Albumin/Globulin Ratio 1.1 % 04/14/19 04:09 Triglycerides 108 mg/dL (2-149) 04/13/19 12:00 Cholesterol 199 mg/dL (50-199) 04/13/19 12:00 LDL Cholesterol Direct 125 mg/dL (50-130) 04/13/19 12:00 HDL Cholesterol 65 mg/dL (40-59) H 04/13/19 12:00 Cholesterol/HDL Ratio 3.06 % 04/13/19 12:00 Vitamin B12 804.1 pg/mL (211-911) 04/14/19 15:52 Folate 10.73 ng/mL (7.3-26.0) 04/14/19 15:52 Urine Color Yellow (Yellow) 04/17/19 18:30 Urine Turbidity Slightly-cloudy (Clear) 04/17/19 18:30 Urine pH 5.0 (5.0-7.0) 04/17/19 18:30 Ur Specific [place] 1.013 (1.003-1.030) 04/17/19 18:30 Urine Protein 100 mg/dl mg/dL (Negative) 04/17/19 18:30 Urine Glucose (UA) 50 mg/dL (Negative) 04/17/19 18:30 Urine Ketones Neg mg/dL (Negative) 04/17/19 18:30 Urine Blood Sm (Negative) 04/17/19 18:30 Urine Nitrite Neg (Negative) 04/17/19 18:30 Urine Bilirubin Neg (Negative) 04/17/19 18:30 Urine Urobilinogen < 2.0 mg/dL (<2.0) 04/17/19 18:30 Ur Leukocyte Esterase Neg (Negative) 04/17/19 18:30 Urine WBC (Auto) 4.0 /HPF (0.0-6.0) 04/17/19 18:30 Urine RBC (Auto) 5.0 /HPF (0.0-6.0) 04/17/19 18:30 U Epithel Cells (Auto) < 1.0 /HPF (0-13.0) 04/17/19 18:30 Urine Bacteria (Auto) 1+ /HPF (Negative) 04/17/19 18:30 Urine Mucus Few /HPF 04/17/19 18:30 Urine Yeast (Budding) 2+ /HPF 04/17/19 18:30 Urine Creatinine 94.7 mg/dL (0.1-20.0) H 04/15/19 01:40 Urine Sodium 72 mmol/L 04/15/19 01:40 Urine Total Protein 374 mg/dL (5-11.8) H 04/15/19 01:40 Hepatitis A IgM Ab Non-reactive (NonReactive) 04/14/19 12:52 Hep Bs Antigen Non-reactive (Negative) 04/14/19 12:52 Hep B Core IgM Ab Non-reactive (NonReactive) 04/14/19 12:52 Hepatitis C Antibody Non-reactive (NonReactive) 04/14/19 12:52 Active Medications - Current Medications Current Medications: Generic Name Dose Route Start Last Admin Trade Name Freq PRN Reason Stop Dose Admin Acetaminophen 650 mg 04/13/19 16:16 Tylenol PO Q4H PRN Pain MILD(1-3)/Fever >100.5/CUEVA Amlodipine Besylate 10 mg 04/16/19 15:00 04/18/19 09:29 Amlodipine PO 10 mg QDAY SOL Administration Aspirin 81 mg 04/15/19 10:00 04/18/19 09:29 Baby Aspirin PO 81 mg QDAY SOL Administration Clopidogrel Bisulfate 75 mg 04/13/19 17:00 04/18/19 09:28 Plavix PO 75 mg QDAY SOL Administration Dextrose 0 ml 04/14/19 01:26 04/15/19 16:23 D50w (25gm) Syringe IV 10 ml Q30MIN PRN Administration Hypoglycemia Protocol Doxazosin Mesylate 4 mg 04/16/19 15:00 04/18/19 09:28 Cardura PO 4 mg DAILY SOL Administration Famotidine 20 mg 04/13/19 22:00 04/18/19 09:28 Pepcid PO 20 mg DAILY SOL Administration Folic Acid 1 mg 04/17/19 10:00 04/18/19 09:29 Folvite PO 1 mg QDAY SOL Administration Hydralazine HCl 10 mg 04/13/19 15:40 04/16/19 14:49 Apresoline IV 10 mg Q3HR PRN Administration Hypertension Sodium Chloride 1,000 mls @ 125 mls/hr 04/16/19 16:00 04/18/19 06:37 Nacl 0.45% 1000 Ml IV 125 mls/hr DIRECT SOL Administration Insulin Human Lispro 0 unit 04/14/19 07:30 04/17/19 23:14 Humalog SUB-Q Not Given ACHS SOL Protocol Labetalol HCl 10 mg 04/16/19 09:23 Labetalol IV Q4H PRN Blood Pressure Losartan Potassium 100 mg 04/13/19 17:00 04/18/19 09:28 Cozaar PO 100 mg QDAY SOL Administration Metoprolol Tartrate 100 mg 04/15/19 15:00 04/18/19 09:29 Metoprolol PO 100 mg BID SOL Administration Ondansetron HCl 4 mg 04/13/19 16:16 Zofran IV Q8H PRN Nausea And Vomiting Oxycodone/Acetaminophen 1 tab 04/13/19 16:13 Percocet 5/325 PO Q6H PRN Pain, Moderate (4-6) Pravastatin Sodium 80 mg 04/13/19 22:00 04/17/19 23:10 Pravachol PO 80 mg QHS SOL Administration Sodium Chloride 10 ml 04/13/19 22:00 04/18/19 09:30 Sodium Chloride Flush Syringe 10 Ml IV 10 ml BID SOL Administration Sodium Chloride 10 ml 04/14/19 09:00 Sodium Chloride Flush Syringe 10 Ml IV PRN PRN LINE FLUSH Thiamine HCl 100 mg 04/17/19 10:00 04/18/19 09:28 Vitamin B-1 PO 100 mg QDAY SOL Administration
--- NOTE | 2019-04-18 11:37 | Vascular Lab Report ---
"DUPLEX DOPPLER ULTRASOUND CAROTID, BILATERAL INDICATION: confusion unsteady gait , baldder incont, NPH. FINDINGS: RIGHT CAROTID: No significant atherosclerotic plaque. Right ICA peak systolic velocity: 65 cm/sec. Right Vertebral Artery: Antegrade flow. LEFT CAROTID: No significant atherosclerotic plaque. Left ICA peak systolic velocity: 92 cm/sec. Left Vertebral Artery: Antegrade flow. IMPRESSION: 1. Right Internal Carotid Artery: Less than 50% diameter stenosis. 2. Left Internal Carotid Artery: Less than 50% diameter stenosis. Velocity criteria are extrapolated from diameter data as defined by the Society of Radiologists in Ul trasound Consensus Conference, Radiology 2003; 229;340-346. Degree of Stenosis (%) || ICA PSV (cm/sec) || Plaque estimate (%) || ICA/CCA PSV Ratio Normal <125 None <2.0 <50 <125 <50 <2.0 50-69 125-230 50 2.0-4.0 70 but less than 100 >230 50 >4.0 Near occlusion High, low, or none visible variable Total occlusion None visible; no lumen N/A Signer Name: Will Shaffer MD Signed: 04/18/2019 11:33 AM Workstation Name: [id number]"
[2019-04-18] MEDS: PRAVASTATIN 80 MG TAB PO SCH (22:02)
[2019-04-19] MEDS: INSULIN LISPRO 100 UNIT/ML SUB-Q SCH ×3 (07:38→16:22)
[2019-04-19] MEDS: hydrALAZINE 20 MG/1 ML INJ IV PRN (08:16)
--- NOTE | 2019-04-19 08:31 | Progress Note ---
Assessment and Plan - Patient Problems (1) Acute renal failure Current Visit: Yes Status: Acute Qualifiers: Acute renal failure type: unspecified Qualified Code(s): N17.9 - Acute kidney failure, unspecified Plan to address problem: UA noted with microscopic hematuria. Will also had workup for GN etiologies including complement levels and ANCA vasculitis studies. However is likely that he has chronic kidney disease secondary likely to hypertension diabetes. Overall renal function remains stable at this time. Pending labs this morning. (2) Hypertensive chronic kidney disease with stage 1 through stage 4 chronic kidney disease, or unspecified chronic kidney disease Current Visit: Yes Status: Chronic Plan to address problem: We'll discontinue standing IV fluids at this time. Continue to monitor closely on current regimen. (3) Hypernatremia Current Visit: Yes Status: Acute Plan to address problem: Improved with current hydration. We'll discontinue D5 half-normal saline at this time. (4) Type 2 diabetes mellitus with hyperglycemia Current Visit: Yes Status: Acute Plan to address problem: Management per primary team. (5) Altered mental status Current Visit: Yes Status: Acute Plan to address problem: Patient is alert this morning and answering questions. We'll continue to monitor closely Subjective Date of service: 04/19/19 Principal diagnosis: confusion and shuffling gait X 2-3 months ? Interval history: Patient seen this morning. No acute changes overnight. Labs pending this morning. Renal function has been stable for the last 2-3 days while inpatient. Objective - Vital Signs Vital signs: Vital Signs - 12hr 04/19/19 04/19/19 04/19/19 03:04 03:54 07:23 Temperature 98.4 F 98.2 F Pulse Rate 99 H 99 H 91 H Respiratory 18 18 Rate Blood Pressure 171/82 171/82 189/87 O2 Sat by Pulse 100 97 Oximetry 04/19/19 08:16 Temperature Pulse Rate 91 H Respiratory Rate Blood Pressure 189/87 O2 Sat by Pulse Oximetry - General Appearance General appearance: well-developed, well-nourished, appears stated age EENT: ATNC, PERRL Neck: no JVD, no thyromegaly Respiratory: Present: Clear to Ascultation, Normal Exam Cardiology: regular, S1S2 Gastrointestinal: normal, normoactive bowel sounds Integumentary: no rash, warm and dry Neurologic: no focal deficit Musculoskeletal: deferred Psychiatric: mood/affect appropriate, cooperative - Lab 04/14/19 04:09 04/18/19 03:40 Most recent lab results Calcium 8.1 mg/dL (8.4-10.2) L 04/18/19 03:40 Magnesium 1.80 mg/dL (1.7-2.3) 04/17/19 08:36 Urine Creatinine 94.7 mg/dL (0.1-20.0) H 04/15/19 01:40 Urine Sodium 72 mmol/L 04/15/19 01:40 Urine Total Protein 374 mg/dL (5-11.8) H 04/15/19 01:40 - Imaging Chest x-ray: report reviewed - Allied health notes Allied health notes reviewed: nursing Medications & Allergies - Medications Allergies/Adverse Reactions: Allergies No Known Allergies Allergy (Verified 07/11/13 22:02) Home Medications: Home Medications Medication Instructions Recorded Confirmed Last Taken Type Amlodipine Besylate [Norvasc] 10 mg PO QPM 07/12/13 04/13/19 07/11/13 19:30 History 10 mg Doxazosin [Cardura] 2 mg PO QHS 07/12/13 04/13/19 07/11/13 19:30 History 1 mg Losartan [Cozaar] 100 mg PO QDAY 07/12/13 04/13/19 07/10/13 History 50 mg Metoprolol [Lopressor TAB] 25 mg PO BID 07/12/13 04/13/19 07/11/13 19:30 History 25 mg Simvastatin 40 mg PO QHS 07/06/15 04/13/19 Unknown History Clopidogrel [Plavix] 75 mg PO QDAY 04/13/19 04/13/19 Unknown History NIFEdipine [Nifedipine ER] 90 mg PO QDAY 04/13/19 04/13/19 Unknown History Active Medications: Generic Name Dose Route Start Last Admin Trade Name Freq PRN Reason Stop Dose Admin Acetaminophen 650 mg 04/13/19 16:16 Tylenol PO Q4H PRN Pain MILD(1-3)/Fever >100.5/CUEVA Amlodipine Besylate 10 mg 04/16/19 15:00 04/18/19 09:30 Amlodipine PO Not Given QDAY [facility] Aspirin 81 mg 04/15/19 10:00 04/18/19 09:30 Baby Aspirin PO Not Given QDAY [facility] Clopidogrel Bisulfate 75 mg 12/04/19 17:00 04/18/19 09:30 Plavix PO Not Given QDAY [facility] Dextrose 0 ml 04/14/19 01:26 04/15/19 16:23 D50w (25gm) Syringe IV 10 ml Q30MIN PRN Administration Hypoglycemia Protocol Doxazosin Mesylate 4 mg 04/16/19 15:00 04/18/19 09:30 Cardura PO Not Given DAILY [facility] Famotidine 20 mg 04/13/19 22:00 04/18/19 09:30 Pepcid PO Not Given DAILY [facility] Folic Acid 1 mg 04/17/19 10:00 04/18/19 09:30 Folvite PO Not Given QDAY [facility] Hydralazine HCl 10 mg 04/13/19 15:40 04/19/19 08:16 Apresoline IV 10 mg Q3HR PRN Administration Hypertension Insulin Human Lispro 0 unit 04/14/19 07:30 04/19/19 07:38 Humalog SUB-Q Not Given [facility] Protocol Labetalol HCl 10 mg 04/16/19 09:23 04/19/19 03:54 Labetalol IV 10 mg Q4H PRN Administration Blood Pressure Losartan Potassium 100 mg 04/13/19 17:00 04/18/19 09:30 Cozaar PO Not Given QDAY [facility] Metoprolol Tartrate 100 mg 04/15/19 15:00 04/18/19 22:03 Metoprolol PO 100 mg BID [facility] Administration Ondansetron HCl 4 mg 04/13/19 16:16 Zofran IV Q8H PRN Nausea And Vomiting Oxycodone/Acetaminophen 1 tab 04/13/19 16:13 Percocet 5/325 PO Q6H PRN Pain, Moderate (4-6) Pravastatin Sodium 80 mg 04/13/19 22:00 04/18/19 22:02 Pravachol PO 80 mg QHS [facility] Administration Sodium Chloride 10 ml 04/13/19 22:00 04/18/19 22:04 Sodium Chloride Flush Syringe 10 Ml IV 10 ml BID SOL Administration Sodium Chloride 10 ml 04/14/19 09:00 Sodium Chloride Flush Syringe 10 Ml IV PRN PRN LINE FLUSH Thiamine HCl 100 mg 04/17/19 10:00 04/18/19 09:30 Vitamin B-1 PO Not Given QDAY [facility]
[2019-04-19] MEDS ORDERED: hydrALAZINE 100 MG TAB PO SCH ×2 (08:36→08:37)
[2019-04-19] MEDS ORDERED: hydrALAZINE 25 MG TAB PO SCH (09:00)
[2019-04-19] MEDS ORDERED: SODIUM CHLORIDE 0.45% 1000 ML 1,000 ML IV SCH (09:00)
[2019-04-19] MEDS: hydrALAZINE 25 MG TAB PO SCH ×2 (09:30→13:52)
[2019-04-19] MEDS: FAMOTIDINE 20 MG TAB PO SCH (09:31)
[2019-04-19] MEDS: CLOPIDOGREL 75 MG TAB PO SCH (09:31)
[2019-04-19] MEDS: amLODIPine 10 MG TAB PO SCH (09:31)
[2019-04-19] MEDS: DOXAZOSIN 1 MG TAB PO SCH (09:31)
[2019-04-19] MEDS: THIAMINE 100 MG TAB PO SCH (09:31)
[2019-04-19] MEDS: FOLIC ACID 1 MG TAB PO SCH (09:31)
[2019-04-19] MEDS: ASPIRIN 81 MG TAB CHEW PO SCH (09:31)
[2019-04-19] MEDS: LOSARTAN 50 MG TAB PO SCH (09:31)
[2019-04-19] MEDS: METOPROLOL TARTRATE 100 MG TAB PO SCH (09:32)
--- NOTE | 2019-04-19 10:51 | Progress Note ---
Assessment and Plan Assessment and plan: Pt is a 63 y/o AAM admitted for LUIS and hypertensive urgency. On 04/14, code stroke was called bs he was noted to be non-verbal and confused. Head CT scan done was neg. Ataxia/Aphasia, r/o acute stroke v NPH -cont asa, plavix and statin -CT head neg -MRI head and cervical spine pending -Echo showed EF of 55-60% -Neurology following LUIS vs ckd -probably vasomotor nephropathy due to uncontrolled HTN on CKD -On IVF, will monitor -Renal US neg for hydronephrosis -nephrology following Acute metabolic encephalopathy -improved -head CT scan neg, still need to r/o NPH Hypertensive urgency -BP still uncontrolled -cont amlodipine, cardura, cozaar and metoprolol -will add oral hydralazine, adjust as needed Hypernatremia -resolved w IVF Elevated troponin -probably demand ischemia due to acute kidney injury -troponin levels trended down -echo showed EF of 55-60% without wall motion abnormalities, neg for PFO DM type 2 with hyperglycemia/hypoglycemia -Continue SSI and hypoglycemic protocol -A1c: 10.1 Hypokalemia -repleted and improved AOCD -H/H stable HLD -cont statin DVT Prophylaxis -SCDs while patient in bed -Lovenox Disp: MRI brain and cervical spine was cancelled again after multiple attempts bs per report, pt's family stated that he had a stent placement yrs ago. Type and site is unknown and due to pt's safety, it's unable to be done until verified. Neurology to review for further recommendations. History Interval history: Pt has no new complaints. He denies headaches, n/v. Hospitalist Physical - Constitutional Vitals: Temp Pulse Resp BP Pulse Ox 98.2 F 92 H 18 160/67 97 04/19/19 07:23 04/19/19 09:32 04/19/19 10:00 04/19/19 09:32 04/19/19 10:00 General appearance: Present: no acute distress - EENT Eyes: Present: PERRL, EOM intact ENT: hearing intact, clear oral mucosa - Neck Neck: Present: supple - Respiratory Respiratory effort: normal Respiratory: bilateral: CTA - Cardiovascular Rhythm: regular Heart Sounds: Present: S1 & S2 - Extremities Extremities: No edema - Abdominal General gastrointestinal: soft, non-tender, normal bowel sounds - Integumentary Integumentary: Present: warm, dry - Psychiatric Psychiatric: appropriate mood/affect - Neurologic Neurologic: moves all extremities Results - Labs CBC & Chem 7: 04/14/19 04:09 04/18/19 03:40 Labs: Laboratory Last Values WBC 6.5 K/mm3 (4.5-11.0) 04/14/19 04:09 RBC 4.40 M/mm3 (3.65-5.03) 04/14/19 04:09 Hgb 11.1 gm/dl (11.8-15.2) L 04/14/19 04:09 Hct 32.9 % (35.5-45.6) L 04/14/19 04:09 MCV 75 fl (84-94) L 04/14/19 04:09 MCH 25 pg (28-32) L 04/14/19 04:09 MCHC 34 % (32-34) 04/14/19 04:09 RDW 16.0 % (13.2-15.2) H 04/14/19 04:09 Plt Count 200 K/mm3 (140-440) 04/14/19 04:09 Lymph % (Auto) 23.7 % (13.4-35.0) 04/14/19 04:09 [place] % (Auto) 9.0 % (0.0-7.3) H 04/14/19 04:09 Eos % (Auto) 1.3 % (0.0-4.3) 04/14/19 04:09 Baso % (Auto) 0.5 % (0.0-1.8) 04/14/19 04:09 Lymph # 1.5 K/mm3 (1.2-5.4) 04/14/19 04:09 [place] # 0.6 K/mm3 (0.0-0.8) 04/14/19 04:09 Eos # 0.1 K/mm3 (0.0-0.4) 04/14/19 04:09 Baso # 0.0 K/mm3 (0.0-0.1) 04/14/19 04:09 Seg Neutrophils % 65.5 % (40.0-70.0) 04/14/19 04:09 Seg Neutrophils # 4.2 K/mm3 (1.8-7.7) 04/14/19 04:09 PT 13.5 Sec. (12.2-14.9) 04/13/19 12:00 INR 1.04 (0.87-1.13) 04/13/19 12:00 APTT 26.6 Sec. (24.2-36.6) 04/13/19 12:00 Sodium 140 mmol/L (137-145) 04/18/19 03:40 Potassium 3.9 mmol/L (3.6-5.0) 04/18/19 03:40 Chloride 110.5 mmol/L (98-107) H 04/18/19 03:40 Carbon Dioxide 18 mmol/L (22-30) L 04/18/19 03:40 Anion Gap 15 mmol/L 04/18/19 03:40 BUN 41 mg/dL (9-20) H 04/18/19 03:40 Creatinine 2.8 mg/dL (0.8-1.5) H 04/18/19 03:40 Estimated GFR 28 ml/min 04/18/19 03:40 BUN/Creatinine Ratio 15 % 04/18/19 03:40 Glucose 119 mg/dL (75-100) H 04/18/19 03:40 POC Glucose 143 (70-105) H 04/19/19 07:28 Hemoglobin A1c 10.1 % (4-6) H 04/13/19 19:07 Calcium 8.1 mg/dL (8.4-10.2) L 04/18/19 03:40 Magnesium 1.80 mg/dL (1.7-2.3) 04/17/19 08:36 Total Bilirubin 0.30 mg/dL (0.1-1.2) 04/14/19 04:09 AST 11 units/L (5-40) 04/14/19 04:09 ALT 7 units/L (7-56) 04/14/19 04:09 Alkaline Phosphatase 88 units/L (35-129) 04/14/19 04:09 Troponin T 0.035 ng/mL (0.00-0.029) H 04/14/19 09:21 NT-Pro-B Natriuret Pep 1384 pg/mL (0-900) H 04/13/19 12:00 Total Protein 5.8 g/dL (6.3-8.2) L 04/14/19 04:09 Albumin 3.0 g/dL (3.9-5) L 04/14/19 04:09 Albumin/Globulin Ratio 1.1 % 04/14/19 04:09 Triglycerides 108 mg/dL (2-149) 04/13/19 12:00 Cholesterol 199 mg/dL (50-199) 04/13/19 12:00 LDL Cholesterol Direct 125 mg/dL (50-130) 04/13/19 12:00 HDL Cholesterol 65 mg/dL (40-59) H 04/13/19 12:00 Cholesterol/HDL Ratio 3.06 % 04/13/19 12:00 Vitamin B12 804.1 pg/mL (211-911) 04/14/19 15:52 Folate 10.73 ng/mL (7.3-26.0) 04/14/19 15:52 Urine Color Yellow (Yellow) 04/17/19 18:30 Urine Turbidity Slightly-cloudy (Clear) 04/17/19 18:30 Urine pH 5.0 (5.0-7.0) 04/17/19 18:30 Ur Specific [place] 1.013 (1.003-1.030) 04/17/19 18:30 Urine Protein 100 mg/dl mg/dL (Negative) 04/17/19 18:30 Urine Glucose (UA) 50 mg/dL (Negative) 04/17/19 18:30 Urine Ketones Neg mg/dL (Negative) 04/17/19 18:30 Urine Blood Sm (Negative) 04/17/19 18:30 Urine Nitrite Neg (Negative) 04/17/19 18:30 Urine Bilirubin Neg (Negative) 04/17/19 18:30 Urine Urobilinogen < 2.0 mg/dL (<2.0) 04/17/19 18:30 Ur Leukocyte Esterase Neg (Negative) 04/17/19 18:30 Urine WBC (Auto) 4.0 /HPF (0.0-6.0) 04/17/19 18:30 Urine RBC (Auto) 5.0 /HPF (0.0-6.0) 04/17/19 18:30 U Epithel Cells (Auto) < 1.0 /HPF (0-13.0) 04/17/19 18:30 Urine Bacteria (Auto) 1+ /HPF (Negative) 04/17/19 18:30 Urine Mucus Few /HPF 04/17/19 18:30 Urine Yeast (Budding) 2+ /HPF 04/17/19 18:30 Urine Creatinine 94.7 mg/dL (0.1-20.0) H 04/15/19 01:40 Urine Sodium 72 mmol/L 04/15/19 01:40 Urine Total Protein 374 mg/dL (5-11.8) H 04/15/19 01:40 Hepatitis A IgM Ab Non-reactive (NonReactive) 04/14/19 12:52 Hep Bs Antigen Non-reactive (Negative) 04/14/19 12:52 Hep B Core IgM Ab Non-reactive (NonReactive) 04/14/19 12:52 Hepatitis C Antibody Non-reactive (NonReactive) 04/14/19 12:52 Active Medications - Current Medications Current Medications: Generic Name Dose Route Start Last Admin Trade Name Freq PRN Reason Stop Dose Admin Acetaminophen 650 mg 04/13/19 16:16 Tylenol PO Q4H PRN Pain MILD(1-3)/Fever >100.5/CUEVA Amlodipine Besylate 10 mg 04/16/19 15:00 04/19/19 09:31 Amlodipine PO 10 mg QDAY [facility] Administration Aspirin 81 mg 04/15/19 10:00 04/19/19 09:31 Baby Aspirin PO 81 mg QDAY [facility] Administration Clopidogrel Bisulfate 75 mg 04/13/19 17:00 04/19/19 09:31 Plavix PO 75 mg QDAY [facility] Administration Dextrose 0 ml 04/14/19 01:26 04/15/19 16:23 D50w (25gm) Syringe IV 10 ml Q30MIN PRN Administration Hypoglycemia Protocol Doxazosin Mesylate 4 mg 04/16/19 15:00 04/19/19 09:31 Cardura PO 4 mg DAILY SOL Administration Famotidine 20 mg 04/13/19 22:00 04/19/19 09:31 Pepcid PO 20 mg DAILY [facility] Administration Folic Acid 1 mg 04/17/19 10:00 04/19/19 09:31 Folvite PO 1 mg QDAY [facility] Administration Hydralazine HCl 10 mg 04/13/19 15:40 04/19/19 08:16 Apresoline IV 10 mg Q3HR PRN Administration Hypertension Hydralazine HCl 75 mg 04/19/19 09:00 04/19/19 09:30 Apresoline PO 75 mg TID SOL Administration Sodium Chloride 1,000 mls @ 42 mls/hr 04/19/19 09:00 Nacl 0.45% 1000 Ml IV DIRECT SOL Insulin Human Lispro 0 unit 04/14/19 07:30 04/19/19 07:38 Humalog SUB-Q Not Given ACHS [facility] Protocol Labetalol HCl 10 mg 04/16/19 09:23 04/19/19 03:54 Labetalol IV 10 mg Q4H PRN Administration Blood Pressure Losartan Potassium 100 mg 04/13/19 17:00 04/19/19 09:31 Cozaar PO 100 mg QDAY [facility] Administration Metoprolol Tartrate 100 mg 04/15/19 15:00 04/19/19 09:32 Metoprolol PO 100 mg BID SOL Administration Ondansetron HCl 4 mg 04/13/19 16:16 Zofran IV Q8H PRN Nausea And Vomiting Oxycodone/Acetaminophen 1 tab 04/13/19 16:13 Percocet 5/325 PO Q6H PRN Pain, Moderate (4-6) Pravastatin Sodium 80 mg 04/13/19 22:00 04/18/19 22:02 Pravachol PO 80 mg QHS SOL Administration Sodium Chloride 10 ml 04/13/19 22:00 04/19/19 09:38 Sodium Chloride Flush Syringe 10 Ml IV 10 ml BID SOL Administration Sodium Chloride 10 ml 04/14/19 09:00 Sodium Chloride Flush Syringe 10 Ml IV PRN PRN LINE FLUSH Thiamine HCl 100 mg 04/17/19 10:00 04/19/19 09:31 Vitamin B-1 PO 100 mg QDAY SOL Administration
[2019-04-19 11:08] LABS: Calcium 8.1 mg/dL (8.4-10.2)
--- NOTE | 2019-04-19 15:30 | Progress Note ---
Assessment and Plan Ataxia and confusion, r/o NPH Recommend: NPH is an outpatient work up. After patient leaves the hospital he can follow up with neurology for LP to see if gait is improved after fluid is removed and if so he can be referred to neurosurgery for shunt Continue care for all medical issues as you are doing Subjective Date of service: 04/19/19 Principal diagnosis: confusion and shuffling gait X 2-3 months ? Interval history: No new complaints. Objective - Vital Sign Vital Signs - 12hr 04/19/19 04/19/19 04/19/19 03:54 07:23 08:16 Temperature 98.2 F Pulse Rate 99 H 91 H 91 H Respiratory 18 Rate Blood Pressure 171/82 189/87 189/87 O2 Sat by Pulse 97 Oximetry 04/19/19 04/19/19 04/19/19 09:30 09:32 10:00 Temperature Pulse Rate 92 H 92 H Respiratory 18 Rate Blood Pressure 160/67 160/67 O2 Sat by Pulse 97 Oximetry 04/19/19 04/19/19 13:03 13:52 Temperature 98.8 F Pulse Rate 70 70 Respiratory 18 Rate Blood Pressure 126/61 126/61 O2 Sat by Pulse 98 Oximetry - General Apperance Constitutional: comfortable - EENT EENT: ATNC - Respiratory Respiratory: lungs clear, normal breath sounds - Cardiovascular Cardiovascular: regular rate Extremities: no peripheral edema bilat - Gastrointestinal Gastrointestinal: normoactive bowel sounds - Integumentary Integumentary: normal - Neurologic Cranial nerve examination: VFF, face symmetric, tongue midline Detailed motor examination: grossly full strength in - Laboratory Findings CBC and BMP: 04/14/19 04:09 04/19/19 10:29 Abnormal Lab Findings: Abnormal Labs 04/13/19 04/13/19 04/13/19 12:00 12:00 19:07 Hgb 11.6 L Hct 35.1 L MCV 75 L MCH 25 L RDW 16.2 H [place] % (Auto) Sodium Potassium Chloride Carbon Dioxide BUN 36 H Creatinine 2.7 H Glucose 292 H POC Glucose Hemoglobin A1c Calcium Troponin T 0.039 H 0.042 H NT-Pro-B Natriuret Pep 1384 H Total Protein Albumin 3.5 L HDL Cholesterol 65 H Urine Creatinine Urine Total Protein 04/13/19 04/13/19 04/13/19 19:07 19:07 22:36 Hgb Hct MCV MCH RDW [place] % (Auto) Sodium Potassium Chloride Carbon Dioxide BUN Creatinine Glucose POC Glucose Hemoglobin A1c 10.1 H Calcium Troponin T 0.044 H 0.040 H NT-Pro-B Natriuret Pep Total Protein Albumin HDL Cholesterol Urine Creatinine Urine Total Protein 04/14/19 04/14/19 04/14/19 01:20 04:09 04:09 Hgb 11.1 L Hct 32.9 L MCV 75 L MCH 25 L RDW 16.0 H [place] % (Auto) 9.0 H Sodium Potassium Chloride 109.7 H Carbon Dioxide BUN 33 H Creatinine 2.5 H Glucose 269 H POC Glucose 238 H Hemoglobin A1c Calcium Troponin T NT-Pro-B Natriuret Pep Total Protein 5.8 L Albumin 3.0 L HDL Cholesterol Urine Creatinine Urine Total Protein 04/14/19 04/14/19 04/14/19 07:05 08:17 09:21 Hgb Hct MCV MCH RDW [place] % (Auto) Sodium Potassium Chloride Carbon Dioxide BUN Creatinine Glucose POC Glucose 314 H 320 H Hemoglobin A1c Calcium Troponin T 0.035 H NT-Pro-B Natriuret Pep Total Protein Albumin HDL Cholesterol Urine Creatinine Urine Total Protein 04/14/19 04/14/19 04/14/19 11:48 17:13 18:41 Hgb Hct MCV MCH RDW [place] % (Auto) Sodium Potassium Chloride Carbon Dioxide BUN Creatinine Glucose POC Glucose 362 H 182 H 157 H Hemoglobin A1c Calcium Troponin T NT-Pro-B Natriuret Pep Total Protein Albumin HDL Cholesterol Urine Creatinine Urine Total Protein 04/14/19 04/15/19 04/15/19 22:46 01:40 04:03 Hgb Hct MCV MCH RDW [place] % (Auto) Sodium 146 H Potassium Chloride 108.8 H Carbon Dioxide 20 L BUN 36 H Creatinine 2.6 H Glucose 184 H POC Glucose 147 H Hemoglobin A1c Calcium Troponin T NT-Pro-B Natriuret Pep Total Protein Albumin HDL Cholesterol Urine Creatinine 94.7 H Urine Total Protein 374 H 04/15/19 04/16/19 04/16/19 08:13 05:31 08:59 Hgb Hct MCV MCH RDW [place] % (Auto) Sodium 147 H Potassium 3.5 L Chloride 113.4 H Carbon Dioxide BUN 35 H Creatinine 2.8 H Glucose 66 L POC Glucose 148 H 62 L Hemoglobin A1c Calcium Troponin T NT-Pro-B Natriuret Pep Total Protein Albumin HDL Cholesterol Urine Creatinine Urine Total Protein 04/16/19 04/16/19 04/16/19 12:49 17:04 20:59 Hgb Hct MCV MCH RDW [place] % (Auto) Sodium Potassium Chloride Carbon Dioxide BUN Creatinine Glucose POC Glucose 123 H 173 H 272 H Hemoglobin A1c Calcium Troponin T NT-Pro-B Natriuret Pep Total Protein Albumin HDL Cholesterol Urine Creatinine Urine Total Protein 04/17/19 04/17/19 04/17/19 08:29 08:36 12:03 Hgb Hct MCV MCH RDW [place] % (Auto) Sodium Potassium Chloride 107.9 H Carbon Dioxide 17 L BUN 43 H Creatinine 2.9 H Glucose 125 H POC Glucose 128 H 194 H Hemoglobin A1c Calcium 8.3 L Troponin T NT-Pro-B Natriuret Pep Total Protein Albumin HDL Cholesterol Urine Creatinine Urine Total Protein 04/17/19 04/17/19 04/18/19 16:40 23:23 03:40 Hgb Hct MCV MCH RDW [place] % (Auto) Sodium Potassium Chloride 110.5 H Carbon Dioxide 18 L BUN 41 H Creatinine 2.8 H Glucose 119 H POC Glucose 281 H 108 H Hemoglobin A1c Calcium 8.1 L Troponin T NT-Pro-B Natriuret Pep Total Protein Albumin HDL Cholesterol Urine Creatinine Urine Total Protein 04/18/19 04/18/19 04/18/19 07:56 11:34 16:40 Hgb Hct MCV MCH RDW [place] % (Auto) Sodium Potassium Chloride Carbon Dioxide BUN Creatinine Glucose POC Glucose 139 H 135 H 138 H Hemoglobin A1c Calcium Troponin T NT-Pro-B Natriuret Pep Total Protein Albumin HDL Cholesterol Urine Creatinine Urine Total Protein 04/18/19 04/19/19 04/19/19 22:02 07:28 10:29 Hgb Hct MCV MCH RDW [place] % (Auto) Sodium Potassium Chloride 108.3 H Carbon Dioxide 16 L BUN 40 H Creatinine 2.5 H Glucose 227 H POC Glucose 197 H 143 H Hemoglobin A1c Calcium 8.1 L Troponin T NT-Pro-B Natriuret Pep Total Protein Albumin HDL Cholesterol Urine Creatinine Urine Total Protein 04/19/19 11:24 Hgb Hct MCV MCH RDW [place] % (Auto) Sodium Potassium Chloride Carbon Dioxide BUN Creatinine Glucose POC Glucose 250 H Hemoglobin A1c Calcium Troponin T NT-Pro-B Natriuret Pep Total Protein Albumin HDL Cholesterol Urine Creatinine Urine Total Protein
[2019-04-20] MEDS: PRAVASTATIN 80 MG TAB PO SCH (00:47)
[2019-04-20] MEDS: hydrALAZINE 25 MG TAB PO SCH ×3 (00:48→15:04)
[2019-04-20] MEDS: METOPROLOL TARTRATE 100 MG TAB PO SCH ×2 (00:49→08:59)
[2019-04-20] MEDS: INSULIN LISPRO 100 UNIT/ML SUB-Q SCH ×4 (07:15→16:13)
[2019-04-20] MEDS: FOLIC ACID 1 MG TAB PO SCH (08:59)
[2019-04-20] MEDS: CLOPIDOGREL 75 MG TAB PO SCH (08:59)
[2019-04-20] MEDS: THIAMINE 100 MG TAB PO SCH (08:59)
[2019-04-20] MEDS: FAMOTIDINE 20 MG TAB PO SCH (08:59)
[2019-04-20] MEDS: ASPIRIN 81 MG TAB CHEW PO SCH (09:00)
[2019-04-20] MEDS: DOXAZOSIN 1 MG TAB PO SCH (09:00)
[2019-04-20] MEDS: amLODIPine 10 MG TAB PO SCH (09:00)
[2019-04-20] MEDS: LOSARTAN 50 MG TAB PO SCH (09:00)
--- NOTE | 2019-04-20 09:36 | Progress Note ---
Assessment and Plan - Patient Problems (1) Acute renal failure Current Visit: Yes Status: Acute Qualifiers: Acute renal failure type: unspecified Qualified Code(s): N17.9 - Acute kidney failure, unspecified Plan to address problem: UA noted with microscopic hematuria. Will also had workup for GN etiologies including complement levels and ANCA vasculitis studies. However is likely that he has chronic kidney disease secondary likely to hypertension diabetes. Overall renal function remains stable at this time. From a nephrology standpoint further workup can also be done as an outpatient. He stable to be discharged at this time with instructions to follow up with nephrology in 1-2 weeks post discharge (2) Hypertensive chronic kidney disease with stage 1 through stage 4 chronic kidney disease, or unspecified chronic kidney disease Current Visit: Yes Status: Chronic Plan to address problem: Would recommend further weaning IV fluids as his appetite has been increasing. Continue to monitor closely on current regimen. (3) Hypernatremia Current Visit: Yes Status: Acute Plan to address problem: Improved with current hydration. (4) Type 2 diabetes mellitus with hyperglycemia Current Visit: Yes Status: Acute Plan to address problem: Management per primary team. (5) Altered mental status Current Visit: Yes Status: Acute Plan to address problem: Patient is alert this morning and answering questions. Neurology recommendations reviewed. Subjective Date of service: 04/20/19 Principal diagnosis: confusion and shuffling gait X 2-3 months ? Interval history: No acute issues overnight. Neurology workup reviewed. Plan for outpatient workup for NPH. Objective - Vital Signs Vital signs: Vital Signs - 12hr 04/19/19 04/20/19 04/20/19 22:00 00:49 03:27 Temperature 98.6 F Pulse Rate 76 66 Respiratory 18 20 Rate Blood Pressure 162/81 171/74 O2 Sat by Pulse 94 Oximetry 04/20/19 04/20/19 04/20/19 07:09 07:29 08:59 Temperature 99.5 F Pulse Rate 74 74 73 Respiratory 20 Rate Blood Pressure 176/75 176/75 179/75 O2 Sat by Pulse 96 Oximetry - General Appearance General appearance: well-developed, well-nourished, appears stated age EENT: ATNC Neck: no JVD, no thyromegaly Respiratory: Present: Clear to Ascultation Cardiology: regular, S1S2 Gastrointestinal: normal, normoactive bowel sounds Integumentary: no rash, warm and dry Neurologic: no focal deficit, CN 3-12 intact Musculoskeletal: deferred Psychiatric: cooperative - Lab 04/14/19 04:09 04/19/19 10:29 Most recent lab results Calcium 8.1 mg/dL (8.4-10.2) L 04/19/19 10:29 Magnesium 1.80 mg/dL (1.7-2.3) 04/17/19 08:36 Urine Creatinine 94.7 mg/dL (0.1-20.0) H 04/15/19 01:40 Urine Sodium 72 mmol/L 04/15/19 01:40 Urine Total Protein 374 mg/dL (5-11.8) H 04/15/19 01:40 - Allied health notes Allied health notes reviewed: nursing Medications & Allergies - Medications Allergies/Adverse Reactions: Allergies No Known Allergies Allergy (Verified 07/11/13 22:02) Home Medications: Home Medications Medication Instructions Recorded Confirmed Last Taken Type Amlodipine Besylate [Norvasc] 10 mg PO QPM 07/12/13 04/13/19 07/11/13 19:30 History 10 mg Doxazosin [Cardura] 2 mg PO QHS 07/12/13 04/13/19 07/11/13 19:30 History 1 mg Losartan [Cozaar] 100 mg PO QDAY 07/12/13 04/13/19 07/10/13 History 50 mg Metoprolol [Lopressor TAB] 25 mg PO BID 07/12/13 04/13/19 07/11/13 19:30 History 25 mg Simvastatin 40 mg PO QHS 07/06/15 04/13/19 Unknown History Clopidogrel [Plavix] 75 mg PO QDAY 04/13/19 04/13/19 Unknown History NIFEdipine [Nifedipine ER] 90 mg PO QDAY 04/13/19 04/13/19 Unknown History Active Medications: Generic Name Dose Route Start Last Admin Trade Name Freq PRN Reason Stop Dose Admin Acetaminophen 650 mg 04/13/19 16:16 Tylenol PO Q4H PRN Pain MILD(1-3)/Fever >100.5/CUEVA Amlodipine Besylate 10 mg 04/16/19 15:00 04/20/19 09:00 Amlodipine PO 10 mg QDAY SOL Administration Aspirin 81 mg 04/15/19 10:00 04/20/19 09:00 Baby Aspirin PO 81 mg QDAY SOL Administration Clopidogrel Bisulfate 75 mg 04/13/19 17:00 04/20/19 08:59 Plavix PO 75 mg QDAY SOL Administration Dextrose 0 ml 04/14/19 01:26 04/15/19 16:23 D50w (25gm) Syringe IV 10 ml Q30MIN PRN Administration Hypoglycemia Protocol Doxazosin Mesylate 4 mg 04/16/19 15:00 04/20/19 09:00 Cardura PO 4 mg DAILY SOL Administration Famotidine 20 mg 04/13/19 22:00 04/20/19 08:59 Pepcid PO 20 mg DAILY SOL Administration Folic Acid 1 mg 04/17/19 10:00 04/20/19 08:59 Folvite PO 1 mg QDAY SOL Administration Hydralazine HCl 10 mg 04/13/19 15:40 04/19/19 08:16 Apresoline IV 10 mg Q3HR PRN Administration Hypertension Hydralazine HCl 75 mg 04/19/19 09:00 04/20/19 07:29 Apresoline PO 75 mg TID SOL Administration Sodium Chloride 1,000 mls @ 42 mls/hr 04/19/19 09:00 04/19/19 16:18 Nacl 0.45% 1000 Ml IV 42 mls/hr DIRECT SOL Administration Insulin Human Lispro 0 unit 04/14/19 07:30 04/20/19 07:16 Humalog SUB-Q Not Given ACHS SOL Protocol Labetalol HCl 10 mg 04/16/19 09:23 04/19/19 03:54 Labetalol IV 10 mg Q4H PRN Administration Blood Pressure Losartan Potassium 100 mg 04/13/19 17:00 04/20/19 09:00 Cozaar PO 100 mg QDAY SOL Administration Metoprolol Tartrate 100 mg 04/15/19 15:00 04/20/19 08:59 Metoprolol PO 100 mg BID SOL Administration Ondansetron HCl 4 mg 04/13/19 16:16 Zofran IV Q8H PRN Nausea And Vomiting Oxycodone/Acetaminophen 1 tab 04/13/19 16:13 Percocet 5/325 PO Q6H PRN Pain, Moderate (4-6) Pravastatin Sodium 80 mg 04/13/19 22:00 04/20/19 00:47 Pravachol PO 80 mg QHS SOL Administration Sodium Chloride 10 ml 04/13/19 22:00 04/20/19 09:01 Sodium Chloride Flush Syringe 10 Ml IV 10 ml BID SOL Administration Sodium Chloride 10 ml 04/14/19 09:00 Sodium Chloride Flush Syringe 10 Ml IV PRN PRN LINE FLUSH Thiamine HCl 100 mg 04/17/19 10:00 04/20/19 08:59 Vitamin B-1 PO 100 mg QDAY SOL Administration
[2019-04-20 13:36] VITALS: BP 135/65
--- NOTE | 2019-04-20 16:32 | Discharge Summary ---
Providers - Providers Date of Admission: 04/14/19 09:43 Date of discharge: 04/20/19 Attending physician: MARCELLE COX 04/13/19 16:16 Consult to Physician [CONS] Routine Comment: Consulting Provider: JANAY HINTON Physician Instructions: Reason For Exam: LUIS 04/14/19 08:11 Occupational Therapy Evaluate and Treat [CONS] Routine Comment: Reason For Exam: Neuro deficits Physical Therapy Evaluation and Treat [CONS] Routine Comment: Reason For Exam: Neuro deficits 04/14/19 11:47 Consult to Physician [CONS] Routine Comment: Consulting Provider: TELMA NELSON Physician Instructions: Reason For Exam: Aphasia, r/o acute stroke 04/14/19 20:13 Speech Therapy Evaluation and Treat [CONS] Routine Reason For Exam: Pt holds food bolus in mouth 04/19/19 07:23 Consult to Physician [CONS] Routine Comment: Consulting Provider: TORIN MCKEON Physician Instructions: Reason For Exam: ataxia, confusion 04/20/19 08:07 Speech Therapy Evaluation and Treat [CONS] Routine Reason For Exam: Pt improved requesting thin liquids/advanced diet Primary care physician: BREAKER TENDER Hospitalization Condition: Fair Hospital course: Pt is a 63 y/o AAM admitted for LUIS and hypertensive urgency. On 04/14, code stroke was called bs he was noted to be non-verbal and confused. Head CT scan done was neg Ataxia/Aphasia, r/o acute stroke v NPH -cont asa, plavix and statin -CT head neg -MRI head and cervical spine could not be done b/c of lack of cooperation -Echo showed EF of 55-60% Per Neurology--NPH is an outpatient work up. After patient leaves the hospital he can follow up with neurology for LP to see if gait is improved after fluid is removed and if so he can be referred to neurosurgery for shunt Patient is 63-year-old male with past medical history of acute AR, diabetes and hypertension. He presents to with complaints of bilateral leg edema with painful gait and elevated blood pressure 3 days. Patient states he has had leg edema intermittently 1 year, but he was concerned about the discoloration to his right foot. Patient states that he is followed by route delivery clerk Dr. Ngo and he was last seen in office 2 months ago with changes made to his antihypertensive medications. He denies chest pain or shortness of breath on assessment. LUIS vs ckd -probably vasomotor nephropathy due to uncontrolled HTN on CKD -Renal US neg for hydronephrosis UA noted with microscopic hematuria. Had workup for GN etiologies including complement levels and ANCA vasculitis studies. However is likely that he has chronic kidney disease secondary likely to hypertension diabetes. Overall renal function remains stable at this time. Stable to be discharged at this time with instructions to follow up with nephrology in 1-2 weeks post discharge. Acute metabolic encephalopathy -improved -head CT scan neg, still need to r/o NPH Hypertensive urgency -BP controlled -cont amlodipine, cardura, cozaar and metoprolol -will add oral hydralazine, adjust as needed Hypernatremia -resolved w IVF Elevated troponin -probably demand ischemia due to acute kidney injury -troponin levels trended down -echo showed EF of 55-60% without wall motion abnormalities, neg for PFO DM type 2 with hyperglycemia/hypoglycemia -Continue SSI and hypoglycemic protocol -A1c: 10.1 Hypokalemia -repleted and improved AOCD -H/H stable HLD -cont statin Disposition: [place]-[facility] CERT Core Measure Documentation - Palliative Care Palliative Care/ Comfort Measures: Not Applicable - Core Measures Any of the following diagnoses?: none Exam - Constitutional Vitals: Temp Pulse Resp BP Pulse Ox 98.2 F 64 20 135/65 95 04/20/19 13:13 04/20/19 15:04 04/20/19 13:13 04/20/19 15:04 04/20/19 13:13 General appearance: Present: no acute distress, well-nourished - EENT Eyes: Present: PERRL ENT: hearing intact, clear oral mucosa - Neck Neck: Present: supple, normal ROM - Respiratory Respiratory effort: normal Respiratory: bilateral: CTA - Cardiovascular Heart rate: 78 Rhythm: regular Heart Sounds: Present: S1 & S2. Absent: rub, click - Extremities Extremities: pulses symmetrical, No edema Peripheral Pulses: within normal limits - Abdominal General gastrointestinal: Present: soft, non-tender, non-distended, normal bowel sounds Male genitourinary: Present: normal - Integumentary Integumentary: Present: clear, warm, dry - Musculoskeletal Musculoskeletal: generalized weakness, other - Psychiatric Psychiatric: appropriate mood/affect, intact judgment & insight - Neurologic Neurologic: CNII-XII intact, moves all extremities - Allied Health Allied health notes reviewed: nursing, case management Plan Activity: no restrictions Diet: low fat, low cholesterol, low salt Follow up with: PRIMARY CARE, [Primary Care Provider] - 7 Days BALDOMERO SINGH DO [Staff Physician] - 7 Days
[2019-04-23 22:16] LABS: Myeloperoxidase Antibody <1.0 AI (<1.0)
== END 2019-04-20 18:40 | DRG 682 ==
LOC: ED 11:43 → 4A 13:49 → IMCU 04-14 08:30 → OBSVTOIN 04-14 09:43 → 4A 04-15 17:17 → 2B-ACE 04-17 11:17
PROVIDERS: ADMIT Internal Medicine; ATTEND Internal Medicine
DX: N17.0 Acute kidney failure with tubular necrosis (principal); G93.41 Metabolic encephalopathy; E87.0 Hyperosmolality and hypernatremia; R47.01 Aphasia; I16.0 Hypertensive urgency; E11.65 Type 2 diabetes mellitus with hyperglycemia; R27.0 Ataxia, unspecified; N18.9 Chronic kidney disease, unspecified; E11.22 Type 2 diabetes mellitus with diabetic chronic kidney disease; I12.9 Hypertensive chronic kidney disease with stage 1 through stage 4 chronic kidney disease, or unspecified chronic kidney disease; R31.29 Other microscopic hematuria; E87.6 Hypokalemia; D63.8 Anemia in other chronic diseases classified elsewhere; E78.5 Hyperlipidemia, unspecified; I25.2 Old myocardial infarction; Z95.5 Presence of coronary angioplasty implant and graft; Z82.49 Family history of ischemic heart disease and other diseases of the circulatory system; Z83.3 Family history of diabetes mellitus; Z79.899 Other long term (current) drug therapy; Z87.891 Personal history of nicotine dependence
CPT/HCPCS: 36415; 70450; 71046; 76770; 80048; 80053; 80061; 80074; 81001; 82570; 82607; 82747; 82962; 83036; 83735; 83880; 84156; 84300; 84484; 85025; 85610; 85730; 86021; 86160; 90686; 93005; 93010; 93306; 93880; G0378; A9270-GY; J0360; J1815; J2060; J3411; J7030